=== PATIENT | male | born 1960 | race Caucasian/White ===

== ENCOUNTER 2020-02-04 13:26 | Outpatient (REF) | payer MEDICARE, MEDICAID, SELFPAY | END 2020-02-04 13:27 | disposition home or self-care (01) | LOC: HO.LAB 13:26 | PROVIDERS: Visit Provider Internal Medicine | DX: Z20.828 Contact with and (suspected) exposure to other viral communicable diseases (principal) | CPT/HCPCS: C9803; U0003 ==

== ENCOUNTER 2020-11-18 14:38 | Inpatient (IN) | payer MEDICARE, MEDICAID, SELFPAY ==
--- NOTE | ~2020-11-18 | CT_ITS ---
EXAMINATION: CT HEAD WITHOUT CONTRAST CLINICAL INFORMATION: Right-sided weakness and slurred speech COMPARISON: April 20, 2012 TECHNIQUE: Contiguous axial imaging was performed from the skull base to vertex without intravenous administration of contrast. This CT examination was performed using dose optimization techniques as appropriate, variously including the following: *Automated exposure control *Adjustment of mA and/or kV according to patient size (this includes techniques or standardized protocols for targeted exams where dose is matched to indication/reason for exam; i.e. extremities or head) *Use of iterative reconstruction technique DLP: 800 mGy-cm FINDINGS: There is no evidence of acute intracranial hemorrhage or territorial infarction. No abnormal mass effect or midline shift is seen. Brothers to white matter differentiation is well preserved. No extra-axial fluid collections are identified. The ventricles are normal in size. There is no abnormal attenuation within the brain parenchyma. The osseous structures and soft tissues are normal. The mastoid air cells and visualized portions of the paranasal sinuses are well aerated. CT/CT head/brain wo con IMPRESSION: No acute intracranial pathology.
--- NOTE | ~2020-11-18 | XR_ITS ---
EXAMINATION: XR CHEST CLINICAL INFORMATION: Stroke symptoms COMPARISON: October 08, 2007 TECHNIQUE: AP portable view of the chest was obtained. FINDINGS: There are small lung volumes. There is some density at both lung bases consistent with atelectasis. Heart normal size. No evidence of pulmonary edema. No pneumothorax or significant pleural effusion. XR/XR chest 1V IMPRESSION: Small lung volumes with right basilar atelectasis.
--- NOTE | ~2020-11-18 | CT_ITS ---
EXAMINATION: CT ANGIOGRAM OF THE HEAD CT ANGIOGRAM OF THE NECK CLINICAL INFORMATION: Right-sided deficits. COMPARISON: CT scan of the head obtained earlier 07/19/[address] scan 04/20/2012. TECHNIQUE: Test bolus series followed by intravenous administration 70 mL of Omnipaque 350. Helical imaging was performed in the axial plane from the mediastinum to the skull vertex. A delayed CT scan of the head was obtained. The degree of stenosis is based off NASCET criteria. The data was processed at the chief ultrasound technologist workstation for generation of MIP images. Three-dimensional volume rendered reformatted images were also generated at an offline 3-D workstation. This CT examination was performed using dose optimization techniques as appropriate, variously including the following: *Automated exposure control *Adjustment of mA and/or kV according to patient size (this includes techniques or standardized protocols for targeted exams where dose is matched to indication/reason for exam; i.e. extremities or head) *Use of iterative reconstruction technique DLP: 1635 mGy-cm. FINDINGS: CT Head: There is no evidence of acute intracranial hemorrhage or territorial infarction. No abnormal mass-effect or midline shift is seen. Brothers to white matter differentiation is well preserved. No extra-axial fluid collections are identified. There is no abnormal enhancement. The ventricles are normal in size. There is no abnormal attenuation within the brain parenchyma. There are no acute osseous findings. 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 It measures 1.2 x 0.8 cm on the current study and measured 0.9 x 0.6 cm on the prior exam. It has a slightly lobular contour on the current study. The mastoid air cells and visualized portions of the paranasal sinuses are well-aerated. CTA Neck: There is a classic configuration of the arch of the aorta. The great vessels of the neck are widely patent. The subclavian arteries appear normal bilaterally. The common carotid arteries have normal caliber. The carotid bifurcations bilaterally appear normal. The internal carotid arteries in the neck bilaterally have uniform and normal caliber. The origins of both vertebral arteries are well seen and appear normal. Both vertebral arteries are widely patent and demonstrate good opacification throughout their cervical course. The right vertebral artery is slightly dominant. Nonvascular: There are groundglass opacities in the upper lungs bilaterally. There are no pleural effusions or pneumothoraces. The thyroid gland appears normal. There is no cervical lymphadenopathy. The patient is edentulous in the mandible and the maxilla. There are moderate facet arthropathic changes particularly on the left. There are no acute fractures or subluxations in the cervical spine. CTA Head: In the anterior circulation, the distal internal carotid arteries within the neck appear normal. The intracranial internal carotid arteries and their bifurcations appear normal. The middle and anterior cerebral arteries bilaterally demonstrate normal caliber with no evidence of focal stenosis, aneurysm or vascular malformation. There is normal arborization of the middle cerebral artery branches. The anterior communicating artery is normal. In the posterior circulation, the right vertebral artery is dominant. The vertebral arteries intradurally have normal caliber. The basilar artery appears normal. The posterior cerebral arteries have normal caliber. The venous sinuses opacify normally. CT/CT angio head neck IMPRESSION: CT head and neck: 1. There are no acute bleeds or territorial infarcts. There are no masses or areas of abnormal enhancement. 2. 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 3. There is no cervical lymphadenopathy. CTA neck: 1. The cervical carotid and vertebral arteries are patent without evidence of flow-limiting stenosis. 2. Intracranially there are no focal stenoses, aneurysms or vascular malformations.
--- NOTE | ~2020-11-18 | MR_ITS ---
EXAMINATION: MR BRAIN WITHOUT CONTRAST CLINICAL INFORMATION: Transient ischemic attack. Stroke. COMPARISON: CTA head and neck from 11/18/2020. TECHNIQUE: MRI of the brain was obtained using routine sequences without contrast. FINDINGS: No focal restricted diffusion is demonstrated to suggest acute or subacute cerebral ischemia. No evidence of acute or chronic hemorrhagic products on heme-sensitive imaging. Few nonspecific scattered periventricular and deep white matter T2 FLAIR hyperintensities most commonly seen with mild underlying microangiopathy. No additional parenchymal signal abnormalities. The ventricles are normal in morphology and size. No abnormal mass effect. No midline shift. Normal appearance of the pituitary gland. No abnormalities of the posterior fossa with normal appearance of the brainstem and cerebellum. Normal arterial and venous vascular flow voids are present. Normal, homogeneous marrow signal. Mild mucosal thickening of the paranasal sinuses. No signal abnormalities within the mastoids. MR/MR head/brain wo con IMPRESSION: 1. No acute intracranial abnormalities. 2. Minimal nonspecific white matter changes most commonly seen with mild underlying microangiopathy.
--- NOTE | 2020-11-18 14:54 | ECG_ITS ---
Test Reason : AMS Blood Pressure : / mmHG Vent. Rate : 082 BPM Atrial Rate : 082 BPM P-R Int : 152 ms QRS Dur : 080 ms QT Int : 360 ms P-R-T Axes : 026 -17 080 degrees QTc Int : 420 ms Normal sinus rhythm Low voltage QRS Nonspecific T wave abnormality Abnormal ECG When compared with ECG of 19-SEP-2013 11:19, Nonspecific T wave abnormality is now Present Referred By: Ting Pisano Electronically Signed By:PAN COREY
[2020-11-18 14:57] VITALS: BP 130/86; BP 131/91; PULSE 80; PULSE 85; RESP 18; TEMP 36.4; O2SAT 100; O2SAT 95; BMI 32.5
--- NOTE | 2020-11-18 14:59 | ED.NEUROSD ---
HPI - Neuro Symptoms/Deficit General Chief Complaint: Altered Mental Status Stated Complaint: AMS PER HOME HEALTH AIDE Time Seen by Provider: 11/18/20 14:50 Source: patient and EMS Mode of arrival: EMS Limitations: other (poor historian, EMS states a person was there but they didn't give much information either when questioned) History of Present Illness HPI Narrative: lives home alone with staff coming in to check on him, unknown last known well ?this AM or yesterday he states it might have started on Sunday Onset (ago): unknown Location: speech, right arm, right leg and altered History of same: No Severity: moderate Quality: weak and constant Relieving factors: none Exacerbating factors: none Context: sudden onset On Anticoagulants: No Associated symptoms: other (dizziness, fell and hit head) Treatments Prior to Arrival: none Related Data Home Medications Medication Instructions Recorded Confirmed atorvastatin 10 mg tablet 1 tab PO DAILY 11/18/20 11/18/20 benztropine 1 mg tablet 1 tab PO BID 11/18/20 11/18/20 chlorpromazine 100 mg tablet 100 - 200 mg PO BID PRN 11/18/20 11/18/20 chlorpromazine 100 mg tablet 100 mg PO BEDTIME 11/18/20 11/18/20 cyclobenzaprine 10 mg tablet 1 tab PO BEDTIME PRN 11/18/20 11/18/20 divalproex 250 mg tablet,extended 1 tab PO QPM 11/18/20 11/18/20 release 24 hr divalproex 500 mg tablet,extended 1,000 mg PO QPM 11/18/20 11/18/20 release 24 hr divalproex 500 mg tablet,extended 500 mg PO DAILY 11/18/20 11/18/20 release 24 hr famotidine 40 mg tablet 1 tab PO BID 11/18/20 11/18/20 hydroxyzine HCl 50 mg tablet 1 tab PO TID 11/18/20 11/18/20 lisinopril 5 mg tablet 1 tab PO DAILY 11/18/20 11/18/20 propranolol 60 mg tablet 1 tab PO BID 11/18/20 11/18/20 topiramate 50 mg tablet 1 tab PO DAILY 11/18/20 11/18/20 Allergies Allergy/AdvReac Type Severity Reaction Status Date / Time aspirin [ASPIRIN] Allergy Unknown NOSE BLEEDS Verified 11/18/20 14:53 haloperidol [From HALDOL] Allergy Unknown EYES ROLL Verified 11/18/20 14:53 ibuprofen [IBUPROFEN] Allergy Unknown NOSE BLEEDS Verified 11/18/20 14:53 lactose [LACTOSE] Allergy Unknown DIARRHEA Verified 11/18/20 14:53 Penicillins [PENICILLINS] Allergy Unknown NAUSEA Verified 11/18/20 14:53 pineapple [PINEAPPLE] Allergy Unknown ITCHING,LISETH Verified 11/18/20 14:53 H dairy Allergy Unknown Unknown Uncoded 11/18/20 14:53 pineapple Allergy Unknown Unknown Uncoded 11/18/20 14:53 SEASONAL ALLERGIES Allergy Unknown SNEEZING,FACE Uncoded 12/11/19 16:07 SWELLING Review of Systems Review of Systems: Constitutional : No Weight loss, No Fever, No Chills, No Fatigue, No Malaise ENT/Mouth : No sore throat, No Rhinorrhea Eyes: No Eye Pain, No Swelling, No Redness Cardiovascular : No Chest Pain, No SOB, No Dyspnea on Exertion, No Orthopnea, No Edema, No Palpitations Respiratory : No Cough, No Sputum, No Wheezing Gastrointestinal : No Nausea, No Vomiting, No Diarrhea, No Constipation, No abdominal Pain, No Hematochezia, No Melena Genitourinary : No Dysuria, No Urinary Frequency, No Hematuria, Musculoskeletal : No joint pain, No Myalgias, No Joint Swelling Skin : No Skin Lesions, No rash Neuro : pos Weakness, No Numbness, pos Dizziness, No Headache Psych : No Anxiety/Panic, No Depression Heme/Lymph: No Bruising, No Bleeding,No Lymphadenopathy Endocrine : No Polyuria, No Polydipsia All other systems reviewed and are negative COUNT INCLUDES THE [facility] Past Medical History Attestation statement: The following information was validated with the patient. Medical History Bipolar disorder Cognitive developmental delay Diabetes HTN (hypertension) Social History Social History (Updated 11/18/20 @ 15:10 by Ting Pisano DO) Patient Tobacco Use Status: Never used Tobacco Use of substances other than those prescribed or required for medical reasons: No Advance Directives: No Advance Directives Information Provided: No Physical Exam Vital Signs: Vital Signs: Last Vital Signs Temp 97.5 F 11/18/20 14:57 Pulse 80 11/18/20 14:57 Resp 18 11/18/20 14:57 BP 131/91 H 11/18/20 14:57 Pulse Ox 95 11/18/20 14:57 Body Mass Index 32.5 Appearance: Alert. Oriented X3. No acute distress. Flat affect Eyes: Pupils equal, round and reactive to light. ENT: Pharynx normal. Neck: Normal inspection. Neck supple. CVS: Normal heart rate and rhythm. Pulses normal. Respiratory: No respiratory distress. Breath sounds normal. Abdomen: Soft and non-tender. Skin: Skin warm and dry. Normal skin color. Normal skin turgor. Extremities: No lower extremity edema. No calf ttp Neuro: slurred speech, R sided upper and lower ext 4/5 strength. Patient takes a while to absorb information and needs repetition to complete tasks. Course Course Course Narrative: signed out pending CTA and further workup. MDM - Neuro Symptoms/Deficit MDM Narrative Medical decision making narrative: 60 yo male with HTN, DM, bipolar, development delay has not been to our facility since M5 admission in 2014 comes in with very limited history of R sided weakness, dizziness, falls, slurred speech - EMS was told by a caregiver at home that she just found him like this today last known well not known. He reports it started Sunday. He does note he fell and hit his head and has a hard time walking. At this time not a candidate for tPa as I cannot get an accurate onset of symptoms. He also did not come with a medication list and he cannot tell me his home medications. Likely stroke - planned admit, CT head/CTA, EKG, labs Lab Data Result diagrams: 11/18/20 15:56 11/18/20 15:56 Labs: Lab Results 11/18/20 Range/Units 14:57 POC Glucose 143 H (60-115) mg/dL ECG Data Attestation: I personally reviewed and interpreted this ECG as follows: ECG interpretation date: 11/18/20 ECG interpretation time: 15:03 Interpretation: Rate: 82 Rhythm: NSR [place]: left Normal P waves. Normal LUIS ANTONIO. Normal QRS complex. ST T wave : nonspecific, no ELINOR qTC: normal prior studies: no acute ischemia The study has been interpreted contemporaneously by me. . NIH Stroke Scale Internal: Initial- Upon Arrival Level of Consciousness: Alert Level of Consciousness Questions: Answers both questions correctly Level of Consciousness Commands: Performs one task correctly Best Gaze: Normal Visual: No visual loss Facial Palsy: Minor paralyis Motor Arm (Right): Drift Motor Arm (Left): No drift Motor Leg (Right): Drift Motor Leg (Left): No drift Limb Ataxia: Absent Sensory: Normal Best Language: No aphasia Dysarthia: Mild to moderate dysarthria Extinction and Inattention: No abnormality Score: 5 Discharge Plan Discharge Clinical Impression: Weakness Prescriptions: No Action cyclobenzaprine 10 mg tablet 1 tab PO BEDTIME PRN (Reason: muscle spasm) RF: 0 atorvastatin 10 mg tablet 1 tab PO DAILY RF: 0 chlorpromazine 100 mg tablet 100 mg PO BEDTIME RF: 0 famotidine 40 mg tablet 1 tab PO BID RF: 0 propranolol 60 mg tablet 1 tab PO BID RF: 0 hydroxyzine HCl 50 mg tablet 1 tab PO TID RF: 0 divalproex 500 mg tablet extended release 24 hr 500 mg PO DAILY RF: 0 benztropine 1 mg tablet 1 tab PO BID RF: 0 lisinopril 5 mg tablet 1 tab PO DAILY RF: 0 divalproex 250 mg tablet extended release 24 hr 1 tab PO QPM RF: 0 topiramate 50 mg tablet 1 tab PO DAILY RF: 0 divalproex 500 mg tablet extended release 24 hr 1,000 mg PO QPM RF: 0 chlorpromazine 100 mg tablet 100 - 200 mg PO BID PRN (Reason: Agitation) RF: 0
[2020-11-18 15:05] LABS: Glucose, Whole Blood 143 mg/dL (60-115)
--- NOTE | 2020-11-18 15:38 | PHA.MEDREC ---
Pharmacy Consult ? Medication Reconciliation Pharmacy has completed the medication reconciliation. The Med Rec was completed using the external pharmacy fill history, unfortunately I was not able to confirm with the patient or any family members. Alicia Tobar, PharmD [phone]
[2020-11-18 16:04] LABS: MANUAL DIFF FLAG NO
[2020-11-18 16:08] LABS: Basophils Percent Auto 0.4 % (0-2); Eosinophils Percent Auto 0.9 % (0-4); Hematocrit 43.3 % (42-52); Imm Gran Abs Auto 0.01 X10*3/uL (0.00-0.03); Imm Gran Pct Auto 0.2 % (0.0-0.4); Lymphocytes Absolute Auto 2.1 X10*3/uL (1.2-4.9); Lymphocytes Percent Auto 45.3 % (20-40); Mean Corpuscular HGB Conc 34.6 g/dl (31.0-36.0); Mean Corpuscular Hemoglobin 29.9 pg (27.0-33.0); Mean Corpuscular Volume 86.4 fL (80-98); Monocytes Absolute Auto 0.7 X10*3/uL (0.1-1.2); Monocytes Percent Auto 15.3 % (2-11); Neutrophils Absolute Auto 1.8 X10*3/uL (2.0-8.3); Neutrophils Percent Auto 37.9 % (45-73); Platelet Count 137 X10*3/uL (160-400); Red Blood Count 5.01 X10*6/uL (4.60-5.80); Red Cell Distribution Width 13.6 % (11.0-16.0); White Blood Count 4.6 X10*3/uL (4.8-10.8)
[2020-11-18 16:13] LABS: INTERNATIONAL NORM RATIO 1.1 (0.9-1.1); Prothrombin Time 12.8 SEC (9.9-13.0)
[2020-11-18 16:15] LABS: Partial Thromboplastin Time 42.5 SEC (24.1-38.0)
[2020-11-18 16:19] LABS: COVID-19 Test Negative (Negative)
[2020-11-18 16:30] LABS: Ethanol < 10 mg/dL
[2020-11-18 16:32] LABS: Anion Gap 12 (12-20); Blood Urea Nitrogen 15 mg/dL (9-16); Calcium 9.2 mg/dL (8.4-10.2); Carbon Dioxide 24 mmol/L (22-29); Chloride 107 mmol/L (96-108); Creatinine Clr Calc Pharmacy 94.7; Estimated Glomerular Filt Rate > 60; Glucose Random 124 mg/dL (60-115); Potassium 4.4 mmol/L (3.3-5.1); Sodium 139 mmol/L (135-145)
[2020-11-18 16:34] LABS: Alanine Aminotransferase 36 U/L (0-40); Albumin Level 4.4 g/dL (3.5-5.0); Alkaline Phosphatase 50 U/L (39-117); Aspartate Amino Transferase 33 U/L (5-37); Bilirubin Direct 0.3 mg/dL (0.0-0.5); Bilirubin Total 0.8 mg/dL (0.0-1.0); Magnesium 2.1 mg/dL (1.6-2.6); Total Protein 6.9 g/dL (6.5-8.0)
[2020-11-18 16:46] LABS: Troponin-I High Sensitivity < 3.5 ng/L (<3.5-35.0); Valproate 117.1 mcg/mL (50.0-100.0)
[2020-11-18 16:53] LABS: TSH reflex Free T4 2.26 uIU/mL (0.32-4.0)
[2020-11-18] MEDS: iohexoL 350 MG/ML 100 ML INFUS..BTL IV (17:12)
[2020-11-18 18:03] VITALS: BP 118/78; PULSE 72; RESP 20; TEMP 36.5; O2SAT 97
[2020-11-18 18:16] LABS: Glucose Urine UA NEG (NEG); Leukocyte Esterase Urine NEG (NEG); Nitrite Urine NEG (NEG); PH 6.5 (5.0-8.0); Urine Blood NEG (NEG); Urine Ketones NEG (NEG); Urine Protein NEG (NEG-TRACE)
[2020-11-18 18:25] LABS: Appearance Urine HAZY; Color Urine YELLOW
[2020-11-18 18:35] LABS: Amphetamine Screen Urine Not Detected (Not Detect); Barbiturates, Urine Not Detected (Not Detect); Benzodiazepines Screen Urine Not Detected (Not Detect); Cannabinoid Screen Urine Not Detected (Not Detect); Cocaine Screen Urine Not Detected (Not Detect); Fentanyl, urine Not Detected (Not Detect); Opiate Screen Urine Not Detected (Not Detect); Phencyclidine Screen Urine Not Detected (Not Detect)
--- NOTE | 2020-11-18 18:56 | PC.NURSE ---
REPORT TAKEN FROM CHRISTI RN, FIRST CONTACT WITH PT. SITTING UP IN BED SKIN PWD RESPIRATIONS EVEN UNLABORED. OFFERS NO COMPLAINTS AT THIS TIME, PT AWAITING HOSPITALIST CONSULT FOR ADMISSION. AWARE OF PLAN OF CARE.
--- NOTE | 2020-11-18 19:34 | PC.NURSE ---
HOSPITALIST AT BEDSIDE FOR CONSULT.
--- NOTE | 2020-11-18 22:29 | PM.IMHP ---
History of Present Illness Date of Service: 11/18/20 Chief Complaint: Weakness, slurred speech This is a 60-year-old male with past medical history of cognitive developmental delay, diabetes, hypertension, bipolar disorder who presents to the hospital with complaints of weakness of slurred speech. As mentioned patient has a cognitive delay therefore his a poor historian but according to the nursing staff that checks on him at home they noticed the patient to have weakness on the right side. Per patient he is not sure how long it has been going on possibly for a week, he is also reporting slurred speech test also been going on for a week. Patient denies any palpitations, no chest pain, no abdominal pain nausea or vomiting, no diarrhea constipation, no shortness of breath, no urinary symptoms and no lower extremity edema. He reports no injury to the back, no change in his vision, no headache. 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 No cervical carotid or vertebral artery stenosis, and no focal stenosis intracranially. Patient will be admitted for further evaluation Review of Systems Review of Systems: Yes all other systems are reviewed and are negative [facility] Medical History Bipolar disorder Cognitive developmental delay Diabetes HTN (hypertension) Social History Household Members: None Housing: Apartment Do you presently have visiting nurse or other home services: Yes Patient Tobacco Use Status: Never used Tobacco Use of substances other than those prescribed or required for medical reasons: No Have you been hit, kicked, punched, or otherwise hurt by someone within the past year? If so, by whom?: No Do you feel safe in your current relationship?: No Is there a partner from a previous relationship who is making you feel unsafe now?: No Are you made to feel afraid or neglected: No Advance Directives: No Advance Directives Information Provided: No Do you have thoughts of harming others: None Do you have a plan to hurt others: No Plan Recently lost weight without trying: No How much weight loss: Not applicable Eating poorly because of decreased appetite: No Nutrition screen score: 0 Nutrition Risks: No Nutritional Risk Meds Allergies Allergy/AdvReac Type Severity Reaction Status Date / Time aspirin [ASPIRIN] Allergy Unknown NOSE BLEEDS Verified 11/18/20 14:53 haloperidol [From HALDOL] Allergy Unknown EYES ROLL Verified 11/18/20 14:53 ibuprofen [IBUPROFEN] Allergy Unknown NOSE BLEEDS Verified 11/18/20 14:53 lactose [LACTOSE] Allergy Unknown DIARRHEA Verified 11/18/20 14:53 Penicillins [PENICILLINS] Allergy Unknown NAUSEA Verified 11/18/20 14:53 pineapple [PINEAPPLE] Allergy Unknown ITCHING,LISETH Verified 11/18/20 14:53 H dairy Allergy Unknown Unknown Uncoded 11/18/20 14:53 pineapple Allergy Unknown Unknown Uncoded 11/18/20 14:53 SEASONAL ALLERGIES Allergy Unknown SNEEZING,FACE Uncoded 12/11/19 16:07 SWELLING Active Medications: Current Medications Generic Name Dose Route Start Last Admin Trade Name Freq PRN Reason Stop Dose Admin Pharmacy Consult 1 each 11/18/20 14:57 Consult Rx Perform Med Rec MISCELLANE ONCE PRN Consult order Home Medications Medication Instructions Recorded Confirmed Last Taken Type atorvastatin 10 mg tablet 1 tab PO DAILY 11/18/20 11/18/20 Unknown History benztropine 1 mg tablet 1 tab PO BID 11/18/20 11/18/20 Unknown History chlorpromazine 100 mg tablet 100 - 200 mg PO BID PRN 11/18/20 11/18/20 Unknown History chlorpromazine 100 mg tablet 100 mg PO BEDTIME 11/18/20 11/18/20 Unknown History cyclobenzaprine 10 mg tablet 1 tab PO BEDTIME PRN 11/18/20 11/18/20 Unknown History divalproex 250 mg tablet,extended 1 tab PO QPM 11/18/20 11/18/20 Unknown History release 24 hr divalproex 500 mg tablet,extended 1,000 mg PO QPM 11/18/20 11/18/20 Unknown History release 24 hr divalproex 500 mg tablet,extended 500 mg PO DAILY 11/18/20 11/18/20 Unknown History release 24 hr famotidine 40 mg tablet 1 tab PO BID 11/18/20 11/18/20 Unknown History hydroxyzine HCl 50 mg tablet 1 tab PO TID 11/18/20 11/18/20 Unknown History lisinopril 5 mg tablet 1 tab PO DAILY 11/18/20 11/18/20 Unknown History propranolol 60 mg tablet 1 tab PO BID 11/18/20 11/18/20 Unknown History topiramate 50 mg tablet 1 tab PO DAILY 11/18/20 11/18/20 Unknown History Physical Exam Vital Signs and Narrative: Vital Signs: Last Vital Signs Temp 97.7 F 11/18/20 18:03 Pulse 72 11/18/20 18:03 Resp 20 11/18/20 18:03 BP 118/78 11/18/20 18:03 Pulse Ox 97 11/18/20 18:03 Body Mass Index 32.5 Const: General: cooperative and no acute distress Orientation/consciousness: patient oriented x3 Eyes: General: appearance normal, both eyes and all related structures Pupils: Equal, round and reactive pupils present Resp: Effort & Inspection: normal respiratory effort and able to speak in complete sentences Auscultation: clear to auscultation bilaterally Cardio: Rate: regular rate Rhythm: regular rhythm GI: Palpation (GI): Soft to palpation Auscultation: normal bowel sounds Skin: General skin exam: no rashes or lesions noted Neuro: Other: Patient has 3/5 strength in the right upper and lower extremity Speech comprehensible but slow. per patient he reports that he is having slurred speech General: patient oriented x3 Cranial nerves: Yes Equal, round and reactive pupils present Extrem: General: Yes normal to inspection and Yes no pedal edema Results Labs CBC and Chem 7: 11/18/20 15:56 11/18/20 15:56 Labs: Laboratory Results - last 24 hr 11/18/20 11/18/20 11/18/20 14:57 15:56 15:56 MCV 86.4 MCH 29.9 MCHC 34.6 RDW 13.6 Plt Count 137 L MPV 9.0 L Immature Gran % (Auto) 0.2 Neut % (Auto) 37.9 L Lymph % (Auto) 45.3 H [place] % (Auto) 15.3 H Eos % (Auto) 0.9 Baso % (Auto) 0.4 Lymph # (Auto) 2.1 [place] # (Auto) 0.7 Eos # (Auto) 0.0 Baso # (Auto) 0.0 Abs Immat Gran (auto) 0.01 Absolute Neuts (auto) 1.8 L Absolute Nucleated RBC 0.000 Nucleated RBC % (auto) 0.0 PT INR APTT Anion Gap 12 Estim Creat Clear Calc 94.7 Estimated GFR > 60 POC Glucose 143 H Random Glucose 124 H Calcium 9.2 Magnesium Total Bilirubin Direct Bilirubin AST ALT Alkaline Phosphatase Troponin I High Sens Total Protein Albumin TSH Urine Color Urine Appearance Urine pH Ur Specific [place] Urine Protein Urine Glucose (UA) Urine Ketones Urine Blood Urine Nitrite Ur Leukocyte Esterase Urine Opiates Screen Urine Fentanyl Screen Ur Barbiturates Screen Valproic Acid Ur Phencyclidine Scrn Ur Amphetamines Screen U Benzodiazepines Scrn Urine Cocaine Screen U Marijuana (THC) Screen Ethyl Alcohol COVID-19 (NATALIE) COVID-alaTest Com 11/18/20 11/18/20 11/18/20 15:56 15:56 15:56 MCV MCH MCHC RDW Plt Count MPV Immature Gran % (Auto) Neut % (Auto) Lymph % (Auto) [place] % (Auto) Eos % (Auto) Baso % (Auto) Lymph # (Auto) [place] # (Auto) Eos # (Auto) Baso # (Auto) Abs Immat Gran (auto) Absolute Neuts (auto) Absolute Nucleated RBC Nucleated RBC % (auto) PT 12.8 INR 1.1 APTT 42.5 H Anion Gap Estim Creat Clear Calc Estimated GFR POC Glucose Random Glucose Calcium Magnesium 2.1 Total Bilirubin 0.8 Direct Bilirubin 0.3 AST 33 ALT 36 Alkaline Phosphatase 50 Troponin I High Sens Total Protein 6.9 Albumin 4.4 TSH Urine Color Urine Appearance Urine pH Ur Specific [place] Urine Protein Urine Glucose (UA) Urine Ketones Urine Blood Urine Nitrite Ur Leukocyte Esterase Urine Opiates Screen Urine Fentanyl Screen Ur Barbiturates Screen Valproic Acid Ur Phencyclidine Scrn Ur Amphetamines Screen U Benzodiazepines Scrn Urine Cocaine Screen U Marijuana (THC) Screen Ethyl Alcohol COVID-19 (NATALIE) Negative COVID-alaTest Com See Note 11/18/20 11/18/20 11/18/20 15:56 15:56 15:56 MCV MCH MCHC RDW Plt Count MPV Immature Gran % (Auto) Neut % (Auto) Lymph % (Auto) [place] % (Auto) Eos % (Auto) Baso % (Auto) Lymph # (Auto) [place] # (Auto) Eos # (Auto) Baso # (Auto) Abs Immat Gran (auto) Absolute Neuts (auto) Absolute Nucleated RBC Nucleated RBC % (auto) PT INR APTT Anion Gap Estim Creat Clear Calc Estimated GFR POC Glucose Random Glucose Calcium Magnesium Total Bilirubin Direct Bilirubin AST ALT Alkaline Phosphatase Troponin I High Sens < 3.5 Total Protein Albumin TSH 2.26 Urine Color Urine Appearance Urine pH Ur Specific [place] Urine Protein Urine Glucose (UA) Urine Ketones Urine Blood Urine Nitrite Ur Leukocyte Esterase Urine Opiates Screen Urine Fentanyl Screen Ur Barbiturates Screen Valproic Acid 117.1 H* Ur Phencyclidine Scrn Ur Amphetamines Screen U Benzodiazepines Scrn Urine Cocaine Screen U Marijuana (THC) Screen Ethyl Alcohol < 10 COVID-19 (NATALIE) COVID-19 [employer]ries [employer] 11/18/20 11/18/20 17:48 17:48 MCV MCH MCHC RDW Plt Count MPV Immature Gran % (Auto) Neut % (Auto) Lymph % (Auto) [place] % (Auto) Eos % (Auto) Baso % (Auto) Lymph # (Auto) [place] # (Auto) Eos # (Auto) Baso # (Auto) Abs Immat Gran (auto) Absolute Neuts (auto) Absolute Nucleated RBC Nucleated RBC % (auto) PT INR APTT Anion Gap Estim Creat Clear Calc Estimated GFR POC Glucose Random Glucose Calcium Magnesium Total Bilirubin Direct Bilirubin AST ALT Alkaline Phosphatase Troponin I High Sens Total Protein Albumin TSH Urine Color YELLOW Urine Appearance HAZY Urine pH 6.5 Ur Specific [place] 1.010 Urine Protein NEG Urine Glucose (UA) NEG Urine Ketones NEG Urine Blood NEG Urine Nitrite NEG Ur Leukocyte Esterase NEG Urine Opiates Screen Not Detected Urine Fentanyl Screen Not Detected Ur Barbiturates Screen Not Detected Valproic Acid Ur Phencyclidine Scrn Not Detected Ur Amphetamines Screen Not Detected U Benzodiazepines Scrn Not Detected Urine Cocaine Screen Not Detected U Marijuana (THC) Screen Not Detected Ethyl Alcohol COVID-19 (NATALIE) COVID-19 Clin Com Imaging Radiologist's Impressions: Impressions Head CT 11/18/20 14:57 IMPRESSION: No acute intracranial pathology. Head/Neck CTA 11/18/20 14:57 IMPRESSION: CT head and neck: 1. There are no acute bleeds or territorial infarcts. There are no masses or areas of abnormal enhancement. 2. 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 3. There is no cervical lymphadenopathy. CTA neck: 1. The cervical carotid and vertebral arteries are patent without evidence of flow-limiting stenosis. 2. Intracranially there are no focal stenoses, aneurysms or vascular malformations. Chest X-Ray 11/18/20 14:59 IMPRESSION: Small lung volumes with right basilar atelectasis. Assessment and Plan (1) CVA (cerebral vascular accident): Status: Acute (2) Weakness: Status: Acute This is a 60-year-old male with past medical history of cognitive developmental delay, hypertension, diabetes who presents to the hospital with complaints of weakness in possible source speech. Unknown last well known time # CVA - patient has residual weakness on the right side with no report of history of CVA in the past - CT angiogram head and neck and head CT head negative - unknown when his symptoms started - at this time will order an MRI - consult neurology - continue high-dose statin - patient allergic to # seizure disorder? - continue Depakote - although has elevated valproic acid - evaluation by Neurology # hypertension - stable - continue lisinopril and propranolol # diabetes - not on any anti hyperglycemics - low-dose sliding scale insulin - diabetic diet DVT prophylaxis: Lovenox Quality Stroke Does the patient have a stroke diagnosis?: No VTE Prior VTE?: No VTE Risk Level:: Medical - moderate - high VTE Device Contraindication: Treatment Not Indicated VTE Drug Contraindication: N/A - Med Ordered
[2020-11-18 23:51] VITALS: BP 158/96; PULSE 73; RESP 16; TEMP 36.4; O2SAT 98
[2020-11-19] VITALS (10 sets, daily range): BP systolic 112–158; BP diastolic 74–96; PULSE 68–76; RESP 14–20; TEMP 36.1–36.6; O2SAT 95–98; BMI 30.8
[2020-11-19] MEDS: Benztropine Mesylate 1 MG TABLET PO ×3 (00:34→21:43)
[2020-11-19] MEDS: chlorproMAZINE HCl 100 MG TABLET PO ×2 (00:34→21:43)
[2020-11-19] MEDS: Famotidine 20 MG TABLET 40 MG PO ×3 (00:35→21:43)
[2020-11-19] MEDS: Divalproex Sodium ER 500 MG TAB.ER.24H 1000 MG PO ×2 (00:35→21:44)
[2020-11-19] MEDS: Divalproex Sodium ER 250 MG TAB.ER.24H PO ×2 (00:35→21:42)
[2020-11-19] MEDS: Propranolol HCL 20 MG TABLET 60 MG PO ×3 (00:36→21:42)
[2020-11-19] MEDS: hydrOXYzine HCL 50 MG TABLET PO ×3 (00:36→21:43)
[2020-11-19 06:16] LABS: MANUAL DIFF FLAG NO
[2020-11-19 06:36] LABS: Basophils Percent Auto 0.3 % (0-2); Eosinophils Absolute Auto 0.1 X10*3/uL (0.0-0.4); Eosinophils Percent Auto 1.2 % (0-4); Hematocrit 47.7 % (42-52); Imm Gran Abs Auto 0.02 X10*3/uL (0.00-0.03); Imm Gran Pct Auto 0.3 % (0.0-0.4); Lymphocytes Absolute Auto 3.4 X10*3/uL (1.2-4.9); Lymphocytes Percent Auto 50.1 % (20-40); Mean Corpuscular HGB Conc 33.5 g/dl (31.0-36.0); Mean Corpuscular Hemoglobin 29.4 pg (27.0-33.0); Mean Corpuscular Volume 87.7 fL (80-98); Mean Platelet Volume 9.5 fL (9.4-12.4); Monocytes Absolute Auto 0.9 X10*3/uL (0.1-1.2); Monocytes Percent Auto 13.6 % (2-11); Neutrophils Absolute Auto 2.4 X10*3/uL (2.0-8.3); Neutrophils Percent Auto 34.5 % (45-73); Platelet Count 141 X10*3/uL (160-400); Red Blood Count 5.44 X10*6/uL (4.60-5.80); Red Cell Distribution Width 13.6 % (11.0-16.0); White Blood Count 6.8 X10*3/uL (4.8-10.8)
[2020-11-19 06:50] LABS: Anion Gap 12 (12-20); Blood Urea Nitrogen 14 mg/dL (9-16); Calcium 9.4 mg/dL (8.4-10.2); Carbon Dioxide 28 mmol/L (22-29); Chloride 103 mmol/L (96-108); Cholesterol 126 mg/dL; Creatinine Clr Calc Pharmacy 94.2; Estimated Glomerular Filt Rate > 60; Glucose Random 127 mg/dL (60-115); HDL Cholesterol 34 mg/dL; LDL Cholesterol Calculated 67 mg/dl; Potassium 4.1 mmol/L (3.3-5.1); Sodium 139 mmol/L (135-145); Triglycerides 126 mg/dL
[2020-11-19 07:48] LABS: Glucose, Whole Blood 137 mg/dL (60-115)
[2020-11-19] MEDS: Enoxaparin Sodium 40 MG/0.4 ML SYRINGE SUBCUT (08:57)
[2020-11-19] MEDS: Topiramate 25 MG TABLET 50 MG PO (08:58)
[2020-11-19] MEDS: Clopidogrel Bisulfate 75 MG TABLET PO (08:59)
[2020-11-19] MEDS: Divalproex Sodium ER 500 MG TAB.ER.24H PO (08:59)
[2020-11-19] MEDS: lisinopriL 5 MG TABLET PO (08:59)
[2020-11-19] MEDS: Atorvastatin Calcium 10 MG TABLET PO (09:02)
--- NOTE | 2020-11-19 09:20 | MHC.CM.PN ---
Addendum entered by Kalie Escobar 11/19/20 15:21: Julieta, contingents supervisor from [facility] requested an update on DX, POC, anticipated discharge date. She did not have a [facility] ID badge. T/W provided contact info for the Case management office. T/W requested a release of info document by faxed to CM office. The patient was unable to give verbal consent because he was sedated at the time. Julieta stated her understanding of the hospitalization. No additional information was given. She did provide information to this parts data writer. [facility] provides 12 hours of outreach per week. ON weekends ACUTE CARE AVAILABLE 16/10 . Sunday-Sunday [phone]. They may provide transportation at discharge. She stated that the Pt is active with [facility] Pt had stated that he did not have any services. [place] referral has been sent. THE PATIENT HAS BEEN CHANGED TO obs: CODE 44. CHAN 11/19/20. mri NEG FOR cva. CM WILL FOLLOW. Original Note: IMM 11/19/20 Male 60 DX TIA/CVA Patient lives alone. He is independent all functional mobility. DP home no services [facility] shuttle to home at discharge. CM will follow.
[2020-11-19] MEDS: LORazepam 2 MG/ML VIAL 1 MG IVPUSH (09:45)
[2020-11-19 11:28] LABS: Glucose, Whole Blood 137 mg/dL (60-115)
--- NOTE | 2020-11-19 11:41 | PM.NEUROCN ---
History of Present Illness Data of Consult Service Date: 11/19/20 Primary Care Provider: Unknown Physician HPI Reason for consult: Possible stroke 60 years old man with underlying history of cognitive difficulties resident of an institution was brought to hospital with change in mental status and right-sided weakness. He was unable to provide any meaningful history. There was no witnessing of any seizure. There was no history of any trauma. [facility] Past Medical History Medical History Bipolar disorder Cognitive developmental delay Diabetes HTN (hypertension) Social History Social History Household Members: None Housing: Apartment Do you presently have visiting nurse or other home services: Yes Patient Tobacco Use Status: Never used Tobacco Use of substances other than those prescribed or required for medical reasons: No Have you been hit, kicked, punched, or otherwise hurt by someone within the past year? If so, by whom?: No Do you feel safe in your current relationship?: No Is there a partner from a previous relationship who is making you feel unsafe now?: No Are you made to feel afraid or neglected: No Advance Directives: No Advance Directives Information Provided: No Do you have thoughts of harming others: None Do you have a plan to hurt others: No Plan Recently lost weight without trying: No How much weight loss: Not applicable Eating poorly because of decreased appetite: No Nutrition screen score: 0 Nutrition Risks: No Nutritional Risk service: No Current occupational status: disabled Meds Allergies Allergy/AdvReac Type Severity Reaction Status Date / Time aspirin [ASPIRIN] Allergy Unknown NOSE BLEEDS Verified 11/18/20 14:53 haloperidol [From HALDOL] Allergy Unknown EYES ROLL Verified 11/18/20 14:53 ibuprofen [IBUPROFEN] Allergy Unknown NOSE BLEEDS Verified 11/18/20 14:53 lactose [LACTOSE] Allergy Unknown DIARRHEA Verified 11/18/20 14:53 Penicillins [PENICILLINS] Allergy Unknown NAUSEA Verified 11/18/20 14:53 pineapple [PINEAPPLE] Allergy Unknown ITCHING,LISETH Verified 11/18/20 14:53 H dairy Allergy Unknown Unknown Uncoded 11/18/20 14:53 pineapple Allergy Unknown Unknown Uncoded 11/18/20 14:53 SEASONAL ALLERGIES Allergy Unknown SNEEZING,FACE Uncoded 12/11/19 16:07 SWELLING Active Medications: Current Medications Generic Name Dose Route Start Last Admin Trade Name Freq PRN Reason Stop Dose Admin Acetaminophen 650 mg 11/18/20 23:22 Acetaminophen 325 Mg Tablet PO Q6H PRN Pain, Mild (Pain Scale 1-3) Atorvastatin Calcium 10 mg 11/19/20 09:00 11/19/20 09:02 Atorvastatin Calcium 10 Mg Tablet PO 10 mg DAILY TAI Administration Benztropine Mesylate 1 mg 11/18/20 23:22 11/19/20 08:58 Benztropine Mesylate 1 Mg Tablet PO 1 mg BID TAI Administration Chlorpromazine HCl 100 mg 11/18/20 23:22 11/19/20 00:34 Chlorpromazine Hcl 100 Mg Tablet PO 100 mg BEDTIME TAI Administration Chlorpromazine HCl 100 - 200 mg 11/18/20 23:22 Chlorpromazine Hcl 100 Mg Tablet PO BID PRN Agitation Clopidogrel Bisulfate 75 mg 11/19/20 09:00 11/19/20 08:59 Clopidogrel Bisulfate 75 Mg Tablet PO 75 mg DAILY TAI Administration Cyclobenzaprine HCl 10 mg 11/18/20 23:22 Cyclobenzaprine Hcl 10 Mg Tablet PO BEDTIME PRN muscle spasm Dextrose 25 gm 11/18/20 23:22 Dextrose 50 % 25 Gm/50 Ml Vial IVPUSH Q15M PRN per Hypoglycemia Standing Ord. Protocol Divalproex Sodium 250 mg 11/18/20 23:22 11/19/20 00:35 Divalproex Sodium Er 250 Mg Tab.Er.24h PO 250 mg BEDTIME TAI Administration Divalproex Sodium 500 mg 11/19/20 09:00 11/19/20 08:59 Divalproex Sodium Er 500 Mg Tab.Er.24h PO 500 mg DAILY TAI Administration Divalproex Sodium 1,000 mg 11/18/20 23:22 11/19/20 00:35 Divalproex Sodium Er 500 Mg Tab.Er.24h PO 1,000 mg BEDTIME TAI Administration Docusate Sodium 100 mg 11/18/20 23:22 Docusate Sodium 100 Mg Capsule PO DAILY PRN Constipation Enoxaparin Sodium 40 mg 11/19/20 09:00 11/19/20 08:57 Enoxaparin Sodium 40 Mg/0.4 Ml Syringe SUBCUT 40 mg Q24H TAI Administration Famotidine 40 mg 11/18/20 23:22 11/19/20 08:58 Famotidine 20 Mg Tablet PO 40 mg BID TAI Administration Glucose 15 gm 11/18/20 23:22 Glucose Gel 15 Gm Gel..Gram. PO Q15M PRN per Hypoglycemia Standing Ord. Protocol Hydroxyzine HCl 50 mg 11/18/20 23:22 11/19/20 08:59 Hydroxyzine Hcl 50 Mg Tablet PO 50 mg TID TAI Administration Insulin Human Lispro 0 unit 11/19/20 07:30 11/19/20 08:25 Insulin Lispro 100 Unit/Ml 3 Ml Vial SUBCUT Not Given QIDACHS [facility] Protocol Lisinopril 5 mg 11/19/20 09:00 11/19/20 08:59 Lisinopril 5 Mg Tablet PO 5 mg DAILY TAI Administration Protocol Lorazepam 1 mg 11/19/20 08:48 11/19/20 09:45 Lorazepam 2 Mg/Ml Vial IVPUSH 1 mg ONCE PRN Administration anxiety/restlessness Ondansetron HCl 4 mg 11/18/20 23:22 Ondansetron Hcl 4 Mg/2 Ml Vial IVPUSH Q8H PRN Nausea and Vomiting Pharmacy Consult 1 each 11/18/20 14:57 Consult Rx Perform Med Rec MISCELLANE ONCE PRN Consult order Propranolol HCl 60 mg 11/18/20 23:22 11/19/20 09:01 Propranolol Hcl 20 Mg Tablet PO 60 mg BID TAI Administration Protocol Topiramate 50 mg 11/19/20 09:00 11/19/20 08:58 Topiramate 25 Mg Tablet PO 50 mg DAILY TAI Administration Home Medications Medication Instructions Recorded Confirmed Last Taken Type atorvastatin 10 mg tablet 1 tab PO DAILY 11/18/20 11/18/20 Unknown History benztropine 1 mg tablet 1 tab PO BID 11/18/20 11/18/20 Unknown History chlorpromazine 100 mg tablet 100 - 200 mg PO BID PRN 11/18/20 11/18/20 Unknown History chlorpromazine 100 mg tablet 100 mg PO BEDTIME 11/18/20 11/18/20 Unknown History cyclobenzaprine 10 mg tablet 1 tab PO BEDTIME PRN 11/18/20 11/18/20 Unknown History divalproex 250 mg tablet,extended 1 tab PO QPM 11/18/20 11/18/20 Unknown History release 24 hr divalproex 500 mg tablet,extended 1,000 mg PO QPM 11/18/20 11/18/20 Unknown History release 24 hr divalproex 500 mg tablet,extended 500 mg PO DAILY 11/18/20 11/18/20 Unknown History release 24 hr famotidine 40 mg tablet 1 tab PO BID 11/18/20 11/18/20 Unknown History hydroxyzine HCl 50 mg tablet 1 tab PO TID 11/18/20 11/18/20 Unknown History lisinopril 5 mg tablet 1 tab PO DAILY 11/18/20 11/18/20 Unknown History propranolol 60 mg tablet 1 tab PO BID 11/18/20 11/18/20 Unknown History topiramate 50 mg tablet 1 tab PO DAILY 11/18/20 11/18/20 Unknown History Physical Exam Vital Signs: Vital Signs: Last Vital Signs Temp 97.4 F 11/19/20 11:10 Pulse 76 11/19/20 11:10 Resp 20 11/19/20 11:10 BP 136/95 H 11/19/20 11:10 Pulse Ox 98 11/19/20 11:10 Body Mass Index 30.8 Neuro: Other: He was sleeping with eyes closed. He barely responded to verbal commands. He was responding to pain. He followed some one-step commands. Face was symmetrical. Pupils were round reactive. There was no eye deviation or jerking. There was no tremor or convulsion type of activity. Deep tendon reflexes were absent with flexor plantars. There was no abnormal posturing. Results Labs CBC & Chem 7: 11/19/20 05:15 11/19/20 05:15 Labs: Short CBC 11/18/20 11/19/20 Range/Units 15:56 05:15 WBC 4.6 L 6.8 (4.8-10.8) X10*3/uL Hgb 15.0 16.0 (14.0-18.0) g/dl Hct 43.3 47.7 (42-52) % Plt Count 137 L 141 L (160-400) X10*3/uL BMP 11/18/20 11/19/20 15:56 05:15 Sodium 139 139 Potassium 4.4 4.1 Chloride 107 103 Carbon Dioxide 24 28 BUN 15 14 Creatinine 0.99 0.97 Calcium 9.2 9.4 Liver Function 08/26/21 Range/Units 15:56 Total Bilirubin 0.8 (0.0-1.0) mg/dL Direct Bilirubin 0.3 (0.0-0.5) mg/dL AST 33 (5-37) U/L ALT 36 (0-40) U/L Alkaline Phosphatase 50 (39-117) U/L Albumin 4.4 (3.5-5.0) g/dL Urine 11/18/20 Range/Units 17:48 Urine Color YELLOW Urine Appearance HAZY Urine pH 6.5 (5.0-8.0) Ur Specific [place] 1.010 (1.005-1.025) Urine Protein NEG (NEG-TRACE) MG/DL Urine Glucose (UA) NEG (NEG) MG/DL His noncontrast head CT, CTA of brain and neck, and noncontrast brain MRI did not reveal any significant pathology. Assessment and Plan (1) Encephalopathy: Status: Acute 60 years old man with unclear nature of underlying cognitive difficulties was brought to hospital with change in mental status and possible right-sided weakness. At this time there was no focal finding on examination except that he was quite drowsy. Etiology was unclear. There was no evidence of a stroke or focal lesion. Differential diagnosis would include metabolic or toxic encephalopathy or seizure disorder. I would also recommend an EEG to rule out that possibility. Procedures Date of Service Date of Service: 11/19/20
--- NOTE | 2020-11-19 12:06 | HO.PM.IMPN ---
Subjective Subjective Date of Service: 11/19/20 Interval History: the patient was seen and evaluated this morning Sitting in his chair, complaining of shaking episode in his arms and slurred speech sometimes Denies any fever, chills or shortness of breath No reported other overnight events. Systemic review: No fever, chills or focal weakness No chest pain, palpitation No shortness of breath or coughing No abdominal pain, nausea or vomiting No urinary symptoms No any rash or wounds Physical Exam Vital Signs: Vital Signs: Last Vital Signs Temp 97.4 F 11/19/20 11:10 Pulse 76 11/19/20 11:10 Resp 20 11/19/20 11:10 BP 136/95 H 11/19/20 11:10 Pulse Ox 98 11/19/20 11:10 Body Mass Index 30.8 Const: Other: Constitutional : Alert, oriented to self and place, has some stuttering but no clear aphasia Neck : Normal inspection, Supple Cardiovascular : RRR, S1 S2, no lower extremity edema Respiratory : Good bilateral air entry, no crackles, wheezes or rhonchi Gastrointestinal: soft, lax, Normal bowel sounds, Non tender Skin : Warm, Dry Neurological : Alert & oriented x2, No focal deficit, no aphasia, mild bilateral intention tremors Objective Data Current Medications Generic Name Dose Route Start Last Admin Trade Name Freq PRN Reason Stop Dose Admin Acetaminophen 650 mg 11/18/20 23:22 Acetaminophen 325 Mg Tablet PO Q6H PRN Pain, Mild (Pain Scale 1-3) Atorvastatin Calcium 10 mg 11/19/20 09:00 11/19/20 09:02 Atorvastatin Calcium 10 Mg Tablet PO 10 mg DAILY TAI Administration Benztropine Mesylate 1 mg 11/18/20 23:22 11/19/20 08:58 Benztropine Mesylate 1 Mg Tablet PO 1 mg BID TAI Administration Chlorpromazine HCl 100 mg 11/18/20 23:22 11/19/20 00:34 Chlorpromazine Hcl 100 Mg Tablet PO 100 mg BEDTIME TAI Administration Chlorpromazine HCl 100 - 200 mg 11/18/20 23:22 Chlorpromazine Hcl 100 Mg Tablet PO BID PRN Agitation Clopidogrel Bisulfate 75 mg 11/19/20 09:00 11/19/20 08:59 Clopidogrel Bisulfate 75 Mg Tablet PO 75 mg DAILY TAI Administration Cyclobenzaprine HCl 10 mg 11/18/20 23:22 Cyclobenzaprine Hcl 10 Mg Tablet PO BEDTIME PRN muscle spasm Dextrose 25 gm 11/18/20 23:22 Dextrose 50 % 25 Gm/50 Ml Vial IVPUSH Q15M PRN per Hypoglycemia Standing Ord. Protocol Divalproex Sodium 250 mg 11/18/20 23:22 11/19/20 00:35 Divalproex Sodium Er 250 Mg Tab.Er.24h PO 250 mg BEDTIME TAI Administration Divalproex Sodium 500 mg 11/19/20 09:00 11/19/20 08:59 Divalproex Sodium Er 500 Mg Tab.Er.24h PO 500 mg DAILY TAI Administration Divalproex Sodium 1,000 mg 11/18/20 23:22 11/19/20 00:35 Divalproex Sodium Er 500 Mg Tab.Er.24h PO 1,000 mg BEDTIME TAI Administration Docusate Sodium 100 mg 11/18/20 23:22 Docusate Sodium 100 Mg Capsule PO DAILY PRN Constipation Enoxaparin Sodium 40 mg 11/19/20 09:00 11/19/20 08:57 Enoxaparin Sodium 40 Mg/0.4 Ml Syringe SUBCUT 40 mg Q24H TAI Administration Famotidine 40 mg 11/18/20 23:22 11/19/20 08:58 Famotidine 20 Mg Tablet PO 40 mg BID TAI Administration Glucose 15 gm 11/18/20 23:22 Glucose Gel 15 Gm Gel..Gram. PO Q15M PRN per Hypoglycemia Standing Ord. Protocol Hydroxyzine HCl 50 mg 11/18/20 23:22 11/19/20 08:59 Hydroxyzine Hcl 50 Mg Tablet PO 50 mg TID TAI Administration Insulin Human Lispro 0 unit 11/19/20 07:30 11/19/20 11:54 Insulin Lispro 100 Unit/Ml 3 Ml Vial SUBCUT Not Given QIDACHS [facility] Protocol Lisinopril 5 mg 11/19/20 09:00 11/19/20 08:59 Lisinopril 5 Mg Tablet PO 5 mg DAILY TAI Administration Protocol Lorazepam 1 mg 11/19/20 08:48 11/19/20 09:45 Lorazepam 2 Mg/Ml Vial IVPUSH 1 mg ONCE PRN Administration anxiety/restlessness Ondansetron HCl 4 mg 11/18/20 23:22 Ondansetron Hcl 4 Mg/2 Ml Vial IVPUSH Q8H PRN Nausea and Vomiting Pharmacy Consult 1 each 11/18/20 14:57 Consult Rx Perform Med Rec MISCELLANE ONCE PRN Consult order Propranolol HCl 60 mg 11/18/20 23:22 11/19/20 09:01 Propranolol Hcl 20 Mg Tablet PO 60 mg BID TAI Administration Protocol Topiramate 50 mg 11/19/20 09:00 11/19/20 08:58 Topiramate 25 Mg Tablet PO 50 mg DAILY TAI Administration Labs CBC & Chem 7: 11/19/20 05:15 11/19/20 05:15 Labs: Laboratory Results - last 24 hr 11/18/20 11/18/20 11/18/20 14:57 15:56 15:56 MCV 86.4 MCH 29.9 MCHC 34.6 RDW 13.6 Plt Count 137 L MPV 9.0 L Immature Gran % (Auto) 0.2 Neut % (Auto) 37.9 L Lymph % (Auto) 45.3 H [place] % (Auto) 15.3 H Eos % (Auto) 0.9 Baso % (Auto) 0.4 Lymph # (Auto) 2.1 [place] # (Auto) 0.7 Eos # (Auto) 0.0 Baso # (Auto) 0.0 Abs Immat Gran (auto) 0.01 Absolute Neuts (auto) 1.8 L Absolute Nucleated RBC 0.000 Nucleated RBC % (auto) 0.0 PT INR APTT Anion Gap 12 Estim Creat Clear Calc 94.7 Estimated GFR > 60 POC Glucose 143 H Random Glucose 124 H Calcium 9.2 Magnesium Total Bilirubin Direct Bilirubin AST ALT Alkaline Phosphatase Troponin I High Sens Total Protein Albumin Triglycerides Cholesterol LDL Cholesterol, Calc HDL Cholesterol TSH Urine Color Urine Appearance Urine pH Ur Specific [place] Urine Protein Urine Glucose (UA) Urine Ketones Urine Blood Urine Nitrite Ur Leukocyte Esterase Urine Opiates Screen Urine Fentanyl Screen Ur Barbiturates Screen Valproic Acid Ur Phencyclidine Scrn Ur Amphetamines Screen U Benzodiazepines Scrn Urine Cocaine Screen U Marijuana (THC) Screen Ethyl Alcohol COVID-19 ([facility]) COVID-19 Clin Com 11/18/20 11/18/20 11/18/20 15:56 15:56 15:56 MCV MCH MCHC RDW Plt Count MPV Immature Gran % (Auto) Neut % (Auto) Lymph % (Auto) [place] % (Auto) Eos % (Auto) Baso % (Auto) Lymph # (Auto) [place] # (Auto) Eos # (Auto) Baso # (Auto) Abs Immat Gran (auto) Absolute Neuts (auto) Absolute Nucleated RBC Nucleated RBC % (auto) PT 12.8 INR 1.1 APTT 42.5 H Anion Gap Estim Creat Clear Calc Estimated GFR POC Glucose Random Glucose Calcium Magnesium 2.1 Total Bilirubin 0.8 Direct Bilirubin 0.3 AST 33 ALT 36 Alkaline Phosphatase 50 Troponin I High Sens Total Protein 6.9 Albumin 4.4 Triglycerides Cholesterol LDL Cholesterol, Calc HDL Cholesterol TSH Urine Color Urine Appearance Urine pH Ur Specific [place] Urine Protein Urine Glucose (UA) Urine Ketones Urine Blood Urine Nitrite Ur Leukocyte Esterase Urine Opiates Screen Urine Fentanyl Screen Ur Barbiturates Screen Valproic Acid Ur Phencyclidine Scrn Ur Amphetamines Screen U Benzodiazepines Scrn Urine Cocaine Screen U Marijuana (THC) Screen Ethyl Alcohol COVID-19 ([facility]) Negative COVID-19 Clin Com See Note 11/18/20 11/18/20 11/18/20 15:56 15:56 15:56 MCV MCH MCHC RDW Plt Count MPV Immature Gran % (Auto) Neut % (Auto) Lymph % (Auto) [place] % (Auto) Eos % (Auto) Baso % (Auto) Lymph # (Auto) [place] # (Auto) Eos # (Auto) Baso # (Auto) Abs Immat Gran (auto) Absolute Neuts (auto) Absolute Nucleated RBC Nucleated RBC % (auto) PT INR APTT Anion Gap Estim Creat Clear Calc Estimated GFR POC Glucose Random Glucose Calcium Magnesium Total Bilirubin Direct Bilirubin AST ALT Alkaline Phosphatase Troponin I High Sens < 3.5 Total Protein Albumin Triglycerides Cholesterol LDL Cholesterol, Calc HDL Cholesterol TSH 2.26 Urine Color Urine Appearance Urine pH Ur Specific [place] Urine Protein Urine Glucose (UA) Urine Ketones Urine Blood Urine Nitrite Ur Leukocyte Esterase Urine Opiates Screen Urine Fentanyl Screen Ur Barbiturates Screen Valproic Acid 117.1 H* Ur Phencyclidine Scrn Ur Amphetamines Screen U Benzodiazepines Scrn Urine Cocaine Screen U Marijuana (THC) Screen Ethyl Alcohol < 10 COVID-19 ([facility]) COVID-19 Clin Com 11/18/20 11/18/20 11/19/20 17:48 17:48 05:15 MCV 87.7 MCH 29.4 MCHC 33.5 RDW 13.6 Plt Count 141 L MPV 9.5 Immature Gran % (Auto) 0.3 Neut % (Auto) 34.5 L Lymph % (Auto) 50.1 H [place] % (Auto) 13.6 H Eos % (Auto) 1.2 Baso % (Auto) 0.3 Lymph # (Auto) 3.4 [place] # (Auto) 0.9 Eos # (Auto) 0.1 Baso # (Auto) 0.0 Abs Immat Gran (auto) 0.02 Absolute Neuts (auto) 2.4 Absolute Nucleated RBC 0.000 Nucleated RBC % (auto) 0.0 PT INR APTT Anion Gap Estim Creat Clear Calc Estimated GFR POC Glucose Random Glucose Calcium Magnesium Total Bilirubin Direct Bilirubin AST ALT Alkaline Phosphatase Troponin I High Sens Total Protein Albumin Triglycerides Cholesterol LDL Cholesterol, Calc HDL Cholesterol TSH Urine Color YELLOW Urine Appearance HAZY Urine pH 6.5 Ur Specific [place] 1.010 Urine Protein NEG Urine Glucose (UA) NEG Urine Ketones NEG Urine Blood NEG Urine Nitrite NEG Ur Leukocyte Esterase NEG Urine Opiates Screen Not Detected Urine Fentanyl Screen Not Detected Ur Barbiturates Screen Not Detected Valproic Acid Ur Phencyclidine Scrn Not Detected Ur Amphetamines Screen Not Detected U Benzodiazepines Scrn Not Detected Urine Cocaine Screen Not Detected U Marijuana (THC) Screen Not Detected Ethyl Alcohol COVID-19 ([facility]) COVID-19 Clin Com 11/19/20 11/19/20 11/19/20 05:15 07:25 11:10 MCV MCH MCHC RDW Plt Count MPV Immature Gran % (Auto) Neut % (Auto) Lymph % (Auto) [place] % (Auto) Eos % (Auto) Baso % (Auto) Lymph # (Auto) [place] # (Auto) Eos # (Auto) Baso # (Auto) Abs Immat Gran (auto) Absolute Neuts (auto) Absolute Nucleated RBC Nucleated RBC % (auto) PT INR APTT Anion Gap 12 Estim Creat Clear Calc 94.2 Estimated GFR > 60 POC Glucose 137 H 137 H Random Glucose 127 H Calcium 9.4 Magnesium Total Bilirubin Direct Bilirubin AST ALT Alkaline Phosphatase Troponin I High Sens Total Protein Albumin Triglycerides 126 Cholesterol 126 LDL Cholesterol, Calc 67 HDL Cholesterol 34 TSH Urine Color Urine Appearance Urine pH Ur Specific [place] Urine Protein Urine Glucose (UA) Urine Ketones Urine Blood Urine Nitrite Ur Leukocyte Esterase Urine Opiates Screen Urine Fentanyl Screen Ur Barbiturates Screen Valproic Acid Ur Phencyclidine Scrn Ur Amphetamines Screen U Benzodiazepines Scrn Urine Cocaine Screen U Marijuana (THC) Screen Ethyl Alcohol COVID-19 ([facility]) COVID-19 Clin Com Assessment and Plan (1) Encephalopathy: Status: Acute (2) Weakness: Status: Acute Assessment and Plan: This is a 60-year-old male with past medical history of cognitive developmental delay, hypertension, diabetes who presents to the hospital with complaints of weakness in possible source speech. Unknown last well known time # metabolic encephalopathy Could be secondary to seizure activity or transient encephalopathy No residual weakness noted on exam MRI head, CT angiogram head and neck and head CT head negative Neurology input appreciated, check EEG continue statin Received Plavix # seizure disorder continue Depakote Pending EEG # hypertension continue lisinopril and propranolol # diabetes not on any anti hyperglycemics low-dose sliding scale insulin diabetic diet DVT prophylaxis Lovenox Quality Stroke Does the patient have a stroke diagnosis?: No VTE Prior VTE?: No VTE Risk Level:: Medical - moderate - high VTE Device Contraindication: Treatment Not Indicated VTE Drug Contraindication: N/A - Med Ordered
[2020-11-19 16:18] LABS: Glucose, Whole Blood 134 mg/dL (60-115)
[2020-11-19 20:36] LABS: Glucose, Whole Blood 139 mg/dL (60-115)
[2020-11-20] VITALS (8 sets, daily range): BP systolic 104–120; BP diastolic 71–88; PULSE 62–88; RESP 15–19; TEMP 36.1–37.1; O2SAT 96–99
[2020-11-20 07:26] LABS: Glucose, Whole Blood 129 mg/dL (60-115)
[2020-11-20] MEDS: Atorvastatin Calcium 10 MG TABLET PO (08:03)
[2020-11-20] MEDS: Benztropine Mesylate 1 MG TABLET PO ×2 (08:03→21:18)
[2020-11-20] MEDS: Propranolol HCL 20 MG TABLET 60 MG PO ×2 (08:07→21:17)
[2020-11-20] MEDS: hydrOXYzine HCL 50 MG TABLET PO ×3 (08:07→21:17)
[2020-11-20] MEDS: Enoxaparin Sodium 40 MG/0.4 ML SYRINGE SUBCUT (08:07)
[2020-11-20] MEDS: Famotidine 20 MG TABLET 40 MG PO ×2 (08:08→21:18)
[2020-11-20] MEDS: lisinopriL 5 MG TABLET PO (08:08)
[2020-11-20] MEDS: Topiramate 25 MG TABLET 50 MG PO (08:09)
[2020-11-20] MEDS: Divalproex Sodium ER 500 MG TAB.ER.24H PO (08:09)
[2020-11-20 09:30] LABS: Ammonia 59 umol/L (13-55)
[2020-11-20 09:54] LABS: Valproate 128.4 mcg/mL (50.0-100.0)
[2020-11-20 10:01] LABS: Alanine Aminotransferase 38 U/L (0-40); Albumin Level 4.4 g/dL (3.5-5.0); Alkaline Phosphatase 47 U/L (39-117); Aspartate Amino Transferase 27 U/L (5-37); Bilirubin Direct 0.3 mg/dL (0.0-0.5); Bilirubin Total 0.6 mg/dL (0.0-1.0)
[2020-11-20] MEDS: Lactulose 20 GM/30 ML SOLUTION PO (10:50)
--- NOTE | 2020-11-20 11:13 | PM.NEUROCN ---
History of Present Illness Data of Consult Service Date: 11/20/20 Primary Care Provider: Unknown Physician HPI Reason for consult: Encephalopathy 60 years old man who was brought to hospital with change in mental status. I saw him yesterday. [facility] Past Medical History Medical History Bipolar disorder Cognitive developmental delay Diabetes HTN (hypertension) Social History Social History Household Members: None Housing: Apartment Do you presently have visiting nurse or other home services: Yes Patient Tobacco Use Status: Never used Tobacco Use of substances other than those prescribed or required for medical reasons: No Currently Displaying Signs/Symptoms of Drug Intoxication Withdrawal: No Have you been hit, kicked, punched, or otherwise hurt by someone within the past year? If so, by whom?: No Do you feel safe in your current relationship?: No Is there a partner from a previous relationship who is making you feel unsafe now?: No Are you made to feel afraid or neglected: No Advance Directives: No Advance Directives Information Provided: No Do you have thoughts of harming others: None Do you have a plan to hurt others: No Plan Recently lost weight without trying: No How much weight loss: Not applicable Eating poorly because of decreased appetite: No Nutrition screen score: 0 Nutrition Risks: No Nutritional Risk service: No Current occupational status: disabled Meds Allergies Allergy/AdvReac Type Severity Reaction Status Date / Time aspirin [ASPIRIN] Allergy Unknown NOSE BLEEDS Verified 11/18/20 14:53 haloperidol [From HALDOL] Allergy Unknown EYES ROLL Verified 11/18/20 14:53 ibuprofen [IBUPROFEN] Allergy Unknown NOSE BLEEDS Verified 11/18/20 14:53 lactose [LACTOSE] Allergy Unknown DIARRHEA Verified 11/18/20 14:53 Penicillins [PENICILLINS] Allergy Unknown NAUSEA Verified 11/18/20 14:53 pineapple [PINEAPPLE] Allergy Unknown ITCHING,LISETH Verified 11/18/20 14:53 H dairy Allergy Unknown Unknown Uncoded 11/18/20 14:53 pineapple Allergy Unknown Unknown Uncoded 11/18/20 14:53 SEASONAL ALLERGIES Allergy Unknown SNEEZING,FACE Uncoded 12/11/19 16:07 SWELLING Active Medications: Current Medications Generic Name Dose Route Start Last Admin Trade Name Freq PRN Reason Stop Dose Admin Acetaminophen 650 mg 11/18/20 23:22 Acetaminophen 325 Mg Tablet PO Q6H PRN Pain, Mild (Pain Scale 1-3) Atorvastatin Calcium 10 mg 11/19/20 09:00 11/20/20 08:03 Atorvastatin Calcium 10 Mg Tablet PO 10 mg DAILY TAI Administration Benztropine Mesylate 1 mg 11/18/20 23:22 11/20/20 08:03 Benztropine Mesylate 1 Mg Tablet PO 1 mg BID TAI Administration Chlorpromazine HCl 100 mg 11/18/20 23:22 11/19/20 21:43 Chlorpromazine Hcl 100 Mg Tablet PO 100 mg BEDTIME TAI Administration Chlorpromazine HCl 100 - 200 mg 11/18/20 23:22 Chlorpromazine Hcl 100 Mg Tablet PO BID PRN Agitation Cyclobenzaprine HCl 10 mg 11/18/20 23:22 Cyclobenzaprine Hcl 10 Mg Tablet PO BEDTIME PRN muscle spasm Dextrose 25 gm 11/18/20 23:22 Dextrose 50 % 25 Gm/50 Ml Vial IVPUSH Q15M PRN per Hypoglycemia Standing Ord. Protocol Divalproex Sodium 500 mg 11/19/20 09:00 11/20/20 08:09 Divalproex Sodium Er 500 Mg Tab.Er.24h PO 500 mg DAILY TAI Administration Divalproex Sodium 1,000 mg 11/18/20 23:22 11/19/20 21:44 Divalproex Sodium Er 500 Mg Tab.Er.24h PO 1,000 mg BEDTIME TAI Administration Docusate Sodium 100 mg 11/18/20 23:22 Docusate Sodium 100 Mg Capsule PO DAILY PRN Constipation Enoxaparin Sodium 40 mg 11/19/20 09:00 11/20/20 08:07 Enoxaparin Sodium 40 Mg/0.4 Ml Syringe SUBCUT 40 mg Q24H TAI Administration Famotidine 40 mg 11/18/20 23:22 11/20/20 08:08 Famotidine 20 Mg Tablet PO 40 mg BID TAI Administration Glucose 15 gm 11/18/20 23:22 Glucose Gel 15 Gm Gel..Gram. PO Q15M PRN per Hypoglycemia Standing Ord. Protocol Hydroxyzine HCl 50 mg 11/18/20 23:22 11/20/20 08:07 Hydroxyzine Hcl 50 Mg Tablet PO 50 mg TID TAI Administration Insulin Human Lispro 0 unit 11/19/20 07:30 11/20/20 07:59 Insulin Lispro 100 Unit/Ml 3 Ml Vial SUBCUT Not Given [facility]HS [facility] Protocol Lisinopril 5 mg 11/19/20 09:00 11/20/20 08:08 Lisinopril 5 Mg Tablet PO 5 mg DAILY TAI Administration Protocol Lorazepam 1 mg 11/19/20 08:48 11/19/20 09:45 Lorazepam 2 Mg/Ml Vial IVPUSH 1 mg ONCE PRN Administration anxiety/restlessness Ondansetron HCl 4 mg 11/18/20 23:22 Ondansetron Hcl 4 Mg/2 Ml Vial IVPUSH Q8H PRN Nausea and Vomiting Pharmacy Consult 1 each 11/18/20 14:57 Consult Rx Perform Med Rec MISCELLANE ONCE PRN Consult order Propranolol HCl 60 mg 11/18/20 23:22 11/20/20 08:07 Propranolol Hcl 20 Mg Tablet PO 60 mg BID TAI Administration Protocol Topiramate 50 mg 11/19/20 09:00 11/20/20 08:09 Topiramate 25 Mg Tablet PO 50 mg DAILY TAI Administration Home Medications Medication Instructions Recorded Confirmed Last Taken Type atorvastatin 10 mg tablet 1 tab PO DAILY 11/18/20 11/18/20 Unknown History benztropine 1 mg tablet 1 tab PO BID 11/18/20 11/18/20 Unknown History chlorpromazine 100 mg tablet 100 - 200 mg PO BID PRN 11/18/20 11/18/20 Unknown History chlorpromazine 100 mg tablet 100 mg PO BEDTIME 11/18/20 11/18/20 Unknown History cyclobenzaprine 10 mg tablet 1 tab PO BEDTIME PRN 11/18/20 11/18/20 Unknown History divalproex 250 mg tablet,extended 1 tab PO QPM 11/18/20 11/18/20 Unknown History release 24 hr divalproex 500 mg tablet,extended 1,000 mg PO QPM 11/18/20 11/18/20 Unknown History release 24 hr divalproex 500 mg tablet,extended 500 mg PO DAILY 11/18/20 11/18/20 Unknown History release 24 hr famotidine 40 mg tablet 1 tab PO BID 11/18/20 11/18/20 Unknown History hydroxyzine HCl 50 mg tablet 1 tab PO TID 11/18/20 11/18/20 Unknown History lisinopril 5 mg tablet 1 tab PO DAILY 11/18/20 11/18/20 Unknown History propranolol 60 mg tablet 1 tab PO BID 11/18/20 11/18/20 Unknown History topiramate 50 mg tablet 1 tab PO DAILY 11/18/20 11/18/20 Unknown History Physical Exam Vital Signs: Vital Signs: Last Vital Signs Temp 97.9 F 11/20/20 08:00 Pulse 87 11/20/20 08:08 Resp 18 11/20/20 08:00 BP 120/83 11/20/20 08:00 Pulse Ox 96 11/20/20 08:00 Body Mass Index 30.8 Neuro: Other: His exam today revealed that he was much more alert and awake made eye contact answer simple questions told me that he lived in [place] and did not drive. He was following commands. There was no focal weakness. Results Labs CBC & Chem 7: 11/19/20 05:15 11/19/20 05:15 Labs: Liver Function 11/20/20 Range/Units 08:36 Total Bilirubin 0.6 (0.0-1.0) mg/dL Direct Bilirubin 0.3 (0.0-0.5) mg/dL AST 27 (5-37) U/L ALT 38 (0-40) U/L Alkaline Phosphatase 47 (39-117) U/L Albumin 4.4 (3.5-5.0) g/dL Assessment and Plan (1) Encephalopathy: Status: Acute 60 years old man with metabolic toxic encephalopathy. It was probably due to high level of valproic acid level and high ammonia. My recommendation at this time is to discontinue Depakote. This medicine can result in obesity, which he has, and can also result in liver problems as he has developed revealing high ammonia. I would recommend asking psychiatric to consider an alternate mood stabilizer. There was no evidence of epilepsy. Procedures Date of Service Date of Service: 11/20/20
--- NOTE | 2020-11-20 11:16 | P.PNIM_ITS ---
Subjective Subjective Date of Service: 11/20/20 Interval History: the patient was seen and evaluated this morning Laying in bed, still feeling little bit with mild confusion lethargy Denies any fever, chills or shortness of breath No reported other overnight events. Systemic review: No fever, chills but repeat generalized weakness and feeling off No chest pain, palpitation No shortness of breath or coughing No abdominal pain, nausea or vomiting No urinary symptoms No any rash or wounds Physical Exam Vital Signs: Vital Signs: Last Vital Signs Temp 97.9 F 11/20/20 08:00 Pulse 87 11/20/20 08:08 Resp 18 11/20/20 08:00 BP 120/83 11/20/20 08:00 Pulse Ox 96 11/20/20 08:00 Body Mass Index 30.8 Const: Other: Constitutional : Alert, oriented to self and place, statin has some stuttering and looks general weaker Neck : Normal inspection, Supple Cardiovascular : RRR, S1 S2, no lower extremity edema Respiratory : Good bilateral air entry, no crackles, wheezes or rhonchi Gastrointestinal: soft, lax, Normal bowel sounds, Non tender Skin : Warm, Dry Neurological : Alert & oriented x2, No focal deficit, no aphasia, mild bilateral intention tremors Objective Data Current Medications Generic Name Dose Route Start Last Admin Trade Name Freq PRN Reason Stop Dose Admin Acetaminophen 650 mg 11/18/20 23:22 Acetaminophen 325 Mg Tablet PO Q6H PRN Pain, Mild (Pain Scale 1-3) Atorvastatin Calcium 10 mg 11/19/20 09:00 11/20/20 08:03 Atorvastatin Calcium 10 Mg Tablet PO 10 mg DAILY TAI Administration Benztropine Mesylate 1 mg 11/18/20 23:22 11/20/20 08:03 Benztropine Mesylate 1 Mg Tablet PO 1 mg BID TAI Administration Chlorpromazine HCl 100 mg 11/18/20 23:22 11/19/20 21:43 Chlorpromazine Hcl 100 Mg Tablet PO 100 mg BEDTIME TAI Administration Chlorpromazine HCl 100 - 200 mg 11/18/20 23:22 Chlorpromazine Hcl 100 Mg Tablet PO BID PRN Agitation Cyclobenzaprine HCl 10 mg 11/18/20 23:22 Cyclobenzaprine Hcl 10 Mg Tablet PO BEDTIME PRN muscle spasm Dextrose 25 gm 11/18/20 23:22 Dextrose 50 % 25 Gm/50 Ml Vial IVPUSH Q15M PRN per Hypoglycemia Standing Ord. Protocol Divalproex Sodium 500 mg 11/19/20 09:00 11/20/20 08:09 Divalproex Sodium Er 500 Mg Tab.Er.24h PO 500 mg DAILY TAI Administration Divalproex Sodium 1,000 mg 11/18/20 23:22 11/19/20 21:44 Divalproex Sodium Er 500 Mg Tab.Er.24h PO 1,000 mg BEDTIME TAI Administration Docusate Sodium 100 mg 11/18/20 23:22 Docusate Sodium 100 Mg Capsule PO DAILY PRN Constipation Enoxaparin Sodium 40 mg 11/19/20 09:00 11/20/20 08:07 Enoxaparin Sodium 40 Mg/0.4 Ml Syringe SUBCUT 40 mg Q24H TAI Administration Famotidine 40 mg 11/18/20 23:22 11/20/20 08:08 Famotidine 20 Mg Tablet PO 40 mg BID TAI Administration Glucose 15 gm 11/18/20 23:22 Glucose Gel 15 Gm Gel..Gram. PO Q15M PRN per Hypoglycemia Standing Ord. Protocol Hydroxyzine HCl 50 mg 11/18/20 23:22 11/20/20 08:07 Hydroxyzine Hcl 50 Mg Tablet PO 50 mg TID TAI Administration Insulin Human Lispro 0 unit 11/19/20 07:30 11/20/20 07:59 Insulin Lispro 100 Unit/Ml 3 Ml Vial SUBCUT Not Given QIDAS [facility] Protocol Lisinopril 5 mg 11/19/20 09:00 11/20/20 08:08 Lisinopril 5 Mg Tablet PO 5 mg DAILY TAI Administration Protocol Lorazepam 1 mg 11/19/20 08:48 11/19/20 09:45 Lorazepam 2 Mg/Ml Vial IVPUSH 1 mg ONCE PRN Administration anxiety/restlessness Ondansetron HCl 4 mg 11/18/20 23:22 Ondansetron Hcl 4 Mg/2 Ml Vial IVPUSH Q8H PRN Nausea and Vomiting Pharmacy Consult 1 each 11/18/20 14:57 Consult Rx Perform Med Rec MISCELLANE ONCE PRN Consult order Propranolol HCl 60 mg 11/18/20 23:22 11/20/20 08:07 Propranolol Hcl 20 Mg Tablet PO 60 mg BID TAI Administration Protocol Topiramate 50 mg 11/19/20 09:00 11/20/20 08:09 Topiramate 25 Mg Tablet PO 50 mg DAILY TAI Administration Labs CBC & Chem 7: 11/19/20 05:15 11/19/20 05:15 Labs: Laboratory Results - last 24 hr 11/19/20 11/19/20 11/19/20 11:10 16:00 20:19 POC Glucose 137 H 134 H 139 H Total Bilirubin Direct Bilirubin AST ALT Alkaline Phosphatase Ammonia Total Protein Albumin Valproic Acid 11/20/20 11/20/20 11/20/20 07:10 08:36 08:36 POC Glucose 129 H Total Bilirubin 0.6 Direct Bilirubin 0.3 AST 27 ALT 38 Alkaline Phosphatase 47 Ammonia 59 H Total Protein 7.0 Albumin 4.4 Valproic Acid 128.4 H* Assessment and Plan (1) Encephalopathy: Status: Acute (2) Weakness: Status: Acute Assessment and Plan: This is a 60-year-old male with past medical history of cognitive developmental delay, hypertension, diabetes who presents to the hospital with complaints of weakness in possible source speech. Unknown last well known time # metabolic encephalopathy # 2/2 Valproate toxicity Valproic level of 128 this morning with elevated ammonia MRI head, CT angiogram head and neck and head CT head negative Neurology input appreciated, to hold valproic acid until levels reach below 80 then start 500 bedtime continue statin DC Plavix # hypertension continue lisinopril and propranolol # diabetes not on any anti hyperglycemics low-dose sliding scale insulin diabetic diet DVT prophylaxis Lovenox Quality Stroke Does the patient have a stroke diagnosis?: No VTE Prior VTE?: No VTE Risk Level:: Medical - moderate - high VTE Device Contraindication: Treatment Not Indicated VTE Drug Contraindication: N/A - Med Ordered
[2020-11-20 11:18] LABS: Glucose, Whole Blood 116 mg/dL (60-115)
[2020-11-20] MEDS: Tamsulosin HCL 0.4 MG CAPSULE PO (14:20)
[2020-11-20 16:32] LABS: Glucose, Whole Blood 134 mg/dL (60-115)
[2020-11-20 20:51] LABS: Glucose, Whole Blood 128 mg/dL (60-115)
[2020-11-20] MEDS: chlorproMAZINE HCl 100 MG TABLET PO (21:18)
[2020-11-21] VITALS (8 sets, daily range): BP systolic 102–139; BP diastolic 58–88; PULSE 69–79; RESP 18; TEMP 36–36.9; O2SAT 94–99
[2020-11-21 07:41] LABS: Glucose, Whole Blood 126 mg/dL (60-115)
[2020-11-21 08:06] LABS: Valproate 83.9 mcg/mL (50.0-100.0)
[2020-11-21 08:07] LABS: Anion Gap 11 (12-20); Blood Urea Nitrogen 15 mg/dL (9-16); Calcium 8.9 mg/dL (8.4-10.2); Carbon Dioxide 27 mmol/L (22-29); Chloride 105 mmol/L (96-108); Creatinine Clr Calc Pharmacy 98.3; Estimated Glomerular Filt Rate > 60; Glucose Random 117 mg/dL (60-115); Potassium 3.8 mmol/L (3.3-5.1); Sodium 139 mmol/L (135-145)
[2020-11-21 08:10] LABS: Ammonia 47 umol/L (13-55)
[2020-11-21] MEDS: Atorvastatin Calcium 10 MG TABLET PO (08:36)
[2020-11-21] MEDS: Tamsulosin HCL 0.4 MG CAPSULE PO (08:36)
[2020-11-21] MEDS: Famotidine 20 MG TABLET 40 MG PO ×2 (08:36→20:58)
[2020-11-21] MEDS: hydrOXYzine HCL 50 MG TABLET PO ×3 (08:36→20:58)
[2020-11-21] MEDS: Propranolol HCL 20 MG TABLET 60 MG PO ×2 (08:36→20:58)
[2020-11-21] MEDS: Topiramate 25 MG TABLET 50 MG PO (08:36)
[2020-11-21] MEDS: lisinopriL 5 MG TABLET PO (08:37)
[2020-11-21] MEDS: Benztropine Mesylate 1 MG TABLET PO ×2 (08:37→20:58)
[2020-11-21] MEDS: Enoxaparin Sodium 40 MG/0.4 ML SYRINGE SUBCUT (08:37)
[2020-11-21 11:26] LABS: Glucose, Whole Blood 185 mg/dL (60-115)
[2020-11-21] MEDS: Insulin Lispro 100 UNIT/ML 3 ML VIAL SUBCUT (12:18)
--- NOTE | 2020-11-21 12:37 | PC.NURSE ---
Catheter removed at 1230 without issue. Patient tolerated well. Tube intact. Urinal provided and instructed on use. Will cont to monitor and assess
--- NOTE | 2020-11-21 13:41 | P.PNIM_ITS ---
Subjective Subjective Date of Service: 11/21/20 Interval History: the patient was seen and evaluated this morning Laying in bed, feels better today as his speech is more clear Denies any fever, chills or shortness of breath No reported other overnight events. Systemic review: No fever, chills No chest pain, palpitation No shortness of breath or coughing No abdominal pain, nausea or vomiting No urinary symptoms No any rash or wounds Physical Exam Vital Signs: Vital Signs: Last Vital Signs Temp 97.6 F 11/21/20 10:57 Pulse 75 11/21/20 10:57 Resp 18 11/21/20 10:57 BP 128/82 11/21/20 10:57 Pulse Ox 96 11/21/20 10:57 Body Mass Index 30.8 Const: Other: Constitutional : Alert, oriented to self and place, his speech is better Neck : Normal inspection, Supple Cardiovascular : RRR, S1 S2, no lower extremity edema Respiratory : Good bilateral air entry, no crackles, wheezes or rhonchi Gastrointestinal: soft, lax, Normal bowel sounds, Non tender Skin : Warm, Dry Neurological : Alert & oriented x2, No focal deficit, no aphasia, mild bilateral intention tremors Objective Data Current Medications Generic Name Dose Route Start Last Admin Trade Name Freq PRN Reason Stop Dose Admin Acetaminophen 650 mg 11/18/20 23:22 Acetaminophen 325 Mg Tablet PO Q6H PRN Pain, Mild (Pain Scale 1-3) Atorvastatin Calcium 10 mg 11/19/20 09:00 11/21/20 08:36 Atorvastatin Calcium 10 Mg Tablet PO 10 mg DAILY TAI Administration Benztropine Mesylate 1 mg 11/18/20 23:22 11/21/20 08:37 Benztropine Mesylate 1 Mg Tablet PO 1 mg BID TAI Administration Chlorpromazine HCl 100 mg 11/18/20 23:22 11/20/20 21:18 Chlorpromazine Hcl 100 Mg Tablet PO 100 mg BEDTIME TAI Administration Chlorpromazine HCl 100 - 200 mg 11/18/20 23:22 Chlorpromazine Hcl 100 Mg Tablet PO BID PRN Agitation Cyclobenzaprine HCl 10 mg 11/18/20 23:22 Cyclobenzaprine Hcl 10 Mg Tablet PO BEDTIME PRN muscle spasm Dextrose 25 gm 11/18/20 23:22 Dextrose 50 % 25 Gm/50 Ml Vial IVPUSH Q15M PRN per Hypoglycemia Standing Ord. Protocol Docusate Sodium 100 mg 11/18/20 23:22 Docusate Sodium 100 Mg Capsule PO DAILY PRN Constipation Enoxaparin Sodium 40 mg 11/19/20 09:00 11/21/20 08:37 Enoxaparin Sodium 40 Mg/0.4 Ml Syringe SUBCUT 40 mg Q24H TAI Administration Famotidine 40 mg 11/18/20 23:22 11/21/20 08:36 Famotidine 20 Mg Tablet PO 40 mg BID TAI Administration Glucose 15 gm 11/18/20 23:22 Glucose Gel 15 Gm Gel..Gram. PO Q15M PRN per Hypoglycemia Standing Ord. Protocol Hydroxyzine HCl 50 mg 11/18/20 23:22 11/21/20 08:36 Hydroxyzine Hcl 50 Mg Tablet PO 50 mg TID TAI Administration Insulin Human Lispro 0 unit 11/19/20 07:30 11/21/20 12:18 Insulin Lispro 100 Unit/Ml 3 Ml Vial SUBCUT 2 unit QIDACHS TAI Administration Protocol Lisinopril 5 mg 11/19/20 09:00 11/21/20 08:37 Lisinopril 5 Mg Tablet PO 5 mg DAILY TAI Administration Protocol Lorazepam 1 mg 11/19/20 08:48 11/19/20 09:45 Lorazepam 2 Mg/Ml Vial IVPUSH 1 mg ONCE PRN Administration anxiety/restlessness Ondansetron HCl 4 mg 11/18/20 23:22 Ondansetron Hcl 4 Mg/2 Ml Vial IVPUSH Q8H PRN Nausea and Vomiting Pharmacy Consult 1 each 11/18/20 14:57 Consult Rx Perform Med Rec MISCELLANE ONCE PRN Consult order Propranolol HCl 60 mg 11/18/20 23:22 11/21/20 08:36 Propranolol Hcl 20 Mg Tablet PO 60 mg BID TAI Administration Protocol Tamsulosin HCl 0.4 mg 11/20/20 13:50 11/21/20 08:36 Tamsulosin Hcl 0.4 Mg Capsule PO 0.4 mg DAILY TAI Administration Topiramate 50 mg 11/19/20 09:00 11/21/20 08:36 Topiramate 25 Mg Tablet PO 50 mg DAILY TAI Administration Valproic Acid 500 mg 11/21/20 21:00 Valproic Acid (As Sodium Salt) 250 Mg/5 Ml Solution PO BEDTIME [facility] Labs CBC & Chem 7: 11/19/20 05:15 11/21/20 06:33 Labs: Laboratory Results - last 24 hr 11/20/20 11/20/20 11/21/20 16:26 20:46 06:33 Anion Gap 11 L Estim Creat Clear Calc 98.3 Estimated GFR > 60 POC Glucose 134 H 128 H Random Glucose 117 H Calcium 8.9 Ammonia Valproic Acid 11/21/20 11/21/20 11/21/20 06:33 06:33 07:32 Anion Gap Estim Creat Clear Calc Estimated GFR POC Glucose 126 H Random Glucose Calcium Ammonia 47 Valproic Acid 83.9 11/21/20 10:54 Anion Gap Estim Creat Clear Calc Estimated GFR POC Glucose 185 H Random Glucose Calcium Ammonia Valproic Acid Assessment and Plan (1) Encephalopathy: Status: Acute (2) Valproic acid toxicity: Status: Acute Assessment and Plan: This is a 60-year-old male with past medical history of cognitive developmental delay, hypertension, diabetes who presents to the hospital with complaints of weakness in possible source speech. Unknown last well known time # metabolic encephalopathy # 2/2 Valproate toxicity Valproic level of improved to 83 this morning with normal level ammonia MRI head, CT angiogram head and neck and head CT head negative Neurology input appreciated, to hold valproic acid until levels reach below 80 then start 500 bedtime The patient reports that he had seizures before when he was younger and cannot remember the last time he had a seizure. Would prefer to keep him on low-dose valproate acid rather stopping his seizure medication. continue statin DC Plavix # hypertension continue lisinopril and propranolol # diabetes not on any anti hyperglycemics low-dose sliding scale insulin diabetic diet DVT prophylaxis Lovenox Quality Stroke Does the patient have a stroke diagnosis?: No VTE Prior VTE?: No VTE Risk Level:: Medical - moderate - high VTE Device Contraindication: Treatment Not Indicated VTE Drug Contraindication: N/A - Med Ordered
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
[2020-11-21 16:23] LABS: Glucose, Whole Blood 86 mg/dL (60-115)
[2020-11-21 20:08] LABS: Glucose, Whole Blood 128 mg/dL (60-115)
[2020-11-21] MEDS: OXcarbazepine 300 MG TABLET PO (20:58)
[2020-11-21] MEDS: chlorproMAZINE HCl 100 MG TABLET PO (20:58)
[2020-11-22 03:52] VITALS: BP 126/68; PULSE 60; RESP 18; TEMP 36.8; O2SAT 95
[2020-11-22 06:44] LABS: Valproate 40.3 mcg/mL (50.0-100.0)
[2020-11-22 07:20] LABS: Glucose, Whole Blood 121 mg/dL (60-115)
[2020-11-22 07:54] VITALS: BP 137/87; PULSE 67; RESP 18; TEMP 36.4; O2SAT 96
[2020-11-22 09:19] VITALS: BP 137/87; PULSE 67
[2020-11-22] MEDS: Tamsulosin HCL 0.4 MG CAPSULE PO (09:19)
[2020-11-22] MEDS: hydrOXYzine HCL 50 MG TABLET PO ×3 (09:19→20:14)
[2020-11-22] MEDS: lisinopriL 5 MG TABLET PO (09:19)
[2020-11-22] MEDS: Famotidine 20 MG TABLET 40 MG PO ×2 (09:19→20:14)
[2020-11-22] MEDS: Topiramate 25 MG TABLET 50 MG PO (09:19)
[2020-11-22] MEDS: OXcarbazepine 300 MG TABLET PO ×2 (09:19→19:55)
[2020-11-22 09:20] VITALS: BP 137/87; PULSE 67
[2020-11-22] MEDS: Atorvastatin Calcium 10 MG TABLET PO (09:20)
[2020-11-22] MEDS: Benztropine Mesylate 1 MG TABLET PO ×2 (09:20→20:14)
[2020-11-22] MEDS: Propranolol HCL 20 MG TABLET 60 MG PO ×2 (09:20→20:13)
[2020-11-22 11:00] LABS: Glucose, Whole Blood 169 mg/dL (60-115)
[2020-11-22 11:18] VITALS: BP 114/82; PULSE 80; RESP 18; TEMP 36.5; O2SAT 97
[2020-11-22] MEDS: Insulin Lispro 100 UNIT/ML 3 ML VIAL SUBCUT ×2 (11:59→16:28)
--- NOTE | 2020-11-22 12:01 | MHC.CM.PN ---
IMM 11/22/20 Male 60 DX Valproate toxicity. DP DC today with [facility] home care. The agency is trying to cover the visit for tonight. The resumption of care can not be done by an [employer]. The agency is trying to cover his visit with an RN. He needs med administration tonight. If agency is not able to resume services , dc will be held until am. CM will follow.
[2020-11-22] MEDS: LORazepam 0.5 MG TABLET 0.25 MG PO (13:37)
--- NOTE | 2020-11-22 14:06 | PM.DS ---
DS: Providers Provider Date of Service: 11/22/20 Date of admission: 11/20/20 13:45 Primary care physician: Unknown Physician Consults: 11/18/20 23:22 Consult to Neurology Routine Consulting Provider: [facility] Reason for consultation: tia vs stroke, an osteoma/exist ptosis in the inner table of the left fron Has provider been notified: No DS: Diagnosis Discharge Diagnosis (1) Valproic acid toxicity: Status: Acute (2) Encephalopathy: Status: Acute (3) Weakness: Status: Acute (4) Urine retention: Status: Acute DS: Medications Discharge Medications Home Medications: Home Medications Medication Instructions Recorded Confirmed atorvastatin 10 mg tablet 1 tab PO DAILY 11/18/20 11/18/20 benztropine 1 mg tablet 1 tab PO BID 11/18/20 11/18/20 chlorpromazine 100 mg tablet 100 - 200 mg PO BID PRN 11/18/20 11/18/20 chlorpromazine 100 mg tablet 100 mg PO BEDTIME 11/18/20 11/18/20 cyclobenzaprine 10 mg tablet 1 tab PO BEDTIME PRN 11/18/20 11/18/20 divalproex 250 mg tablet,extended 1 tab PO QPM 11/18/20 11/18/20 release 24 hr divalproex 500 mg tablet,extended 1,000 mg PO QPM 11/18/20 11/18/20 release 24 hr divalproex 500 mg tablet,extended 500 mg PO DAILY 11/18/20 11/18/20 release 24 hr famotidine 40 mg tablet 1 tab PO BID 11/18/20 11/18/20 hydroxyzine HCl 50 mg tablet 1 tab PO TID 11/18/20 11/18/20 lisinopril 5 mg tablet 1 tab PO DAILY 11/18/20 11/18/20 propranolol 60 mg tablet 1 tab PO BID 11/18/20 11/18/20 topiramate 50 mg tablet 1 tab PO DAILY 11/18/20 11/18/20 DS: Summary Hospital Course Hospital Course: Admission note HPI This is a 60-year-old male with past medical history of cognitive developmental delay, diabetes, hypertension, bipolar disorder who presents to the hospital with complaints of weakness of slurred speech.? As mentioned patient has a cognitive delay therefore his a poor historian but according to the nursing staff that checks on him at home they noticed the patient to have weakness on the right side.? Per patient he is not sure how long it has been going on possibly for a week, he is also reporting slurred speech test also been going on for a week.? Patient denies any palpitations, no chest pain, no abdominal pain nausea or vomiting, no diarrhea constipation, no shortness of breath, no urinary symptoms and no lower extremity edema.? He reports no injury to the back, no change in his vision, no headache. On arrival to the ED patient hemodynamically stable with no significant abnormal vitals Labs are significant for WBC count of 4.6, otherwise unremarkable, UA is negative, UDS is significant for an elevated valproic acid of 117.1, COVID-19 negative CTA head and neck showed no acute bleeds or territorial infarct, no masses or areas of abnormal enhancement, there is an osteoma/exist ptosis in the inner table of the left frontal bone which has increased in size compared to prior imaging.? No cervical carotid or vertebral artery stenosis, and no focal stenosis intracranially. Patient will be admitted for further evaluation Hospital course The patient was admitted for evaluation of altered mentation, slurred speech. First impression was concerning for possible stroke. CT scan, MRI were negative for any acute findings. Blood work showed elevated valproic acid level to 127. He was treated for presumed toxicity of the medication with holding it per Neurology recommendation were evaluated the patient during the hospital stay. Ammonia level was tested and was elevated at 57 as well. The patient mentation started to improve after holding the valproic acid as the numbers of the level dropped down to 80s. Neurology recommended discontinuing the valproic acid and to follow-up with psychiatry for a different medication for mood stabilizer . Evaluated by psychiatry team who recommended starting Trileptal twice daily. The patient was able to ambulate with the help of physical therapist and to be discharged home with services. Developed symptoms of retention. bladder scan showed 900cc. Zavaleta placed for 1 day as he was started on Tamsulosin. Foleys removed the next day and patient was able to pass urine with no reported difficulties. Time Spent with Patient Time attestation: Total time spent providing and/or coordinating discharge services: Discharge coordination time: Greater than 30 minutes Quality: Stroke Does the patient have a stroke diagnosis?: No Physical Exam Vital Signs: Vital Signs: Last Vital Signs Temp 97.7 F 08/30/21 11:18 Pulse 80 11/22/20 11:18 Resp 18 11/22/20 11:18 BP 114/82 11/22/20 11:18 Pulse Ox 97 11/22/20 11:18 Body Mass Index 30.8 Const: Other: Constitutional : Alert, oriented to self and place, his speech is better Neck : Normal inspection, Supple Cardiovascular : RRR, S1 S2, no lower extremity edema Respiratory : Good bilateral air entry, no crackles, wheezes or rhonchi Gastrointestinal: soft, lax, Normal bowel sounds, Non tender Skin : Warm, Dry Neurological : Alert & oriented x2, No focal deficit, no aphasia, DS: Data Data Completed and Pending Labs on day of discharge: Laboratory Results - last 24 hr 11/21/20 11/21/20 11/22/20 16:17 20:02 05:47 POC Glucose 86 128 H Valproic Acid 40.3 L 11/22/20 11/22/20 07:13 10:53 POC Glucose 121 H 169 H Valproic Acid Discharge Plan Discharge Patient Disposition: Home, Self-Care Discharge Diagnosis: Altered mentation Valproic acid toxicity Referrals: Physician,Unknown [Primary Care Provider] - 1 Week Discharge Medications: New tamsulosin 0.4 mg Capsule 0.4 mg PO DAILY Qty: 30 RF: 0 oxcarbazepine 300 mg Tablet 300 mg PO BID 30 Days Qty: 60 RF: 0 Continued cyclobenzaprine 10 mg tablet 1 tab PO BEDTIME PRN (Reason: muscle spasm) RF: 0 atorvastatin 10 mg tablet 1 tab PO DAILY RF: 0 chlorpromazine 100 mg tablet 100 mg PO BEDTIME RF: 0 famotidine 40 mg tablet 1 tab PO BID RF: 0 propranolol 60 mg tablet 1 tab PO BID RF: 0 hydroxyzine HCl 50 mg tablet 1 tab PO TID RF: 0 benztropine 1 mg tablet 1 tab PO BID RF: 0 lisinopril 5 mg tablet 1 tab PO DAILY RF: 0 topiramate 50 mg tablet 1 tab PO DAILY RF: 0 chlorpromazine 100 mg tablet 100 - 200 mg PO BID PRN (Reason: Agitation) RF: 0 Discontinued divalproex 500 mg tablet extended release 24 hr 500 mg PO DAILY RF: 0 divalproex 250 mg tablet extended release 24 hr 1 tab PO QPM RF: 0 divalproex 500 mg tablet extended release 24 hr 1,000 mg PO QPM RF: 0 Discharge Orders: Discharge Order (Routine); Ordered 11/22/20 Ordered By: Kieth Gudino Diet: advance to usual diet Activity on Discharge: As tolerated Stand Alone Forms: Patient Portal Discharge page Care Plan Goals: Read below Health Concerns: Read below Plan of Treatment: You were admitted for evaluation of altered mentation and slurred speech. blood work showed elevated level of Valproic acid. You were evaluated by neurologist who recommended to discontinue it. Evaluated by Psychiatrist who started you on Trileptal with good response. You developed urine retention which was treated with catheter and Tamsulosin usage. Assessment: Stop Valproate Start Tripleptal as prescribed To use Tamsulosin daily for urine retention.
[2020-11-22 15:32] VITALS: BP 108/67; PULSE 70; RESP 18; TEMP 36.5; O2SAT 98
[2020-11-22 16:12] LABS: Glucose, Whole Blood 161 mg/dL (60-115)
--- NOTE | 2020-11-22 18:09 | MHC.INPTTRAN ---
Pt treated for valproate toxicity. Medication changed from Depakote to Trileptal. Pt now back to baseline. No signs of toxicity at this time. Ambulating in hallway with standby assistance. A+Ox4. LSC. ABD soft and positive, passing gas and having normal BM. Catheter placed on 11/20 for urinary retention, now removed and pt voiding without issue in BR or urinal. No complaints of pain or discomfort. Diabetic diet. Blood sugars have been stable, last POC was 161, 2 units of humolog given per sliding scale.
[2020-11-22] MEDS: chlorproMAZINE HCl 100 MG TABLET PO (19:55)
[2020-11-22 20:25] LABS: Glucose, Whole Blood 136 mg/dL (60-115)
== END 2020-11-22 20:31 | disposition home or self-care (01) | DRG 93 ==
LOC: HO.ED 16:32 → HO.IMC 23:29
PROVIDERS: Emergency Medicine; Admitting Provider Internal Medicine; Emergency Provider Emergency Medicine; Visit Provider Student in an Organized Health Care Education/Training Program
DX: G92 Toxic encephalopathy (principal); G81.91 Hemiplegia, unspecified affecting right dominant side; I10 Essential (primary) hypertension; G40.909 Epilepsy, unspecified, not intractable, without status epilepticus; E11.9 Type 2 diabetes mellitus without complications; F43.10 Post-traumatic stress disorder, unspecified; T42.6X5A Adverse effect of other antiepileptic and sedative-hypnotic drugs, initial encounter; Y92.9 Unspecified place or not applicable; R33.9 Retention of urine, unspecified; F63.9 Impulse disorder, unspecified; F31.9 Bipolar disorder, unspecified; Z20.822 Contact with and (suspected) exposure to COVID-19; R29.705 NIHSS score 5; Z88.0 Allergy status to penicillin; Z88.6 Allergy status to analgesic agent; Z79.899 Other long term (current) drug therapy
CPT/HCPCS: 36415; 70450; 70496; 70498; 70551; 71045; 80048; 80061; 80076; 80164; 80307; 81003; 82077; 82140; 82947; 83735; 84443; 84484; 85025; 85610; 85730; 87635; 93005; 97163; 97166; 97535; 99219; 99285; C1758; J1650; J2060; Q9967

== ENCOUNTER 2020-12-08 22:02 | Emergency (ER) | payer MEDICARE, MEDICAID, SELFPAY ==
[2020-12-08 22:06] VITALS: BP 138/77; PULSE 85; RESP 16; TEMP 36.2; O2SAT 98; BMI 32.5
--- NOTE | 2020-12-08 23:01 | ED.GENADULT ---
HPI - General Adult General Chief complaint: General Medical Stated complaint: med refill Time Seen by Provider: 12/08/20 22:31 Source: patient and old records reviewed Limitations: no limitations History of Present Illness HPI narrative: Patient states today somehow his visiting nurse was unable to get a hold of him and he did not get his nighttime medications. He is here simply for them. He denies any new or acute complaints other than feeling anxious over the medication. No chest pain or shortness of breath. Recent hospitalization for bipolar disorder. He states the medications he is currently taking are the same as on discharging nothing is changed. Related Data Home Medications Medication Instructions Recorded Confirmed atorvastatin 10 mg tablet 1 tab PO DAILY 11/18/20 11/18/20 benztropine 1 mg tablet 1 tab PO BID 11/18/20 11/18/20 chlorpromazine 100 mg tablet 100 - 200 mg PO BID PRN 11/18/20 11/18/20 chlorpromazine 100 mg tablet 100 mg PO BEDTIME 11/18/20 11/18/20 cyclobenzaprine 10 mg tablet 1 tab PO BEDTIME PRN 11/18/20 11/18/20 famotidine 40 mg tablet 1 tab PO BID 11/18/20 11/18/20 hydroxyzine HCl 50 mg tablet 1 tab PO TID 11/18/20 11/18/20 lisinopril 5 mg tablet 1 tab PO DAILY 11/18/20 11/18/20 propranolol 60 mg tablet 1 tab PO BID 11/18/20 11/18/20 topiramate 50 mg tablet 1 tab PO DAILY 11/18/20 11/18/20 Previous Rx's Medication Instructions Recorded tamsulosin 0.4 mg capsule 0.4 mg PO DAILY #30 cap 11/21/20 oxcarbazepine 300 mg tablet 300 mg PO BID 30 Days #60 tab 11/22/20 Allergies Allergy/AdvReac Type Severity Reaction Status Date / Time aspirin [ASPIRIN] Allergy Unknown NOSE BLEEDS Verified 11/18/20 14:53 haloperidol [From HALDOL] Allergy Unknown EYES ROLL Verified 11/18/20 14:53 ibuprofen [IBUPROFEN] Allergy Unknown NOSE BLEEDS Verified 11/18/20 14:53 lactose [LACTOSE] Allergy Unknown DIARRHEA Verified 11/18/20 14:53 Penicillins [PENICILLINS] Allergy Unknown NAUSEA Verified 11/18/20 14:53 pineapple [PINEAPPLE] Allergy Unknown ITCHING,LISETH Verified 11/18/20 14:53 H dairy Allergy Unknown Unknown Uncoded 11/18/20 14:53 pineapple Allergy Unknown Unknown Uncoded 11/18/20 14:53 SEASONAL ALLERGIES Allergy Unknown SNEEZING,FACE Uncoded 12/11/19 16:07 SWELLING Review of Systems Constitutional: Constitutional: Reports no additional constitutional complaints, Denies fever(s) and Denies headache(s) ENT: Denies headache(s) Cardiovascular: Cardiovascular: Denies chest pain and Denies dyspnea Respiratory: Respiratory: Denies cough and Denies dyspnea Gastrointestinal: Gastrointestinal: Denies abdominal pain Musculoskeletal: Musculoskeletal: Denies no additional musculoskeletal complaints Neurologic: Denies headache(s) Psychiatric: Comments: Anxiety PMFSH Past Medical History Medical History (Updated 12/08/20 @ 23:06 by Archie Brewer MD) Bipolar disorder Cognitive developmental delay Diabetes HTN (hypertension) Impulse control disorder PTSD (post-traumatic stress disorder) Social History Social History Household Members: None Housing: Apartment Do you presently have visiting nurse or other home services: Yes Patient Tobacco Use Status: Never used Tobacco Advance Directives: No Advance Directives Information Provided: No service: No Current occupational status: disabled Physical Exam Vital Signs: Vital Signs: Last Vital Signs Temp 97.2 F 12/08/20 22:06 Pulse 85 12/08/20 22:06 Resp 16 12/08/20 22:06 BP 138/77 12/08/20 22:06 Pulse Ox 98 12/08/20 22:06 Body Mass Index 32.5 Const: Other: Awake alert no acute distress Resp: Other: Clear and equal bilaterally without wheezes rales or rhonchi Cardio: Other: Regular rate and rhythm without murmurs rubs or gallops GI: Other: Soft nontender Skin: Other: Warm pink and dry Neuro: Other: Alert and oriented x3 without focal neuro deficit Psych: Other: Anxious but otherwise no evidence of risk of harm to self or others Course Course Course Narrative: Bipolar disorder. Hypertension. Medication given. Stable for discharge home Discharge Plan Discharge Clinical Impression: Bipolar 1 disorder Patient Disposition: Home, Self-Care Instructions: Bipolar Disorder (ED) Additional Instructions: Continue current outpatient medications Prescriptions: No Action cyclobenzaprine 10 mg tablet 1 tab PO BEDTIME PRN (Reason: muscle spasm) RF: 0 atorvastatin 10 mg tablet 1 tab PO DAILY RF: 0 chlorpromazine 100 mg tablet 100 mg PO BEDTIME RF: 0 famotidine 40 mg tablet 1 tab PO BID RF: 0 propranolol 60 mg tablet 1 tab PO BID RF: 0 hydroxyzine HCl 50 mg tablet 1 tab PO TID RF: 0 benztropine 1 mg tablet 1 tab PO BID RF: 0 lisinopril 5 mg tablet 1 tab PO DAILY RF: 0 topiramate 50 mg tablet 1 tab PO DAILY RF: 0 chlorpromazine 100 mg tablet 100 - 200 mg PO BID PRN (Reason: Agitation) RF: 0 tamsulosin 0.4 mg Capsule 0.4 mg PO DAILY Qty: 30 RF: 0 oxcarbazepine 300 mg Tablet 300 mg PO BID 30 Days Qty: 60 RF: 0
[2020-12-08] MEDS: Cyclobenzaprine HCl 10 MG TABLET PO (23:19)
[2020-12-08 23:20] VITALS: BP 120/75; PULSE 75
[2020-12-08] MEDS: Benztropine Mesylate 1 MG TABLET PO (23:20)
[2020-12-08] MEDS: Propranolol HCL 20 MG TABLET 60 MG PO (23:20)
[2020-12-08] MEDS: hydrOXYzine HCL 50 MG TABLET PO (23:24)
[2020-12-08] MEDS: OXcarbazepine 300 MG TABLET PO (23:25)
[2020-12-08] MEDS: Famotidine 20 MG TABLET PO (23:25)
[2020-12-08 23:31] VITALS: BP 120/75; RESP 16
== END 2020-12-09 00:09 | disposition home or self-care (01) ==
PROVIDERS: Emergency Provider Emergency Medicine
DX: F31.9 Bipolar disorder, unspecified (principal); Z79.899 Other long term (current) drug therapy
CPT/HCPCS: 99283; 99284

== ENCOUNTER 2021-06-16 12:47 | Inpatient (IN) | payer MEDICARE, MEDICAID, SELFPAY ==
[2021-06-16] VITALS (8 sets, daily range): BP systolic 112–146; BP diastolic 62–87; PULSE 67–87; RESP 14–18; TEMP 36.3–36.9; O2SAT 96–100; BMI 24.3
--- NOTE | ~2021-06-16 | XR_ITS ---
EXAMINATION: XR LUMBOSACRAL SPINE CLINICAL INFORMATION: Fall. Pain. COMPARISON: Lumbar spine radiographs dated 03/22/2006. TECHNIQUE: Three views of the lumbosacral spine. FINDINGS: Normal vertebral body alignment. The lumbar lordosis is maintained. No acute fracture or subluxation. No loss of vertebral body height. Mild loss of intervertebral disc height at T11-T12 with anterior endplate osteophytes. Additional tiny multilevel anterior endplate osteophytes. Bilateral facet arthropathy at L4-L5 and L5-S1. Findings have increased when compared to the prior radiographs. Moderate stool burden. XR/XR lumbar spine 2-3V IMPRESSION: Mild multilevel degenerative disc disease, increased when compared to the radiographs from 2006. No acute fracture or subluxation. Moderate stool burden.
--- NOTE | ~2021-06-16 | CT_ITS ---
EXAMINATION: CT BRAIN WITHOUT CONTRAST CT CERVICAL SPINE WITHOUT CONTRAST CLINICAL INFORMATION: AMS COMPARISON: None TECHNIQUE: 5 mm thin axial and reformatted 2 mm thin sagittal and coronal images of brain were obtained. Subsequently axial 3 mm thin and reformatted 2 mm thin sagittal and coronal images of cervical spine were obtained. DLP: 1402 mGy-cm FINDINGS: BRAIN: There is no acute intra-axial, extra-axial bleed, masses or midline shift. There is no acute infarction evolution. The lateral ventricles are symmetrical in size and configuration without enlargement. The hartman to white matter differentiation maintained. Bone windows reveal no calvarial abnormality. There is no scalp soft tissue abnormality. Bilateral paranasal sinuses and mastoid air cells are well-aerated without mucoperiosteal thickening. The scalp soft tissues appear unremarkable. CERVICAL SPINE: On sagittal reconstructed images, there is maintained cervical lordosis. The vertebral heights, alignment and disc heights are normal. The craniovertebral junction and the C1-C2 alignment is normal. There is mild superior spurring at the C1-C2 alignment. There is mild left C2-C3, C3-C4 and C4-C5 facet joint arthropathy and hypertrophy. CT/CT cervical spine wo con IMPRESSION: 1. No acute intracranial process seen. 2. No acute fracture, dislocation or subluxation in the cervical spine. There are degenerative facet joint arthropathy as described above.
--- NOTE | ~2021-06-16 | CT_ITS ---
EXAMINATION: CT BRAIN WITHOUT CONTRAST CT CERVICAL SPINE WITHOUT CONTRAST CLINICAL INFORMATION: AMS COMPARISON: None TECHNIQUE: 5 mm thin axial and reformatted 2 mm thin sagittal and coronal images of brain were obtained. Subsequently axial 3 mm thin and reformatted 2 mm thin sagittal and coronal images of cervical spine were obtained. DLP: 1402 mGy-cm FINDINGS: BRAIN: There is no acute intra-axial, extra-axial bleed, masses or midline shift. There is no acute infarction evolution. The lateral ventricles are symmetrical in size and configuration without enlargement. The hartman to white matter differentiation maintained. Bone windows reveal no calvarial abnormality. There is no scalp soft tissue abnormality. Bilateral paranasal sinuses and mastoid air cells are well-aerated without mucoperiosteal thickening. The scalp soft tissues appear unremarkable. CERVICAL SPINE: On sagittal reconstructed images, there is maintained cervical lordosis. The vertebral heights, alignment and disc heights are normal. The craniovertebral junction and the C1-C2 alignment is normal. There is mild superior spurring at the C1-C2 alignment. There is mild left C2-C3, C3-C4 and C4-C5 facet joint arthropathy and hypertrophy. CT/CT head/brain wo con IMPRESSION: 1. No acute intracranial process seen. 2. No acute fracture, dislocation or subluxation in the cervical spine. There are degenerative facet joint arthropathy as described above.
--- NOTE | ~2021-06-16 | XR_ITS ---
EXAMINATION: XR CHEST CLINICAL INFORMATION: Altered mental status. COMPARISON: Chest radiograph dated 11/18/2020. TECHNIQUE: 2 views of the chest were obtained. FINDINGS: Hypoinflation of the lungs with patchy posterior left basilar atelectasis versus early infiltrate. No pleural effusion or pneumothorax. Stable cardiomediastinal silhouette. XR/XR chest 2V IMPRESSION: Hypoinflation with patchy left basilar atelectasis versus early infiltrate.
--- NOTE | ~2021-06-16 | CT_ITS ---
EXAMINATION: CT ANGIOGRAM OF THE HEAD CT ANGIOGRAM OF THE NECK CLINICAL INFORMATION: Dizziness and nystagmus. COMPARISON: CT scan of the head and cervical spine earlier 06/16/2021. MRI scan of the brain 11/19/2020. TECHNIQUE: A noncontrast CT scan of the head was obtained. Test bolus series followed by intravenous administration 70 mL of Omnipaque 350. Helical imaging was performed in the axial plane from the mediastinum to the skull vertex. The degree of stenosis is based off NASCET criteria. The data was processed at the arrt technologist workstation for generation of MIP images. Three-dimensional volume rendered reformatted images were also generated at an offline 3-D workstation. This CT examination was performed using dose optimization techniques as appropriate, variously including the following: *Automated exposure control *Adjustment of mA and/or kV according to patient size (this includes techniques or standardized protocols for targeted exams where dose is matched to indication/reason for exam; i.e. extremities or head) *Use of iterative reconstruction technique DLP: 2608 mGy-cm. FINDINGS: CT Head: There is no evidence of acute intracranial hemorrhage or territorial infarction. No abnormal mass-effect or midline shift is seen. Brothers to white matter differentiation is well preserved. No extra-axial fluid collections are identified. There is no abnormal enhancement. There is mild commensurate prominence of the ventricles and sulci. There is mineralization in the basal ganglia bilaterally. Brain parenchymal attenuation is otherwise appears unremarkable. There are no acute osseous findings. There is a small exostosis off the inner table of the left frontal bone. The soft tissues are unremarkable. The mastoid air cells and visualized portions of the paranasal sinuses are well-aerated. CTA Neck: There is a classic configuration of the aortic arch. The great vessels of the neck are patent. The common carotid arteries are patent bilaterally. The carotid bifurcations appear normal. Both cervical internal carotid arteries are patent with uniform caliber. The origins of the vertebral arteries are well-demonstrated bilaterally. The vertebral arteries are codominant and are patent throughout its cervical course extending intradurally. Nonvascular: There is a calcified 4 mm nodule in the right upper lobe (image [id number], series 10). The thyroid gland appears normal. There is no cervical lymphadenopathy. The patient is edentulous in the mandible and the maxilla. There is mild narrowing of intervertebral disc height. There are severe facet arthropathic changes on the left at C3-C4. CTA Head: In the anterior circulation, the distal internal carotid arteries within the neck appear normal. The intracranial internal carotid arteries and their bifurcations appear normal. The middle and anterior cerebral arteries bilaterally demonstrate normal caliber with no evidence of focal stenosis, aneurysm or vascular malformation. There is normal arborization of the middle cerebral artery branches. The anterior communicating artery is normal. In the posterior circulation, the right vertebral artery is dominant; the left vertebral artery ends primarily in the right. The vertebral arteries have uniform caliber. The basilar artery appears normal. The posterior cerebral arteries have normal caliber. The venous sinuses opacify normally. CT/CT angio head neck IMPRESSION: 1. There are no acute bleeds or territorial infarcts. There are no masses or areas of abnormal enhancement. There is mild diffuse volume loss. 2. There are no flow-limiting stenoses in the neck circulation. There is no significant atheromatous disease. 3. Intracranially there are no focal stenoses, aneurysms or vascular malformations. 4. There is a 4 mm nodule in the right upper lobe of the lung, which appears calcified. Various management parameters for solitary pulmonary nodules are in the literature. According to the UPDATED 2017 Fleischner Society recommendations, the advised follow-up imaging for solid nodules < 6 mm is: LOW RISK PATIENT: No routine follow-up. HIGH RISK PATIENT: Optional CT at 12 months. Reference: Guidelines for Management of Incidental Pulmonary Nodules Detected on CT Images: From the Fleischner Society 2017.
--- NOTE | 2021-06-16 13:21 | ECG_ITS ---
Test Reason : dizziness Blood Pressure : / mmHG Vent. Rate : 070 BPM Atrial Rate : 070 BPM P-R Int : 178 ms QRS Dur : 102 ms QT Int : 422 ms P-R-T Axes : 034 -05 053 degrees QTc Int : 455 ms Normal sinus rhythm Normal ECG When compared with ECG of 18-NOV-2020 15:02, Questionable change in QRS duration Referred By: Rosina Jones Electronically Signed By:WILMAN CAROLINA MD
--- NOTE | 2021-06-16 13:32 | ED.FALL ---
HPI - Fall General Chief Complaint: Fall Stated Complaint: fall Time Seen by Provider: 06/16/21 13:20 Source: patient, EMS and other (staff at [facility] ([place]), HCP Norma Zee ) Mode of arrival: EMS Limitations: altered mental status History of Present Illness HPI Narrative: 60-year-old male with past medical history of cognitive developmental delay, diabetes, hypertension, bipolar disorder here after a fall. 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 Staff is unsure if he had loss of consciousness as he was not responding to them when they called his name. While staff was on the phone with EMS the patient appeared to be more conscious. The patient tells me that he while he was walking down the stairs he started to feel dizzy. He tells me he has felt dizzy for the last 2 days. The dizziness is worsened when he opens his eyes and moves around. He denies any associated vision changes, nausea, vomiting, headache, chest pain, palpitations, shortness of breath, neck pain. Patient tells me that during the fall he landed on his lower back and is having some pain there. Staff does tell me that the patient seemed more lethargic today when they picked him up to go to breakfast. He had a similar episode to this in the past requiring admission that with the patient was noted to have an elevated ammonia and valproic acid level. Under review of medication list it seems that the patient's valproic acid was discontinued Related Data Home Medications Medication Instructions Recorded Confirmed atorvastatin 10 mg tablet 1 tab PO DAILY 11/18/20 06/16/21 benztropine 1 mg tablet 1 tab PO BID 11/18/20 06/16/21 chlorpromazine 100 mg tablet 100 - 200 mg PO BID PRN 11/18/20 06/16/21 chlorpromazine 100 mg tablet 100 mg PO BEDTIME 11/18/20 06/16/21 famotidine 40 mg tablet 1 tab PO BID 11/18/20 06/16/21 hydroxyzine HCl 50 mg tablet 1 tab PO TID PRN 11/18/20 06/16/21 lisinopril 5 mg tablet 1 tab PO DAILY 11/18/20 06/16/21 propranolol 60 mg tablet 1 tab PO BID 11/18/20 06/16/21 topiramate 50 mg tablet 1 tab PO DAILY 11/18/20 06/16/21 acetaminophen 500 mg tablet 500 mg PO Q6H PRN 06/16/21 06/16/21 albuterol sulfate 2.5 mg INHALATION Q4-6H PRN 06/16/21 06/16/21 fluticasone propionate 50 1 spray INTRANASAL BID 06/16/21 06/16/21 mcg/actuation nasal spray,suspension oxcarbazepine 600 mg tablet 600 mg PO BID 06/16/21 06/16/21 polyethylene glycol 3350 17 gram 17 g PO DAILY 06/16/21 06/16/21 oral powder packet (Miralax) trazodone 150 mg tablet 1 tab PO BEDTIME PRN 06/16/21 06/16/21 Allergies Allergy/AdvReac Type Severity Reaction Status Date / Time aspirin [ASPIRIN] Allergy Unknown NOSE BLEEDS Verified 11/18/20 14:53 haloperidol [From HALDOL] Allergy Unknown EYES ROLL Verified 11/18/20 14:53 ibuprofen [IBUPROFEN] Allergy Unknown NOSE BLEEDS Verified 11/18/20 14:53 lactose [LACTOSE] Allergy Unknown DIARRHEA Verified 11/18/20 14:53 Penicillins [PENICILLINS] Allergy Unknown NAUSEA Verified 11/18/20 14:53 pineapple [PINEAPPLE] Allergy Unknown ITCHING,LISETH Verified 11/18/20 14:53 H dairy Allergy Unknown Unknown Uncoded 11/18/20 14:53 pineapple Allergy Unknown Unknown Uncoded 11/18/20 14:53 SEASONAL ALLERGIES Allergy Unknown SNEEZING,FACE Uncoded 12/11/19 16:07 SWELLING Review of Systems Review of Systems: Yes all other systems are reviewed and are negative Constitutional: Constitutional: Reports no additional constitutional complaints, Denies body ache(s), Denies chills, Denies fever(s), Denies headache(s) and Denies weakness Eyes: Eyes: Reports no additional eye complaints and Denies change in vision ENT: Reports system reviewed and no additional complaints, except as documented, Reports dizziness, Denies headache(s), Denies nasal congestion, Denies nasal discharge and Denies neck pain Cardiovascular: Cardiovascular: Reports no additional cardiovascular complaints, Denies chest pain, Denies leg edema and Denies dyspnea Respiratory: Respiratory: Reports no additional respiratory complaints, Denies cough and Denies dyspnea Gastrointestinal: Gastrointestinal: Reports no additional gastrointestinal complaints, Denies abdominal pain, Denies diarrhea, Denies nausea and Denies vomiting Genitourinary: Genitourinary: Denies urinary incontinence Musculoskeletal: Musculoskeletal: Reports no additional musculoskeletal complaints, Reports back pain, Denies arthralgias, Denies joint swelling, Denies neck pain, Denies numbness and Denies tingling Integumentary/Breasts: Skin/Breast: Reports system reviewed and no additional complaints, except as docu and Denies rash Neurologic: Denies Abnormal speech present, Reports dizziness, Denies headache(s), Denies numbness, Denies tingling and Denies weakness PMFSH Past Medical History Attestation statement: The following information was validated with the patient. Source: old records reviewed and nursing notes reviewed Medical History Bipolar disorder Cognitive developmental delay Diabetes HTN (hypertension) Impulse control disorder PTSD (post-traumatic stress disorder) Social History Social History Household Members: None Housing: Apartment Do you presently have visiting nurse or other home services: Yes Alcohol intake: never Patient Tobacco Use Status: Never used Tobacco Use of substances other than those prescribed or required for medical reasons: No Advance Directives: No Advance Directives Information Provided: Yes service: No Current occupational status: disabled Physical Exam Vital Signs: Vital Signs: Last Vital Signs Temp 97.3 F 06/16/21 13:11 Pulse 87 06/16/21 16:36 Resp 18 06/16/21 16:36 BP 131/80 06/16/21 16:36 Pulse Ox 100 06/16/21 16:36 BMI result Body Mass Index 24.3 Const: General: cooperative, healthy appearing, comfortable and no acute distress Orientation/consciousness: patient oriented x3 Limitations: no limitations HEENT: Head: Yes normal to inspection, No Seth's sign and No raccoon eyes Ears: hearing grossly normal bilaterally and TM's normal bilaterally General nose exam: Normal external nose present Face and sinus: Yes normal facial exam Mouth: Normal oral and palatal mucosa present Throat: Yes posterior oropharynx normal Eyes: General: appearance normal, both eyes and all related structures Pupils: Equal, round and reactive pupils present Neck: Neck: Yes normal visual inspection, Yes full ROM, Yes no lymphadenopathy and Yes no meningeal signs Chest: Chest palpation & inspection: normal inspection of the chest Resp: Effort & Inspection: normal respiratory effort Auscultation: clear to auscultation bilaterally Cardio: Rate: regular rate Rhythm: regular rhythm Peripheral pulses: Peripheral pulses 2+ throughout GI: Inspection: Yes normal to inspection Palpation (GI): Soft to palpation and nontender Auscultation: normal bowel sounds Back/Spine/Pelvis: Thoracic/Lumbar Spine: thoracic and lumbar spine normal to inspection Skin: General skin exam: no rashes or lesions noted Neuro: Other: Very difficult to examine patient as he is intermittently cooperative during exam d/t underlying DD Unable to perform finger to nose testing/heel to rojas testing (patient states I'm tired ) On exam ?horizontal nystagmus but unable to assess complete EOM as patient stops following commands during exam General: patient oriented x3, moves all extremities, no meningeal signs, no focal motor deficits, normal sensation to monofilament and Unable to assess gait Cranial nerves: Yes CN's II-XII intact bilaterally, Yes Equal, round and reactive pupils present, Yes Normal facial strength present and Yes Midline tongue present Cognition (Neuro): normal cognition Speech: No Abnormal speech present Gait exam (Neuro): Unable to assess gait Motor exam (neuro): 5/5 motor strength present throughout Sensory Exam: Normal double simultaneous stimulation for sensation Extrem: General: Yes normal to inspection Course Course Course Narrative: 61 yo male here with fall after feeling dizzy with ?LOC so may be syncope which was witnessed by A staff 1 hr TEACHING SUPERVISOR. Per staff patient has been lethargic which they noticed this morning when they picked him up for breakfast. Patient reports to feeling dizzy x 48 hrs which is worsened with eyes open, movement of body. Unable to participate in entire neurological exam which may be d/t underlying cognitive impairment. Not a reliable historian. I spent 30 minutes speaking to A credit and loan collections supervisor (Julieta), A staff with [facility] today (Kiran) and HCP (Norma Zee [phone]). He is complaining of some low back pain with no step offs or deformities. Will check labs, EKG, CT head/cervical spine, CXR/lumbar x-ray, COVID/flu screening, UA, tox screening, orthostatics. 1430-labs show NA 126. Likely from trileptal. 1500-Friend arrives who last saw patient at 730am and is concerned patient's speech is more mumbled from baseline. Not in TPA window as symptoms >4.5 hrs. 1600-Ct head/neck unremarkable. Will check CTA head/neck with contrast. CXR shows hypoinflation with patchy left basilar atelectasis versus early infiltrate. No reports of cough for shortness of breath or fever. I reviewed the x-rays myself. I do not believe that there is a pneumonia. 1700-CTA negative. Will admit for for hyponatremia, near syncope vs syncope. 1745-Admitted to medicine service (seen by Dr Bhatt)/ MDM - Fall MDM Narrative Medical decision making narrative: near syncope, syncope, seizure, ICH vs CVA, orthostatic hypotension, anemia, electrolyte abnormality, dehydration,acs Medical Records Attestation: I reviewed the patient's medical records. Lab Data Attestation: I reviewed the patient's lab results. Result diagrams: 06/16/21 13:52 06/16/21 13:52 Labs: Lab Results 06/16/21 06/16/21 06/16/21 Range/Units 13:52 13:52 13:52 WBC 10.3 (4.8-10.8) X10*3/uL RBC 5.14 (4.60-5.80) X10*6/uL Hgb 14.2 (14.0-18.0) g/dl Hct 40.5 L (42.0-52.0) % MCV 78.8 L (80.0-98.0) fL MCH 27.6 (27.0-33.0) pg MCHC 35.1 (31.0-36.0) g/dl RDW 12.1 (11.0-16.0) % Plt Count 286 (160-400) X10*3/uL MPV 8.5 L (9.4-12.4) fL Immature Gran % (Auto) 0.4 (0.0-0.4) % Neut % (Auto) 81.1 H (45-73) % Lymph % (Auto) 12.9 L (20-40) % Greer % (Auto) 4.6 (2-11) % Eos % (Auto) 0.8 (0-4) % Baso % (Auto) 0.2 (0-2) % Lymph # (Auto) 1.3 (1.2-4.9) X10*3/uL Greer # (Auto) 0.5 (0.1-1.2) X10*3/uL Eos # (Auto) 0.1 (0.0-0.4) X10*3/uL Baso # (Auto) 0.0 (0.0-0.2) X10*3/uL Abs Immat Gran (auto) 0.04 H (0.00-0.03) X10*3/uL Absolute Neuts (auto) 8.3 (2.0-8.3) x10*3/uL Absolute Nucleated RBC 0.000 (0.0-0.012) X10*3/uL Nucleated RBC % (auto) 0.0 (0.0-0.2) /100WBC PT (9.9-13.0) SEC INR (0.9-1.1) Sodium 126 L (135-145) mmol/L Potassium 4.2 (3.3-5.1) mmol/L Chloride 94 L (96-108) mmol/L Carbon Dioxide 25 (22-29) mmol/L Anion Gap 11 L (12-20) BUN 7 L (9-16) mg/dL Creatinine 0.95 (0.5-1.4) mg/dL Estim Creat Clear Calc 86.4 Estimated GFR > 60 Random Glucose 123 H (60-115) mg/dL Lactic Acid (0.5-2.0) mmol/L Calcium 9.3 (8.4-10.2) mg/dL Magnesium 2.0 (1.6-2.6) mg/dL Total Bilirubin 0.6 (0.0-1.0) mg/dL Direct Bilirubin 0.2 (0.0-0.5) mg/dL AST 29 (5-37) U/L ALT 36 (0-40) U/L Alkaline Phosphatase 83 D (39-117) U/L Ammonia (13-55) umol/L Troponin I High Sens < 3.5 (<3.5-35.0) ng/L Total Protein 7.4 (6.5-8.0) g/dL Albumin 4.8 (3.5-5.0) g/dL Urine Color Urine Appearance Urine pH (5.0-8.0) Ur Specific Osgood (1.005-1.025) Urine Protein (NEG-TRACE) MG/DL Urine Glucose (UA) (NEG) MG/DL Urine Ketones (NEG) MG/DL Urine Blood (NEG) Urine Nitrite (NEG) Ur Leukocyte Esterase (NEG) Urine Opiates Screen (Not Detect) Urine Fentanyl Screen (Not Detect) Ur Barbiturates Screen (Not Detect) Ur Phencyclidine Scrn (Not Detect) Ur Amphetamines Screen (Not Detect) U Benzodiazepines Scrn (Not Detect) Urine Cocaine Screen (Not Detect) U Marijuana (THC) Screen (Not Detect) Ethyl Alcohol mg/dL COVID-19 (NATALIE) (Negative) COVID-19 Clin Com Influenza Type A (NAMRATA) (Negative) Influenza Type B (NAMRATA) (Negative) Influenza A & B Note 06/16/21 06/16/21 06/16/21 Range/Units 13:53 13:53 13:53 WBC (4.8-10.8) X10*3/uL RBC (4.60-5.80) X10*6/uL Hgb (14.0-18.0) g/dl Hct (42.0-52.0) % MCV (80.0-98.0) fL MCH (27.0-33.0) pg MCHC (31.0-36.0) g/dl RDW (11.0-16.0) % Plt Count (160-400) X10*3/uL MPV (9.4-12.4) fL Immature Gran % (Auto) (0.0-0.4) % Neut % (Auto) (45-73) % Lymph % (Auto) (20-40) % Greer % (Auto) (2-11) % Eos % (Auto) (0-4) % Baso % (Auto) (0-2) % Lymph # (Auto) (1.2-4.9) X10*3/uL Greer # (Auto) (0.1-1.2) X10*3/uL Eos # (Auto) (0.0-0.4) X10*3/uL Baso # (Auto) (0.0-0.2) X10*3/uL Abs Immat Gran (auto) (0.00-0.03) X10*3/uL Absolute Neuts (auto) (2.0-8.3) x10*3/uL Absolute Nucleated RBC (0.0-0.012) X10*3/uL Nucleated RBC % (auto) (0.0-0.2) /100WBC PT (9.9-13.0) SEC INR (0.9-1.1) Sodium (135-145) mmol/L Potassium (3.3-5.1) mmol/L Chloride (96-108) mmol/L Carbon Dioxide (22-29) mmol/L Anion Gap (12-20) BUN (9-16) mg/dL Creatinine (0.5-1.4) mg/dL Estim Creat Clear Calc Estimated GFR Random Glucose (60-115) mg/dL Lactic Acid 1.6 (0.5-2.0) mmol/L Calcium (8.4-10.2) mg/dL Magnesium (1.6-2.6) mg/dL Total Bilirubin (0.0-1.0) mg/dL Direct Bilirubin (0.0-0.5) mg/dL AST (5-37) U/L ALT (0-40) U/L Alkaline Phosphatase (39-117) U/L Ammonia (13-55) umol/L Troponin I High Sens (<3.5-35.0) ng/L Total Protein (6.5-8.0) g/dL Albumin (3.5-5.0) g/dL Urine Color Urine Appearance Urine pH (5.0-8.0) Ur Specific Osgood (1.005-1.025) Urine Protein (NEG-TRACE) MG/DL Urine Glucose (UA) (NEG) MG/DL Urine Ketones (NEG) MG/DL Urine Blood (NEG) Urine Nitrite (NEG) Ur Leukocyte Esterase (NEG) Urine Opiates Screen (Not Detect) Urine Fentanyl Screen (Not Detect) Ur Barbiturates Screen (Not Detect) Ur Phencyclidine Scrn (Not Detect) Ur Amphetamines Screen (Not Detect) U Benzodiazepines Scrn (Not Detect) Urine Cocaine Screen (Not Detect) U Marijuana (THC) Screen (Not Detect) Ethyl Alcohol < 10 mg/dL COVID-19 (NATALIE) (Negative) COVID-19 Clin Com Influenza Type A (NAMRATA) Negative (Negative) Influenza Type B (NAMRATA) Negative (Negative) Influenza A & B Note See Note 06/16/21 06/16/21 06/16/21 Range/Units 13:53 14:22 14:22 WBC (4.8-10.8) X10*3/uL RBC (4.60-5.80) X10*6/uL Hgb (14.0-18.0) g/dl Hct (42.0-52.0) % MCV (80.0-98.0) fL MCH (27.0-33.0) pg MCHC (31.0-36.0) g/dl RDW (11.0-16.0) % Plt Count (160-400) X10*3/uL MPV (9.4-12.4) fL Immature Gran % (Auto) (0.0-0.4) % Neut % (Auto) (45-73) % Lymph % (Auto) (20-40) % Greer % (Auto) (2-11) % Eos % (Auto) (0-4) % Baso % (Auto) (0-2) % Lymph # (Auto) (1.2-4.9) X10*3/uL Greer # (Auto) (0.1-1.2) X10*3/uL Eos # (Auto) (0.0-0.4) X10*3/uL Baso # (Auto) (0.0-0.2) X10*3/uL Abs Immat Gran (auto) (0.00-0.03) X10*3/uL Absolute Neuts (auto) (2.0-8.3) x10*3/uL Absolute Nucleated RBC (0.0-0.012) X10*3/uL Nucleated RBC % (auto) (0.0-0.2) /100WBC PT 12.1 (9.9-13.0) SEC INR 1.1 (0.9-1.1) Sodium (135-145) mmol/L Potassium (3.3-5.1) mmol/L Chloride (96-108) mmol/L Carbon Dioxide (22-29) mmol/L Anion Gap (12-20) BUN (9-16) mg/dL Creatinine (0.5-1.4) mg/dL Estim Creat Clear Calc Estimated GFR Random Glucose (60-115) mg/dL Lactic Acid (0.5-2.0) mmol/L Calcium (8.4-10.2) mg/dL Magnesium (1.6-2.6) mg/dL Total Bilirubin (0.0-1.0) mg/dL Direct Bilirubin (0.0-0.5) mg/dL AST (5-37) U/L ALT (0-40) U/L Alkaline Phosphatase (39-117) U/L Ammonia 32 (13-55) umol/L Troponin I High Sens (<3.5-35.0) ng/L Total Protein (6.5-8.0) g/dL Albumin (3.5-5.0) g/dL Urine Color Urine Appearance Urine pH (5.0-8.0) Ur Specific Osgood (1.005-1.025) Urine Protein (NEG-TRACE) MG/DL Urine Glucose (UA) (NEG) MG/DL Urine Ketones (NEG) MG/DL Urine Blood (NEG) Urine Nitrite (NEG) Ur Leukocyte Esterase (NEG) Urine Opiates Screen (Not Detect) Urine Fentanyl Screen (Not Detect) Ur Barbiturates Screen (Not Detect) Ur Phencyclidine Scrn (Not Detect) Ur Amphetamines Screen (Not Detect) U Benzodiazepines Scrn (Not Detect) Urine Cocaine Screen (Not Detect) U Marijuana (THC) Screen (Not Detect) Ethyl Alcohol mg/dL COVID-19 (NATALIE) Negative (Negative) COVID-19 Clin Com See Note Influenza Type A (NAMRATA) (Negative) Influenza Type B (NAMRATA) (Negative) Influenza A & B Note 06/16/21 06/16/21 Range/Units 16:35 16:35 WBC (4.8-10.8) X10*3/uL RBC (4.60-5.80) X10*6/uL Hgb (14.0-18.0) g/dl Hct (42.0-52.0) % MCV (80.0-98.0) fL MCH (27.0-33.0) pg MCHC (31.0-36.0) g/dl RDW (11.0-16.0) % Plt Count (160-400) X10*3/uL MPV (9.4-12.4) fL Immature Gran % (Auto) (0.0-0.4) % Neut % (Auto) (45-73) % Lymph % (Auto) (20-40) % Greer % (Auto) (2-11) % Eos % (Auto) (0-4) % Baso % (Auto) (0-2) % Lymph # (Auto) (1.2-4.9) X10*3/uL Greer # (Auto) (0.1-1.2) X10*3/uL Eos # (Auto) (0.0-0.4) X10*3/uL Baso # (Auto) (0.0-0.2) X10*3/uL Abs Immat Gran (auto) (0.00-0.03) X10*3/uL Absolute Neuts (auto) (2.0-8.3) x10*3/uL Absolute Nucleated RBC (0.0-0.012) X10*3/uL Nucleated RBC % (auto) (0.0-0.2) /100WBC PT (9.9-13.0) SEC INR (0.9-1.1) Sodium (135-145) mmol/L Potassium (3.3-5.1) mmol/L Chloride (96-108) mmol/L Carbon Dioxide (22-29) mmol/L Anion Gap (12-20) BUN (9-16) mg/dL Creatinine (0.5-1.4) mg/dL Estim Creat Clear Calc Estimated GFR Random Glucose (60-115) mg/dL Lactic Acid (0.5-2.0) mmol/L Calcium (8.4-10.2) mg/dL Magnesium (1.6-2.6) mg/dL Total Bilirubin (0.0-1.0) mg/dL Direct Bilirubin (0.0-0.5) mg/dL AST (5-37) U/L ALT (0-40) U/L Alkaline Phosphatase (39-117) U/L Ammonia (13-55) umol/L Troponin I High Sens (<3.5-35.0) ng/L Total Protein (6.5-8.0) g/dL Albumin (3.5-5.0) g/dL Urine Color YELLOW Urine Appearance CLEAR Urine pH 7.0 (5.0-8.0) Ur Specific Osgood <= 1.005 (1.005-1.025) Urine Protein NEG (NEG-TRACE) MG/DL Urine Glucose (UA) 100 H (NEG) MG/DL Urine Ketones NEG (NEG) MG/DL Urine Blood NEG (NEG) Urine Nitrite NEG (NEG) Ur Leukocyte Esterase NEG (NEG) Urine Opiates Screen Not Detected (Not Detect) Urine Fentanyl Screen Not Detected (Not Detect) Ur Barbiturates Screen Not Detected (Not Detect) Ur Phencyclidine Scrn Not Detected (Not Detect) Ur Amphetamines Screen Not Detected (Not Detect) U Benzodiazepines Scrn Not Detected (Not Detect) Urine Cocaine Screen Not Detected (Not Detect) U Marijuana (THC) Screen Not Detected (Not Detect) Ethyl Alcohol mg/dL COVID-19 (NATALIE) (Negative) COVID-19 Clin Com Influenza Type A (NAMRATA) (Negative) Influenza Type B (NAMRATA) (Negative) Influenza A & B Note Imaging Data CT head/neck w/o contrast: Attestation: I personally reviewed and interpreted this imaging study as follows: Radiologist's impression: [place] [id number] CT Scan Report Signed Patient: [facility] Bartlett MR#: [id number] : 1960 Acct:[id number] Age/Sex: 61 / M ADM Date: 06/16/21 Loc: .ED Attending Dr: Ordering Physician: Rosina Jones NP Date of Service: 06/16/21 Procedure(s): CT cervical spine wo con Accession Number(s): [id number] cc: Rosina Jones NP~ EXAMINATION: CT BRAIN WITHOUT CONTRAST CT CERVICAL SPINE WITHOUT CONTRAST CLINICAL INFORMATION: AMS? COMPARISON: None? TECHNIQUE: 5 mm thin axial and reformatted 2 mm thin sagittal and coronal images of brain were obtained. Subsequently axial 3 mm thin and reformatted 2 mm thin sagittal and coronal images of cervical spine were obtained. DLP: 1402 mGy-cm FINDINGS: BRAIN: There is no acute intra-axial, extra-axial bleed, masses or midline shift. There is no acute infarction evolution. The lateral ventricles are symmetrical in size and configuration without enlargement. The hartman to white matter differentiation maintained. Bone windows reveal no calvarial abnormality. There is no scalp soft tissue abnormality. Bilateral paranasal sinuses and mastoid air cells are well-aerated without mucoperiosteal thickening. The scalp soft tissues appear unremarkable. CERVICAL SPINE: On sagittal reconstructed images, there is maintained cervical lordosis. The vertebral heights, alignment and disc heights are normal. The craniovertebral junction and the C1-C2 alignment is normal. There is mild superior spurring at the C1-C2 alignment. There is mild left C2-C3, C3-C4 and C4-C5 facet joint arthropathy and hypertrophy. CT/CT cervical spine wo con IMPRESSION: 1. No acute intracranial process seen. ? 2. No acute fracture, dislocation or subluxation in the cervical spine. There are degenerative facet joint arthropathy as described above. Chest x-ray: Attestation: I personally reviewed and interpreted this imaging study as follows: Radiologist's impression: FINDINGS: Hypoinflation of the lungs with patchy posterior left basilar atelectasis versus early infiltrate. No pleural effusion or pneumothorax. Stable cardiomediastinal silhouette. XR/XR chest 2V IMPRESSION: Hypoinflation with patchy left basilar atelectasis versus early infiltrate. lumbar x-ray: Attestation: I personally reviewed and interpreted this imaging study as follows: Radiologist's impression: FINDINGS: Normal vertebral body alignment. The lumbar lordosis is maintained. No acute fracture or subluxation. No loss of vertebral body height. Mild loss of intervertebral disc height at T11-T12 with anterior endplate osteophytes. Additional tiny multilevel anterior endplate osteophytes. Bilateral facet arthropathy at L4-L5 and L5-S1. Findings have increased when compared to the prior radiographs. Moderate stool burden. XR/XR lumbar spine 2-3V IMPRESSION: Mild multilevel degenerative disc disease, increased when compared to the radiographs from 2006. ? No acute fracture or subluxation. ? Moderate stool burden. CTA head/neck: Attestation: I personally reviewed and interpreted this imaging study as follows: Radiologist's impression: CT/CT angio head neck IMPRESSION: 1. There are no acute bleeds or territorial infarcts. There are no masses or areas of abnormal enhancement. There is mild diffuse volume loss. ? 2. There are no flow-limiting stenoses in the neck circulation. There is no significant atheromatous disease. ? 3. Intracranially there are no focal stenoses, aneurysms or vascular malformations. ? 4. There is a 4 mm nodule in the right upper lobe of the lung, which appears calcified. Various management parameters for solitary pulmonary nodules are in the literature. According to the UPDATED 2017 Fleischner Society recommendations, the advised follow-up imaging for solid nodules < 6 mm is: ?? LOW RISK PATIENT: No routine follow-up. ?? HIGH RISK PATIENT: Optional CT at 12 months. ? Reference: Guidelines for Management of Incidental Pulmonary Nodules Detected on CT Images: From the Fleischner Society 2017. ? ECG Data Attestation: I personally reviewed and interpreted this ECG as follows: ECG interpretation date: 06/16/21 ECG interpretation time: 13:59 Interpretation: Normal sinus rhythm with a rate of 70, normal MT, normal QRS, normal QT Discharge Plan Discharge Clinical Impression: Acute hyponatremia, Dizziness Patient Disposition: Admitted As Inpatient
[2021-06-16 13:58] LABS: MANUAL DIFF FLAG NO
[2021-06-16 14:08] LABS: Basophils Percent Auto 0.2 % (0-2); Eosinophils Absolute Auto 0.1 X10*3/uL (0.0-0.4); Eosinophils Percent Auto 0.8 % (0-4); Hematocrit 40.5 % (42.0-52.0); Hemoglobin 14.2 g/dl (14.0-18.0); Imm Gran Abs Auto 0.04 X10*3/uL (0.00-0.03); Imm Gran Pct Auto 0.4 % (0.0-0.4); Lymphocytes Absolute Auto 1.3 X10*3/uL (1.2-4.9); Lymphocytes Percent Auto 12.9 % (20-40); Mean Corpuscular HGB Conc 35.1 g/dl (31.0-36.0); Mean Corpuscular Hemoglobin 27.6 pg (27.0-33.0); Mean Corpuscular Volume 78.8 fL (80.0-98.0); Mean Platelet Volume 8.5 fL (9.4-12.4); Monocytes Absolute Auto 0.5 X10*3/uL (0.1-1.2); Monocytes Percent Auto 4.6 % (2-11); Neutrophils Absolute Auto 8.3 x10*3/uL (2.0-8.3); Neutrophils Percent Auto 81.1 % (45-73); Platelet Count 286 X10*3/uL (160-400); Red Blood Count 5.14 X10*6/uL (4.60-5.80); Red Cell Distribution Width 12.1 % (11.0-16.0); White Blood Count 10.3 X10*3/uL (4.8-10.8)
[2021-06-16 14:15] LABS: Lactic Acid 1.6 mmol/L (0.5-2.0)
[2021-06-16] MEDS: Meclizine HCl 25 MG TABLET PO (14:16)
[2021-06-16 14:19] LABS: COVID-19 Test Negative (Negative); IDNOW Serial# 16C4AD1C
[2021-06-16 14:20] LABS: Alanine Aminotransferase 36 U/L (0-40); Albumin Level 4.8 g/dL (3.5-5.0); Alkaline Phosphatase 83 U/L (39-117); Anion Gap 11 (12-20); Aspartate Amino Transferase 29 U/L (5-37); Bilirubin Direct 0.2 mg/dL (0.0-0.5); Bilirubin Total 0.6 mg/dL (0.0-1.0); Blood Urea Nitrogen 7 mg/dL (9-16); Calcium 9.3 mg/dL (8.4-10.2); Carbon Dioxide 25 mmol/L (22-29); Chloride 94 mmol/L (96-108); Creatinine Clr Calc Pharmacy 86.4; Estimated Glomerular Filt Rate > 60; Glucose Random 123 mg/dL (60-115); Potassium 4.2 mmol/L (3.3-5.1); Sodium 126 mmol/L (135-145); Total Protein 7.4 g/dL (6.5-8.0)
[2021-06-16 14:24] LABS: Ethanol < 10 mg/dL
[2021-06-16 14:28] LABS: Troponin-I High Sensitivity < 3.5 ng/L (<3.5-35.0)
[2021-06-16 14:30] LABS: Influenza A Negative (Negative); Influenza B2 Negative (Negative)
[2021-06-16 14:34] LABS: INTERNATIONAL NORM RATIO 1.1 (0.9-1.1); Prothrombin Time 12.1 SEC (9.9-13.0)
[2021-06-16 14:39] LABS: Ammonia 32 umol/L (13-55)
--- NOTE | 2021-06-16 14:45 | PHA.MEDREC ---
Pharmacy Consult ? Medication Reconciliation Pharmacy has completed the medication reconciliation. [facility] report oxcarbazepine 300 mg tablet however pre pharmacy dose was recently increased to 600 mg BID. Tamsulosin is also on [facility] list however it has no been filled since October 2020. Farnaz Foley, pharmD
[2021-06-16] MEDS: Acetaminophen 325 MG TABLET 975 MG PO (16:13)
[2021-06-16] MEDS: iohexoL 350 MG/ML 100 ML INFUS..BTL IV (16:16)
[2021-06-16 16:47] LABS: Appearance Urine CLEAR; Color Urine YELLOW; Glucose Urine UA 100 MG/DL (NEG); Leukocyte Esterase Urine NEG (NEG); Nitrite Urine NEG (NEG); Specific Gravity - Urine <= 1.005 (1.005-1.025); Urine Blood NEG (NEG); Urine Ketones NEG (NEG); Urine Protein NEG (NEG-TRACE)
[2021-06-16 17:03] LABS: Amphetamine Screen Urine Not Detected (Not Detect); Barbiturates, Urine Not Detected (Not Detect); Benzodiazepines Screen Urine Not Detected (Not Detect); Cannabinoid Screen Urine Not Detected (Not Detect); Cocaine Screen Urine Not Detected (Not Detect); Fentanyl, urine Not Detected (Not Detect); Opiate Screen Urine Not Detected (Not Detect); Phencyclidine Screen Urine Not Detected (Not Detect)
--- NOTE | 2021-06-16 18:02 | PM.IMHP ---
History of Present Illness Date of Service: 06/16/21 Attending physician on admission: Roge Bhatt Chief Complaint: syncope 60-year-old gentleman with past medical history significant for cognitive developmental delay, type 2 diabetes mellitus, hypertension, bipolar disorder lives at home with daily visit by VNA, was walking with A staff into his apartment down a flight of stairs when he fell down 4 steps, staff is unsure if he had loss of consciousness since patient was not responding when they called his name, later patient became more awake and conscious and admitted that he was dizzy prior to fall and he has been dizzy for last couple days, patient is a poor historian , patient is friend is at bedside and informed that patient had a fall at her home 5 6 days ago at that time he also lost his consciousness, friend noticed today that patient was having jerky movements of upper extremities and also feels that his is speech is more impaired than baseline dysarthria, patient is tearful crying because he does not want to stay in the hospital he is complaining of right-sided chest pain, denies associated fever chills no shortness of breath no palpitations, recently according to girlfriend he has been weaned down his Klonopin, that likely he stopped 1 week ago previously was taking 1 tablet twice daily, of note patient had similar presentation last year and was noted to have elevated valproic acid level since then his valproic acid has been discontinued, lab work today showed a sodium of 126, lactic acid of 1.6, normal urine and analysis and imaging studies of C-spine, CTA head and neck, chest x-ray and lumbar spine x-rays. patient is being admitted to [facility] with a diagnosis of hyponatremia and syncope possible related to seizure Review of Systems Review of Systems: General no headache , occasional dizziness no fever chills. CVS right-sided chest pain, no palpitation. Respiratory no cough, no sputum production no respiratory distress. Gastrointestinal no nausea no vomiting, no abdominal pain skin no rash Yes all other systems are reviewed and are negative [facility] Medical History Bipolar disorder Cognitive developmental delay Diabetes HTN (hypertension) Impulse control disorder PTSD (post-traumatic stress disorder) Pertinent family history: patient unable to provide family history due to cognitive impairment Social History Household Members: None Housing: Apartment Do you presently have visiting nurse or other home services: Yes (VNA daily) Alcohol intake: never Patient Tobacco Use Status: Never used Tobacco Use of substances other than those prescribed or required for medical reasons: No Currently Displaying Signs/Symptoms of Drug Intoxication Withdrawal: No Have you been hit, kicked, punched, or otherwise hurt by someone within the past year? If so, by whom?: No Do you feel safe in your current relationship?: No Current Relationship Is there a partner from a previous relationship who is making you feel unsafe now?: No Are you made to feel afraid or neglected: No Advance Directives: No Advance Directives Information Provided: Yes Do you have thoughts of harming others: None Do you have a plan to hurt others: No Plan Recently lost weight without trying: No Nutrition Risks: No Nutritional Risk service: No Current occupational status: disabled Meds Allergies Allergy/AdvReac Type Severity Reaction Status Date / Time aspirin [ASPIRIN] Allergy Unknown NOSE BLEEDS Verified 11/18/20 14:53 haloperidol [From HALDOL] Allergy Unknown EYES ROLL Verified 11/18/20 14:53 ibuprofen [IBUPROFEN] Allergy Unknown NOSE BLEEDS Verified 11/18/20 14:53 lactose [LACTOSE] Allergy Unknown DIARRHEA Verified 11/18/20 14:53 Penicillins [PENICILLINS] Allergy Unknown NAUSEA Verified 11/18/20 14:53 pineapple [PINEAPPLE] Allergy Unknown ITCHING,LISETH Verified 11/18/20 14:53 H dairy Allergy Unknown Unknown Uncoded 11/18/20 14:53 pineapple Allergy Unknown Unknown Uncoded 11/18/20 14:53 SEASONAL ALLERGIES Allergy Unknown SNEEZING,FACE Uncoded 12/11/19 16:07 SWELLING Active Medications: Current Medications Acetaminophen (Acetaminophen 325 Mg Tablet) 650 mg PO Q6H PRN PRN Reason: Pain, Mild (Pain Scale 1-3) Atorvastatin Calcium (Atorvastatin Calcium 10 Mg Tablet) 10 mg PO DAILY TAI Benztropine Mesylate (Benztropine Mesylate 1 Mg Tablet) 1 mg PO BID TAI Chlorpromazine HCl (Chlorpromazine Hcl 100 Mg Tablet) 100 - 200 mg PO BID PRN PRN Reason: Agitation Chlorpromazine HCl (Chlorpromazine Hcl 100 Mg Tablet) 100 mg PO BEDTIME TAI Enoxaparin Sodium (Enoxaparin Sodium 40 Mg/0.4 Ml Syringe) 40 mg SUBCUT Q24H [facility] Famotidine (Famotidine 20 Mg Tablet) 40 mg PO BID [facility] Fluticasone Propionate (Fluticasone Propionate Nasal 16 Gm [place]) 1 spray NOSTRIL-B BID [facility] Hydroxyzine HCl (Hydroxyzine Hcl 50 Mg Tablet) 50 mg PO TID PRN PRN Reason: anxiety or agitation Sodium Chloride (Ns) 1,000 mls @ 100 mls/hr IVCONT .Q10H TAI Stop: 06/17/21 03:59 Lisinopril (Lisinopril 5 Mg Tablet) 5 mg PO DAILY [facility]; Protocol Ondansetron HCl (Ondansetron Hcl 4 Mg/2 Ml Vial) 4 mg IVPUSH Q8H PRN PRN Reason: Nausea and Vomiting Oxcarbazepine (Oxcarbazepine 300 Mg Tablet) 600 mg PO BID [facility] Pharmacy Consult (Consult Rx Perform Med Rec) 1 each MISCELLANE ONCE PRN PRN Reason: Consult order Polyethylene Glycol (Polyethylene Glycol 3350 17 Gm Powd.Pack) 17 gm PO DAILY [facility] Propranolol HCl (Propranolol Hcl 20 Mg Tablet) 60 mg PO BID [facility]; Protocol Sodium Chloride (0.9 % Sodium Chloride Flush 3 Ml Syringe) 3 ml IVFLUSH QSHIFT [facility] Topiramate (Topiramate 25 Mg Tablet) 50 mg PO DAILY [facility] Trazodone HCl (Trazodone Hcl 50 Mg Tablet) 150 mg PO BEDTIME PRN PRN Reason: insomnia Home Medications Medication Instructions Recorded Confirmed Last Taken Type atorvastatin 10 mg tablet 1 tab PO DAILY 11/18/20 06/16/21 Unknown History benztropine 1 mg tablet 1 tab PO BID 11/18/20 06/16/21 Unknown History chlorpromazine 100 mg tablet 100 - 200 mg PO BID PRN 11/18/20 06/16/21 Unknown History chlorpromazine 100 mg tablet 100 mg PO BEDTIME 11/18/20 06/16/21 Unknown History famotidine 40 mg tablet 1 tab PO BID 11/18/20 06/16/21 Unknown History hydroxyzine HCl 50 mg tablet 1 tab PO TID PRN 11/18/20 06/16/21 Unknown History lisinopril 5 mg tablet 1 tab PO DAILY 11/18/20 06/16/21 Unknown History propranolol 60 mg tablet 1 tab PO BID 11/18/20 06/16/21 Unknown History topiramate 50 mg tablet 1 tab PO DAILY 11/18/20 06/16/21 Unknown History acetaminophen 500 mg tablet 500 mg PO Q6H PRN 06/16/21 06/16/21 Unknown History albuterol sulfate 2.5 mg INHALATION Q4-6H PRN 06/16/21 06/16/21 Unknown History fluticasone propionate 50 1 spray INTRANASAL BID 06/16/21 06/16/21 Unknown History mcg/actuation nasal spray,suspension oxcarbazepine 600 mg tablet 600 mg PO BID 06/16/21 06/16/21 Unknown History polyethylene glycol 3350 17 gram 17 g PO DAILY 06/16/21 06/16/21 Unknown History oral powder packet (Miralax) trazodone 150 mg tablet 1 tab PO BEDTIME PRN 06/16/21 06/16/21 Unknown History Physical Exam Vital Signs and Narrative: Vital Signs: Last Vital Signs Temp 97.3 F 06/16/21 13:11 Pulse 87 06/16/21 16:36 Resp 18 06/16/21 16:36 BP 131/80 06/16/21 16:36 Pulse Ox 100 06/16/21 16:36 BMI result Body Mass Index 24.3 Const: Other: General awake alert, tearful, in no acute distress. HEENT pupils equal round reactive to light and accommodation Neck supple no JVD. CVS regular rate rhythm, Respiratory lungs clear to auscultation, no respiratory distress, no wheeze, no rhonchi. Gastrointestinal abdomen soft, nontender, bowel sounds audible, no guarding , no rigidity. Extremities no edema. is status post amputation of left little finger, contraction deformity of ring fingers both hands Neuro dysarthric speech, normal strength and tone. Skin no rash Results Labs CBC and Chem 7: 06/16/21 13:52 06/17/21 08:00 Labs: Laboratory Results - last 24 hr 06/16/21 06/16/21 06/16/21 13:52 13:52 13:53 MCV 78.8 L MCH 27.6 MCHC 35.1 RDW 12.1 Plt Count 286 MPV 8.5 L Immature Gran % (Auto) 0.4 Neut % (Auto) 81.1 H Lymph % (Auto) 12.9 L [place] % (Auto) 4.6 Eos % (Auto) 0.8 Baso % (Auto) 0.2 Lymph # (Auto) 1.3 [place] # (Auto) 0.5 Eos # (Auto) 0.1 Baso # (Auto) 0.0 Abs Immat Gran (auto) 0.04 H Absolute Neuts (auto) 8.3 Absolute Nucleated RBC 0.000 Nucleated RBC % (auto) 0.0 PT INR Anion Gap 11 L Estim Creat Clear Calc 86.4 Estimated GFR > 60 Random Glucose 123 H Lactic Acid Calcium 9.3 Magnesium 2.0 Total Bilirubin 0.6 Direct Bilirubin 0.2 AST 29 ALT 36 Alkaline Phosphatase 83 D Ammonia Total Protein 7.4 Albumin 4.8 Urine Color Urine Appearance Urine pH Ur Specific [place] Urine Protein Urine Glucose (UA) Urine Ketones Urine Blood Urine Nitrite Ur Leukocyte Esterase Urine Opiates Screen Urine Fentanyl Screen Ur Barbiturates Screen Ur Phencyclidine Scrn Ur Amphetamines Screen U Benzodiazepines Scrn Urine Cocaine Screen U Marijuana (THC) Screen Ethyl Alcohol < 10 COVID-19 (NATALIE) COVID-19 Clin Com Influenza Type A (NAMRATA) Influenza Type B (NAMRATA) Influenza A & B Note 06/16/21 06/16/21 06/16/21 13:53 13:53 13:53 MCV MCH MCHC RDW Plt Count MPV Immature Gran % (Auto) Neut % (Auto) Lymph % (Auto) [place] % (Auto) Eos % (Auto) Baso % (Auto) Lymph # (Auto) [place] # (Auto) Eos # (Auto) Baso # (Auto) Abs Immat Gran (auto) Absolute Neuts (auto) Absolute Nucleated RBC Nucleated RBC % (auto) PT INR Anion Gap Estim Creat Clear Calc Estimated GFR Random Glucose Lactic Acid 1.6 Calcium Magnesium Total Bilirubin Direct Bilirubin AST ALT Alkaline Phosphatase Ammonia Total Protein Albumin Urine Color Urine Appearance Urine pH Ur Specific [place] Urine Protein Urine Glucose (UA) Urine Ketones Urine Blood Urine Nitrite Ur Leukocyte Esterase Urine Opiates Screen Urine Fentanyl Screen Ur Barbiturates Screen Ur Phencyclidine Scrn Ur Amphetamines Screen U Benzodiazepines Scrn Urine Cocaine Screen U Marijuana (THC) Screen Ethyl Alcohol COVID-19 (NATALIE) Negative COVID-19 Clin Com See Note Influenza Type A (NAMRATA) Negative Influenza Type B (NAMRATA) Negative Influenza A & B Note See Note 06/16/21 06/16/21 06/16/21 14:22 14:22 16:35 MCV MCH MCHC RDW Plt Count MPV Immature Gran % (Auto) Neut % (Auto) Lymph % (Auto) [place] % (Auto) Eos % (Auto) Baso % (Auto) Lymph # (Auto) [place] # (Auto) Eos # (Auto) Baso # (Auto) Abs Immat Gran (auto) Absolute Neuts (auto) Absolute Nucleated RBC Nucleated RBC % (auto) PT 12.1 INR 1.1 Anion Gap Estim Creat Clear Calc Estimated GFR Random Glucose Lactic Acid Calcium Magnesium Total Bilirubin Direct Bilirubin AST ALT Alkaline Phosphatase Ammonia 32 Total Protein Albumin Urine Color YELLOW Urine Appearance CLEAR Urine pH 7.0 Ur Specific [place] <= 1.005 Urine Protein NEG Urine Glucose (UA) 100 H Urine Ketones NEG Urine Blood NEG Urine Nitrite NEG Ur Leukocyte Esterase NEG Urine Opiates Screen Urine Fentanyl Screen Ur Barbiturates Screen Ur Phencyclidine Scrn Ur Amphetamines Screen U Benzodiazepines Scrn Urine Cocaine Screen U Marijuana (THC) Screen Ethyl Alcohol COVID-19 (NATALIE) COVID-19 Clin Com Influenza Type A (NAMRATA) Influenza Type B (NAMRATA) Influenza A & B Note 06/16/21 16:35 MCV MCH MCHC RDW Plt Count MPV Immature Gran % (Auto) Neut % (Auto) Lymph % (Auto) [place] % (Auto) Eos % (Auto) Baso % (Auto) Lymph # (Auto) [place] # (Auto) Eos # (Auto) Baso # (Auto) Abs Immat Gran (auto) Absolute Neuts (auto) Absolute Nucleated RBC Nucleated RBC % (auto) PT INR Anion Gap Estim Creat Clear Calc Estimated GFR Random Glucose Lactic Acid Calcium Magnesium Total Bilirubin Direct Bilirubin AST ALT Alkaline Phosphatase Ammonia Total Protein Albumin Urine Color Urine Appearance Urine pH Ur Specific [place] Urine Protein Urine Glucose (UA) Urine Ketones Urine Blood Urine Nitrite Ur Leukocyte Esterase Urine Opiates Screen Not Detected Urine Fentanyl Screen Not Detected Ur Barbiturates Screen Not Detected Ur Phencyclidine Scrn Not Detected Ur Amphetamines Screen Not Detected U Benzodiazepines Scrn Not Detected Urine Cocaine Screen Not Detected U Marijuana (THC) Screen Not Detected Ethyl Alcohol COVID-19 (NATALIE) COVID-19 Clin Com Influenza Type A (NAMRATA) Influenza Type B (NAMRATA) Influenza A & B Note Imaging Radiologist's Impressions: Impressions Cervical Spine CT 06/16/21 13:50 IMPRESSION: 1. No acute intracranial process seen. 2. No acute fracture, dislocation or subluxation in the cervical spine. There are degenerative facet joint arthropathy as described above. Head CT 06/16/21 13:50 IMPRESSION: 1. No acute intracranial process seen. 2. No acute fracture, dislocation or subluxation in the cervical spine. There are degenerative facet joint arthropathy as described above. Chest X-Ray 06/16/21 14:48 IMPRESSION: Hypoinflation with patchy left basilar atelectasis versus early infiltrate. Lumbar Spine X-Ray 06/16/21 14:48 IMPRESSION: Mild multilevel degenerative disc disease, increased when compared to the radiographs from 2006. No acute fracture or subluxation. Moderate stool burden. Head/Neck CTA 06/16/21 16:35 IMPRESSION: 1. There are no acute bleeds or territorial infarcts. There are no masses or areas of abnormal enhancement. There is mild diffuse volume loss. 2. There are no flow-limiting stenoses in the neck circulation. There is no significant atheromatous disease. 3. Intracranially there are no focal stenoses, aneurysms or vascular malformations. 4. There is a 4 mm nodule in the right upper lobe of the lung, which appears calcified. Various management parameters for solitary pulmonary nodules are in the literature. According to the UPDATED 2017 Fleischner Society recommendations, the advised follow-up imaging for solid nodules < 6 mm is: LOW RISK PATIENT: No routine follow-up. HIGH RISK PATIENT: Optional CT at 12 months. Reference: Guidelines for Management of Incidental Pulmonary Nodules Detected on CT Images: From the Fleischner Society 2017. Assessment and Plan (1) Acute hyponatremia: Status: Acute (2) Dizziness: Status: Acute (3) Syncope: Status: Acute Plan 61-year-old gentleman with past medical history significant for bipolar disorder, cognitive impairment, type 2 diabetes mellitus, hyperlipidemia presented to [facility] after of fall / syncope and noted to have hyponatremia. Syncope unknown etiology patient with underlying history of seizure disorder currently on Trileptal 600 b.i.d. and Topamax 50 mg daily, question patient recently weaned from Klonopin causing benzo withdrawal seizure orthostatic studies unremarkable, EKG showed no acute abnormality low-sodium but not significant to cause syncope admit to telemetry, take seizure precautions obtain neuro consult, check EEG hyponatremia likely related to Trileptal will check serum osmolality give 1 L of sodium chloride limit fluid to 1500 mL follow labs, consult Nephrology Type 2 diabetes mellitus follow blood sugars and placed on diabetic diet patient not on home medication bipolar disorder with history of agitation continue home medications hypertension blood pressure is stable continue home medication propranolol and Zestril follow BP closely. code status full code DVT prophylaxis with Lovenox patient will spend two inpatient hospitalization due to hyponatremia with psych med adjustment and further workup for syncope likely related to seizure. Quality Stroke Does the patient have a stroke diagnosis?: No VTE Prior VTE?: No VTE Risk Level:: Medical - moderate - high VTE Device Contraindication: Treatment Not Indicated VTE Drug Contraindication: N/A - Med Ordered
[2021-06-16] MEDS: 0.9 % Sodium Chloride 1,000 ML 100 ML IVCONT (18:19)
--- NOTE | 2021-06-16 18:23 | PC.NURSE ---
Pt remains alert and oriented x4. Pt calm and cooperative at times, noted to have intermittent periods of restlessness and on and off crying. Pt easily re-directable. Friend remains at bedside with patient. Pt states muscular chest pain with laughing, MD aware. IV access remains intact infusing IV fluids without issues at this time. Vitals stable. Pt ate late lunch and tolerated well, denies N/V or abd pain. Pt refusing to put on hospital gown at this time. Remains on tele monitor. 1 attempt to call for report at this time, waiting for call back.
[2021-06-16] MEDS: Enoxaparin Sodium 40 MG/0.4 ML SYRINGE SUBCUT (21:54)
[2021-06-16] MEDS: Famotidine 20 MG TABLET 40 MG PO (21:55)
[2021-06-16] MEDS: Propranolol HCL 20 MG TABLET 60 MG PO (21:55)
[2021-06-16] MEDS: chlorproMAZINE HCl 100 MG TABLET PO (21:55)
[2021-06-16] MEDS: Benztropine Mesylate 1 MG TABLET PO (21:55)
[2021-06-16] MEDS: OXcarbazepine 300 MG TABLET 600 MG PO (21:55)
[2021-06-16 22:50] LABS: Glucose, Whole Blood 109 mg/dL (60-115)
[2021-06-16] MEDS: 0.9 % Sodium Chloride Flush 3 ML SYRINGE IVFLUSH (23:21)
[2021-06-17] VITALS (7 sets, daily range): BP systolic 109–148; BP diastolic 57–90; PULSE 67–76; RESP 16–18; TEMP 36.3–37.1; O2SAT 95–98
--- NOTE | 2021-06-17 | EEG_ITS ---
This is a 16-channel EEG with an EKG lead. The patient is reported awake, drowsy, and confused during the tracing. Background EEG rhythm is slow, amplitude mixed theta beta with no obvious abnormality suggestive of focal activity asymmetry or paroxysmal tendency. Cardiac lead does not reveal any significant abnormality. Photic stimulation and hyperventilation were not performed. IMPRESSION: Mild generalized slowing with no evidence of epileptic tendency. MD KATARINA Zuniga/RUSSELL / [id number]
--- NOTE | 2021-06-17 | ECG_ITS ---
Test Reason : chest pain Blood Pressure : / mmHG Vent. Rate : 076 BPM Atrial Rate : 076 BPM P-R Int : 180 ms QRS Dur : 088 ms QT Int : 412 ms P-R-T Axes : 048 006 044 degrees QTc Int : 463 ms Normal sinus rhythm Nonspecific ST abnormality Abnormal ECG When compared with ECG of 16-JUN-2021 13:59, No significant change was found Referred By: Stanley Richardson Electronically Signed By:WILMAN CAROLINA MD
[2021-06-17 01:17] LABS: Troponin-I High Sensitivity < 3.5 ng/L (<3.5-35.0)
--- NOTE | 2021-06-17 02:36 | PC.NURSE ---
0020; patient reported chest pain, describing it as pressure and sharp, nonradiating. Vital signs taken hr 73, bp 125/90, rr 18, oxygen 98% on room air. Dr. Richardson notified. ordered troponin, ekg; troponin came back <3.5, ekg results tigerconnected to Dr. Richardson.
[2021-06-17 07:17] LABS: Glucose, Whole Blood 135 mg/dL (60-115)
[2021-06-17 08:08] LABS: Osmolality, Serum 260 mosm/kg (281-305)
[2021-06-17 08:42] LABS: Anion Gap 10 (12-20); Blood Urea Nitrogen 6 mg/dL (9-16); Carbon Dioxide 23 mmol/L (22-29); Chloride 96 mmol/L (96-108); Creatinine Clr Calc Pharmacy 110.9; Estimated Glomerular Filt Rate > 60; Glucose Random 141 mg/dL (60-115); Sodium 125 mmol/L (135-145)
[2021-06-17] MEDS: Acetaminophen 325 MG TABLET 650 MG PO ×2 (09:38→15:58)
[2021-06-17] MEDS: Propranolol HCL 20 MG TABLET 60 MG PO ×2 (09:40→19:58)
[2021-06-17] MEDS: Famotidine 20 MG TABLET 40 MG PO ×2 (09:40→19:57)
[2021-06-17] MEDS: Benztropine Mesylate 1 MG TABLET PO ×2 (09:40→19:58)
[2021-06-17] MEDS: OXcarbazepine 300 MG TABLET 600 MG PO ×2 (09:40→19:57)
[2021-06-17] MEDS: Topiramate 25 MG TABLET 50 MG PO (09:40)
[2021-06-17] MEDS: 0.9 % Sodium Chloride Flush 3 ML SYRINGE IVFLUSH ×3 (09:40→20:02)
[2021-06-17] MEDS: polyethylene glycoL 3350 17 GM POWD.PACK PO (09:43)
[2021-06-17] MEDS: Fluticasone Propionate Nasal 16 GM SPRAY 1 SPRAY NOSTRIL-B ×2 (10:32→20:02)
[2021-06-17 11:24] LABS: Uric Acid 2.4 mg/dL (3.4-7.0)
--- NOTE | 2021-06-17 12:14 | P.CNNE_ITS ---
History of Present Illness Data of Consult Service Date: 06/17/21 Primary Care Provider: [facility] Reason for consult: Seizure disorder 61 years old man with underlying history of cognitive dysfunction of unknown etiology was brought from hospital after he fell few flights of stairs. Apparently he fell down passed out and was unresponsive for few seconds to a minute. Also, according to history, he had similar event few days ago when he passed out and also was jerking. He had no recollection of the events. He was not known to have seizure disorder. Review of Systems Review of Systems: No recent cold or flu-like illness. [facility] Past Medical History Medical History Bipolar disorder Cognitive developmental delay Diabetes HTN (hypertension) Impulse control disorder PTSD (post-traumatic stress disorder) Social History Social History Household Members: None Housing: Apartment Do you presently have visiting nurse or other home services: Yes ([facility] daily) Alcohol intake: never Patient Tobacco Use Status: Never used Tobacco Use of substances other than those prescribed or required for medical reasons: No Currently Displaying Signs/Symptoms of Drug Intoxication Withdrawal: No Have you been hit, kicked, punched, or otherwise hurt by someone within the past year? If so, by whom?: No Do you feel safe in your current relationship?: No Current Relationship Is there a partner from a previous relationship who is making you feel unsafe now?: No Are you made to feel afraid or neglected: No Advance Directives: No Advance Directives Information Provided: Yes Do you have thoughts of harming others: None Do you have a plan to hurt others: No Plan Recently lost weight without trying: No Nutrition Risks: No Nutritional Risk service: No Current occupational status: disabled Meds Allergies Allergy/AdvReac Type Severity Reaction Status Date / Time aspirin [ASPIRIN] Allergy Unknown NOSE BLEEDS Verified 11/18/20 14:53 haloperidol [From HALDOL] Allergy Unknown EYES ROLL Verified 11/18/20 14:53 ibuprofen [IBUPROFEN] Allergy Unknown NOSE BLEEDS Verified 11/18/20 14:53 lactose [LACTOSE] Allergy Unknown DIARRHEA Verified 11/18/20 14:53 Penicillins [PENICILLINS] Allergy Unknown NAUSEA Verified 11/18/20 14:53 pineapple [PINEAPPLE] Allergy Unknown ITCHING,LISETH Verified 11/18/20 14:53 H dairy Allergy Unknown Unknown Uncoded 11/18/20 14:53 pineapple Allergy Unknown Unknown Uncoded 11/18/20 14:53 SEASONAL ALLERGIES Allergy Unknown SNEEZING,FACE Uncoded 12/11/19 16:07 SWELLING Active Medications: Current Medications Acetaminophen (Acetaminophen 325 Mg Tablet) 650 mg PO Q6H PRN PRN Reason: Pain, Mild (Pain Scale 1-3) Last Admin: 06/17/21 09:38 Dose: 650 mg Documented by: Atorvastatin Calcium (Atorvastatin Calcium 10 Mg Tablet) 10 mg PO BEDTIME [facility] Benztropine Mesylate (Benztropine Mesylate 1 Mg Tablet) 1 mg PO BID [facility] Last Admin: 06/17/21 09:40 Dose: 1 mg Documented by: Chlorpromazine HCl (Chlorpromazine Hcl 100 Mg Tablet) 100 mg PO BID PRN PRN Reason: Agitation Chlorpromazine HCl (Chlorpromazine Hcl 100 Mg Tablet) 100 mg PO BEDTIME [facility] Last Admin: 06/16/21 21:55 Dose: 100 mg Documented by: Enoxaparin Sodium (Enoxaparin Sodium 40 Mg/0.4 Ml Syringe) 40 mg SUBCUT Q24H [facility] Last Admin: 06/16/21 21:54 Dose: 40 mg Documented by: Famotidine (Famotidine 20 Mg Tablet) 40 mg PO BID [facility] Last Admin: 06/17/21 09:40 Dose: 40 mg Documented by: Fluticasone Propionate (Fluticasone Propionate Nasal 16 Gm [place]) 1 spray NOSTRIL-B BID [facility] Last Admin: 06/17/21 10:32 Dose: 1 spray Documented by: Hydroxyzine HCl (Hydroxyzine Hcl 50 Mg Tablet) 50 mg PO TID PRN PRN Reason: anxiety or agitation Ondansetron HCl (Ondansetron Hcl 4 Mg/2 Ml Vial) 4 mg IVPUSH Q8H PRN PRN Reason: Nausea and Vomiting Oxcarbazepine (Oxcarbazepine 300 Mg Tablet) 600 mg PO BID [facility] Last Admin: 06/17/21 09:40 Dose: 600 mg Documented by: Pharmacy Consult (Consult Rx Perform Med Rec) 1 each MISCELLANE ONCE PRN PRN Reason: Consult order Polyethylene Glycol (Polyethylene Glycol 3350 17 Gm Powd.Pack) 17 gm PO DAILY [facility] Last Admin: 06/17/21 09:43 Dose: 17 gm Documented by: Propranolol HCl (Propranolol Hcl 20 Mg Tablet) 60 mg PO BID [facility]; Protocol Last Admin: 06/17/21 09:40 Dose: 60 mg Documented by: Sodium Chloride (0.9 % Sodium Chloride Flush 3 Ml Syringe) 3 ml IVFLUSH QSHIFT [facility] Last Admin: 06/17/21 09:40 Dose: 3 ml Documented by: Topiramate (Topiramate 25 Mg Tablet) 50 mg PO DAILY [facility] Last Admin: 06/17/21 09:40 Dose: 50 mg Documented by: Trazodone HCl (Trazodone Hcl 50 Mg Tablet) 150 mg PO BEDTIME PRN PRN Reason: insomnia Home Medications Medication Instructions Recorded Confirmed Last Taken Type atorvastatin 10 mg tablet 1 tab PO DAILY 11/18/20 06/16/21 Unknown History benztropine 1 mg tablet 1 tab PO BID 11/18/20 06/16/21 Unknown History chlorpromazine 100 mg tablet 100 - 200 mg PO BID PRN 11/18/20 06/16/21 Unknown History chlorpromazine 100 mg tablet 100 mg PO BEDTIME 11/18/20 06/16/21 Unknown History famotidine 40 mg tablet 1 tab PO BID 11/18/20 06/16/21 Unknown History hydroxyzine HCl 50 mg tablet 1 tab PO TID PRN 11/18/20 06/16/21 Unknown History lisinopril 5 mg tablet 1 tab PO DAILY 11/18/20 06/16/21 Unknown History propranolol 60 mg tablet 1 tab PO BID 11/18/20 06/16/21 Unknown History topiramate 50 mg tablet 1 tab PO DAILY 11/18/20 06/16/21 Unknown History acetaminophen 500 mg tablet 500 mg PO Q6H PRN 06/16/21 06/16/21 Unknown History albuterol sulfate 2.5 mg INHALATION Q4-6H PRN 06/16/21 06/16/21 Unknown History fluticasone propionate 50 1 spray INTRANASAL BID 06/16/21 06/16/21 Unknown History mcg/actuation nasal spray,suspension oxcarbazepine 600 mg tablet 600 mg PO BID 06/16/21 06/16/21 Unknown History polyethylene glycol 3350 17 gram 17 g PO DAILY 06/16/21 06/16/21 Unknown History oral powder packet (Miralax) trazodone 150 mg tablet 1 tab PO BEDTIME PRN 06/16/21 06/16/21 Unknown History Physical Exam Vital Signs: Vital Signs: Last Vital Signs Temp 97.6 F 06/17/21 07:49 Pulse 70 06/17/21 07:49 Resp 16 06/17/21 07:49 BP 139/78 06/17/21 07:49 Pulse Ox 95 06/17/21 07:49 BMI result Body Mass Index 24.3 Neuro: Other: Alert and awake with somewhat childish demeanor and dysphasic speech. He was able to answer simple questions. He did not know where he was. He was following simple commands. Face was symmetrical. Visual purdy are full. There was no obvious focal weakness. Deep tendon reflexes were trace with flexor plantars. Results Labs CBC & Chem 7: 06/16/21 13:52 06/17/21 08:00 Labs: Short CBC 06/16/21 Range/Units 13:52 WBC 10.3 (4.8-10.8) X10*3/uL Hgb 14.2 (14.0-18.0) g/dl Hct 40.5 L (42.0-52.0) % Plt Count 286 (160-400) X10*3/uL BMP 06/16/21 06/17/21 06/17/21 13:52 08:00 08:00 Sodium 126 L 125 L Cancelled Potassium 4.2 4.0 Cancelled Chloride 94 L 96 Cancelled Carbon Dioxide 25 23 Cancelled BUN 7 L 6 L Creatinine 0.95 0.74 Calcium 9.3 9.0 Liver Function 06/16/21 Range/Units 13:52 Total Bilirubin 0.6 (0.0-1.0) mg/dL Direct Bilirubin 0.2 (0.0-0.5) mg/dL AST 29 (5-37) U/L ALT 36 (0-40) U/L Alkaline Phosphatase 83 D (39-117) U/L Albumin 4.8 (3.5-5.0) g/dL Urine 06/16/21 Range/Units 16:35 Urine Color YELLOW Urine Appearance CLEAR Urine pH 7.0 (5.0-8.0) Ur Specific [place] <= 1.005 (1.005-1.025) Urine Protein NEG (NEG-TRACE) MG/DL Urine Glucose (UA) 100 H (NEG) MG/DL Noncontrast head CT did not reveal any significant abnormality other than mild diffuse atrophy. CTA of brain and neck did not reveal any significant stenosis. Assessment and Plan (1) Syncope: Status: Acute Probable seizure disorder in this 61 years old man with underlying cognitive dysfunction of unknown etiology. He had 2 episodes that might be seizures. His examination did not reveal any focal finding and his EEG did not reveal any epileptic tendency. CT scan of brain did not reveal any focal lesion. At this time I recommend discharging him and arranging an outpatient 48 hour ambulatory EEG for further definition. Procedures Date of Service Date of Service: 06/17/21
--- NOTE | 2021-06-17 12:32 | P.PNIM_ITS ---
Subjective Subjective Date of Service: 06/17/21 Interval History: patient complaining of localized mid chest pain, with no associated shortness of breath lightheadedness dizziness or diaphoresis, pain is constant, worse with breathing, patient wants to know if he can stay 1 more night at hospital otherwise offers no other acute symptoms of lightheadedness dizziness, admits he did not have a good night sleep, unable to express why has chronic dysphasic speech Review of Systems Review of Systems: Yes all other systems are reviewed and are negative Physical Exam Vital Signs: Vital Signs: Last Vital Signs Temp 97.6 F 06/17/21 07:49 Pulse 70 06/17/21 07:49 Resp 16 06/17/21 07:49 BP 139/78 06/17/21 07:49 Pulse Ox 95 06/17/21 07:49 BMI result Body Mass Index 24.3 Const: Other: General? awake ag rt, in no acute di stress. HEENT pupi ls equal round mauricio ctive to light and accommodation ant erior chest point tenderness mid faraz st over sternum N billy? supple no JVD . CVS? regular rat e rhythm, Respirat ory lungs clear to auscultation, no respiratory distre ss, no wheeze, no rhonchi. Gastroint estinal abdomen so ft, nontender, bow el sounds audible, no guarding , no rigidity. Extremit ies no edema. 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 dysphas ic speech, normal strength and tone. Skin no rash Objective Data Active Medications Acetaminophen (Acetaminophen 325 Mg Tablet) 650 mg PO Q6H PRN PRN Reason: Pain, Mild (Pain Scale 1-3) Last Admin: 06/17/21 09:38 Dose: 650 mg Documented by: LEXX Atorvastatin Calcium (Atorvastatin Calcium 10 Mg Tablet) 10 mg PO BEDTIME TAI Benztropine Mesylate (Benztropine Mesylate 1 Mg Tablet) 1 mg PO BID TAI Last Admin: 06/17/21 09:40 Dose: 1 mg Documented by: LEXX Chlorpromazine HCl (Chlorpromazine Hcl 100 Mg Tablet) 100 mg PO BID PRN PRN Reason: Agitation Chlorpromazine HCl (Chlorpromazine Hcl 100 Mg Tablet) 100 mg PO BEDTIME [facility] Last Admin: 06/16/21 21:55 Dose: 100 mg Documented by: FERMIN Enoxaparin Sodium (Enoxaparin Sodium 40 Mg/0.4 Ml Syringe) 40 mg SUBCUT Q24H [facility] Last Admin: 06/16/21 21:54 Dose: 40 mg Documented by: FERMIN Famotidine (Famotidine 20 Mg Tablet) 40 mg PO BID [facility] Last Admin: 06/17/21 09:40 Dose: 40 mg Documented by: LEXX Fluticasone Propionate (Fluticasone Propionate Nasal 16 Gm [place]) 1 spray NOSTRIL-B BID [facility] Last Admin: 06/17/21 10:32 Dose: 1 spray Documented by: LEXX Hydroxyzine HCl (Hydroxyzine Hcl 50 Mg Tablet) 50 mg PO TID PRN PRN Reason: anxiety or agitation Ondansetron HCl (Ondansetron Hcl 4 Mg/2 Ml Vial) 4 mg IVPUSH Q8H PRN PRN Reason: Nausea and Vomiting Oxcarbazepine (Oxcarbazepine 300 Mg Tablet) 600 mg PO BID [facility] Last Admin: 06/17/21 09:40 Dose: 600 mg Documented by: LEXX Pharmacy Consult (Consult Rx Perform Med Rec) 1 each MISCELLANE ONCE PRN PRN Reason: Consult order Polyethylene Glycol (Polyethylene Glycol 3350 17 Gm Powd.Pack) 17 gm PO DAILY [facility] Last Admin: 06/17/21 09:43 Dose: 17 gm Documented by: LEXX Propranolol HCl (Propranolol Hcl 20 Mg Tablet) 60 mg PO BID [facility]; Protocol Last Admin: 06/17/21 09:40 Dose: 60 mg Documented by: LEXX Sodium Chloride (0.9 % Sodium Chloride Flush 3 Ml Syringe) 3 ml IVFLUSH QSHIFT [facility] Last Admin: 06/17/21 09:40 Dose: 3 ml Documented by: LEXX Topiramate (Topiramate 25 Mg Tablet) 50 mg PO DAILY [facility] Last Admin: 06/17/21 09:40 Dose: 50 mg Documented by: LEXX Trazodone HCl (Trazodone Hcl 50 Mg Tablet) 150 mg PO BEDTIME PRN PRN Reason: insomnia Labs CBC & Chem 7: 06/16/21 13:52 06/17/21 08:00 Labs: Laboratory Results - last 24 hr 06/16/21 06/16/21 06/16/21 13:52 13:52 13:52 MCV 78.8 L MCH 27.6 MCHC 35.1 RDW 12.1 Plt Count 286 MPV 8.5 L Immature Gran % (Auto) 0.4 Neut % (Auto) 81.1 H Lymph % (Auto) 12.9 L [place] % (Auto) 4.6 Eos % (Auto) 0.8 Baso % (Auto) 0.2 Lymph # (Auto) 1.3 [place] # (Auto) 0.5 Eos # (Auto) 0.1 Baso # (Auto) 0.0 Abs Immat Gran (auto) 0.04 H Absolute Neuts (auto) 8.3 Absolute Nucleated RBC 0.000 Nucleated RBC % (auto) 0.0 PT INR Anion Gap 11 L Estim Creat Clear Calc 86.4 Estimated GFR > 60 POC Glucose Random Glucose 123 H Osmolality 260 L Lactic Acid Uric Acid Calcium 9.3 Magnesium 2.0 Total Bilirubin 0.6 Direct Bilirubin 0.2 AST 29 ALT 36 Alkaline Phosphatase 83 D Ammonia Total Protein 7.4 Albumin 4.8 Urine Color Urine Appearance Urine pH Ur Specific [place] Urine Protein Urine Glucose (UA) Urine Ketones Urine Blood Urine Nitrite Ur Leukocyte Esterase Urine Opiates Screen Urine Fentanyl Screen Ur Barbiturates Screen Ur Phencyclidine Scrn Ur Amphetamines Screen U Benzodiazepines Scrn Urine Cocaine Screen U Marijuana (THC) Screen Ethyl Alcohol COVID-19 (NATALIE) COVID-19 Clin Com Influenza Type A (NAMRATA) Influenza Type B (NAMRATA) Influenza A & B Note 06/16/21 06/16/21 06/16/21 13:53 13:53 13:53 MCV MCH MCHC RDW Plt Count MPV Immature Gran % (Auto) Neut % (Auto) Lymph % (Auto) [place] % (Auto) Eos % (Auto) Baso % (Auto) Lymph # (Auto) [place] # (Auto) Eos # (Auto) Baso # (Auto) Abs Immat Gran (auto) Absolute Neuts (auto) Absolute Nucleated RBC Nucleated RBC % (auto) PT INR Anion Gap Estim Creat Clear Calc Estimated GFR POC Glucose Random Glucose Osmolality Lactic Acid 1.6 Uric Acid Calcium Magnesium Total Bilirubin Direct Bilirubin AST ALT Alkaline Phosphatase Ammonia Total Protein Albumin Urine Color Urine Appearance Urine pH Ur Specific [place] Urine Protein Urine Glucose (UA) Urine Ketones Urine Blood Urine Nitrite Ur Leukocyte Esterase Urine Opiates Screen Urine Fentanyl Screen Ur Barbiturates Screen Ur Phencyclidine Scrn Ur Amphetamines Screen U Benzodiazepines Scrn Urine Cocaine Screen U Marijuana (THC) Screen Ethyl Alcohol < 10 COVID-19 (NATALIE) COVID-19 Clin Com Influenza Type A (NAMRATA) Negative Influenza Type B (NAMRATA) Negative Influenza A & B Note See Note 06/16/21 06/16/21 06/16/21 13:53 14:22 14:22 MCV MCH MCHC RDW Plt Count MPV Immature Gran % (Auto) Neut % (Auto) Lymph % (Auto) [place] % (Auto) Eos % (Auto) Baso % (Auto) Lymph # (Auto) [place] # (Auto) Eos # (Auto) Baso # (Auto) Abs Immat Gran (auto) Absolute Neuts (auto) Absolute Nucleated RBC Nucleated RBC % (auto) PT 12.1 INR 1.1 Anion Gap Estim Creat Clear Calc Estimated GFR POC Glucose Random Glucose Osmolality Lactic Acid Uric Acid Calcium Magnesium Total Bilirubin Direct Bilirubin AST ALT Alkaline Phosphatase Ammonia 32 Total Protein Albumin Urine Color Urine Appearance Urine pH Ur Specific [place] Urine Protein Urine Glucose (UA) Urine Ketones Urine Blood Urine Nitrite Ur Leukocyte Esterase Urine Opiates Screen Urine Fentanyl Screen Ur Barbiturates Screen Ur Phencyclidine Scrn Ur Amphetamines Screen U Benzodiazepines Scrn Urine Cocaine Screen U Marijuana (THC) Screen Ethyl Alcohol COVID-19 (NATALIE) Negative COVID-19 Clin Com See Note Influenza Type A (NAMRATA) Influenza Type B (NAMRATA) Influenza A & B Note 06/16/21 06/16/21 06/16/21 16:35 16:35 21:29 MCV MCH MCHC RDW Plt Count MPV Immature Gran % (Auto) Neut % (Auto) Lymph % (Auto) [place] % (Auto) Eos % (Auto) Baso % (Auto) Lymph # (Auto) [place] # (Auto) Eos # (Auto) Baso # (Auto) Abs Immat Gran (auto) Absolute Neuts (auto) Absolute Nucleated RBC Nucleated RBC % (auto) PT INR Anion Gap Estim Creat Clear Calc Estimated GFR POC Glucose 109 Random Glucose Osmolality Lactic Acid Uric Acid Calcium Magnesium Total Bilirubin Direct Bilirubin AST ALT Alkaline Phosphatase Ammonia Total Protein Albumin Urine Color YELLOW Urine Appearance CLEAR Urine pH 7.0 Ur Specific [place] <= 1.005 Urine Protein NEG Urine Glucose (UA) 100 H Urine Ketones NEG Urine Blood NEG Urine Nitrite NEG Ur Leukocyte Esterase NEG Urine Opiates Screen Not Detected Urine Fentanyl Screen Not Detected Ur Barbiturates Screen Not Detected Ur Phencyclidine Scrn Not Detected Ur Amphetamines Screen Not Detected U Benzodiazepines Scrn Not Detected Urine Cocaine Screen Not Detected U Marijuana (THC) Screen Not Detected Ethyl Alcohol COVID-19 (NATALIE) COVID-19 Clin Com Influenza Type A (NAMRATA) Influenza Type B (NAMRATA) Influenza A & B Note 06/17/21 06/17/21 06/17/21 07:08 08:00 08:00 MCV MCH MCHC RDW Plt Count MPV Immature Gran % (Auto) Neut % (Auto) Lymph % (Auto) [place] % (Auto) Eos % (Auto) Baso % (Auto) Lymph # (Auto) [place] # (Auto) Eos # (Auto) Baso # (Auto) Abs Immat Gran (auto) Absolute Neuts (auto) Absolute Nucleated RBC Nucleated RBC % (auto) PT INR Anion Gap 10 L Cancelled Estim Creat Clear Calc 110.9 Estimated GFR > 60 POC Glucose 135 H Random Glucose 141 H Osmolality Lactic Acid Uric Acid 2.4 L Cancelled Calcium 9.0 Magnesium Total Bilirubin Direct Bilirubin AST ALT Alkaline Phosphatase Ammonia Total Protein Albumin Urine Color Urine Appearance Urine pH Ur Specific [place] Urine Protein Urine Glucose (UA) Urine Ketones Urine Blood Urine Nitrite Ur Leukocyte Esterase Urine Opiates Screen Urine Fentanyl Screen Ur Barbiturates Screen Ur Phencyclidine Scrn Ur Amphetamines Screen U Benzodiazepines Scrn Urine Cocaine Screen U Marijuana (THC) Screen Ethyl Alcohol COVID-19 (NATALIE) COVID-19 Clin Com Influenza Type A (NAMRATA) Influenza Type B (NAMRATA) Influenza A & B Note Assessment and Plan (1) Syncope: Status: Acute (2) Acute hyponatremia: Status: Acute (3) Dizziness: Status: Acute Plan 61-year-old gentleman with past medical history significant for bipolar disorder, cognitive impairment, type 2 diabetes mellitus, hyperlipidemia presented to [facility] after of fall / syncope and noted to have hyponatremia. ? Syncope ? unknown etiology question related to seizure, normal orthostatic studies, EKG showed no acute abnormality as per mental health staff patient has remote history of seizures question patient recently weaned from Klonopin causing benzo withdrawal seizure ? orthostatic studies unremarkable, EKG showed no acute abnormality ? low-sodium but not significant? to cause? syncope ? no recurrent episode of seizure, tele monitor showed no arrhythmia, case discussed with Dr. Lyons an EEG showed no seizure-like activity he recommend outpatient 48 hour ambulatory EEG. ? hyponatremia likely related to Trileptal ? sodium 125,low serum osmolality 260, restrict fluid intake to 1200 mL, await Nephrology input, consult psychiatry to see if Trileptal can be replaced. localized anterior chest wall pain continue Tylenol as needed ? Type 2 diabetes mellitus stable blood sugars , on diabetic diet, patient not on home medication ? bipolar disorder with history of agitation continue home medications, Was placed on Trileptal last year after had an admission for Tegretol toxicity, obtain psych eval for medication adjustment. ? hypertension soft blood pressure this a.m. will hold Zestril and continue propranolol and follow BP closely. ? code status full code ?? ? DVT prophylaxis with Lovenox ? will need continued inpatient hospitalization due to persistent symptomatic hyponatremia. Quality Stroke Does the patient have a stroke diagnosis?: No VTE Prior VTE?: No VTE Risk Level:: Medical - moderate - high VTE Device Contraindication: Treatment Not Indicated VTE Drug Contraindication: N/A - Med Ordered
--- NOTE | 2021-06-17 12:42 | MHC.CM.PN ---
met with pt who is in a home managed by a pt gave howard as a person to contact [phone] called [phone] have not spoken with anyone as of yet pt reports hving a vna daily thru [facility] to manage meds he has a lock box pt says that a does everything for hime he will arrange own transportaion home
--- NOTE | 2021-06-17 14:36 | P.CNPS_ITS ---
History of Present Illness Date of Service: 06/17/2021 Chief Complaint: Syncope/ hyponatremia Reason for Consult: On Trileptal likely causing hyponatremia. Requesting physician: Roge Bhatt Discussed with referring provider: Yes Sources of Information: patient interviewed and chart reviewed HPI Narrative: Patient is a 60-year-old male with PMH of cognitive developmental delay, Type II diabetes, HTN, bipolar disorder. Lives at home, daily visits by VNA with [facility] for medications. Also supported by A, PRAVEEN, LISANDRAN. Presented to ED after fall down stairs, LOC, reports of dizziness. Labs revealed sodium level of 126. Patient was admitted for further care and management of hyponatremia and syncope. Patient was seen in this facility by Psychiatry consult Service in October of 2020, due to Depakote toxicity. At that time it was suggested that he be started with Trileptal 300 mg b.i.d. with titration, and instructions to monitor sodium, HGB, HCT. Recommendations also included continuing Depakote at that time, as titration took place, and possible clonidine as outpatient. A review of home medications revealed a recent increase in Trileptal on 06/03/2021, from a total daily dose of 900 mg to a total daily dose of 1200 mg. Upon entering room, patient was sitting up in bed. A it support engineer was present. Patient was pleasant upon approach, and agreeable to meeting with me. He also indicated that he would like his worker to stay present during interview. She reports that Trileptal was recently increased due to increased mood lability and agitation. She states that they have a follow-up appointment with outpatient provider this upcoming week, to assess patient and response to recent medication increase. Patient reports that he currently feels his mood is okay . No reports of SI/HI. His worker states that he has been weepy recently, and was weepy earlier today before I entered room. She also stated that he was slightly hitting his head earlier, and she believes it was out of frustration due to his level of physical discomfort right now. He did indicate that he had some localized mid- chest pain, and a slight headache (see hospitalist note, as he had reported these earlier as well. He stated that overall he felt okay . When asked if he felt safe, he stated ?yes ?. He stated that he would like to go home, but would prefer to stay here overnight first, and go home tomorrow. Past Psychiatric History: IP: History of several admissions, including [facility] in 2012, 2013. OP: Pt reports PRISCILLA, [facility], [place] all work with him. Outpatient psych provider is Babita Rodriguez. Trials: Several including Navane, Seroquel, Benztropine, Thorazine, Depakote, Atarax, Topamax, Propranolol, aripiprazole. Medical Evaluation Reviewed: Yes Personal & Social History: Patient disabled, lives at home with support in place, has daily VNA visits with medications kept in lock box. Has multiple service involvement, including PRISCILLA, SLOANE, [place]. Review of Systems Review of Systems PSYCH ROS: Denies anxiety, denies depression, denies irritability, denies anhedonia, denies mood lability, denies AH, VH, HI, SI. Constitutional: Reports no additional constitutional complaints and Reports headache(s) (Reports slight headache.) Eyes: Reports as per HPI Reports Normal hearing present and Reports headache(s) (Reports slight headache.) Cardiovascular: Reports as per HPI and Reports chest pain (Some mid-sternal localized discomfort.) Respiratory: Reports as per HPI Gastrointestinal: Reports as per HPI Genitourinary: Reports no additional male genitourinary complaints Musculoskeletal: Reports as per HPI Skin/Breast: Reports as per HPI Reports Normal hearing present and Reports headache(s) (Reports slight headache.) Psychiatric: Reports no additional psychiatric complaints and Reports as per HPI Endocrine: Reports no additional endocrine complaints and Reports as per HPI Hematologic/Lymphatic: Reports as per HPI Allergic/Immunologic: Reports as per HPI PMFSH Medical History (Updated 06/17/21 @ 15:16 by Doretha Vaughn) Bipolar disorder Cognitive developmental delay Diabetes HTN (hypertension) Impulse control disorder PTSD (post-traumatic stress disorder) Family History: Depression Social History: Currently lives alone he reports. 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 Disabled currently. Supported by his outreach team, has services from [facility], [facility]AVEEN in place. Substance History: beer occasionally Trauma History: Affirms Diagnostics Vital Signs (24Hr): Vital Signs - 24 hr 06/16/21 16:36 06/16/21 18:27 06/16/21 20:00 Temperature 98.5 F 98.1 F Pulse Rate 87 74 75 Respiratory Rate 18 16 14 Blood Pressure 131/80 136/85 127/62 Pulse Oximetry 100 98 96 06/16/21 23:53 06/17/21 00:25 06/17/21 03:04 Temperature 98.2 F 98.8 F Pulse Rate 68 73 68 Respiratory Rate 16 18 18 Blood Pressure 112/68 125/90 H 109/57 L Pulse Oximetry 96 98 98 06/17/21 07:49 06/17/21 12:00 Temperature 97.6 F 98.0 F Pulse Rate 70 72 Respiratory Rate 16 16 Blood Pressure 139/78 133/80 Pulse Oximetry 95 97 BMI result Body Mass Index 24.3 Labs Results: 06/16/21 13:52 06/17/21 08:00 Labs: Laboratory Results - last 48 hr 06/16/21 06/16/21 06/16/21 13:52 13:52 13:52 WBC 10.3 RBC 5.14 Hgb 14.2 Hct 40.5 L MCV 78.8 L MCH 27.6 MCHC 35.1 RDW 12.1 Plt Count 286 MPV 8.5 L Immature Gran % (Auto) 0.4 Neut % (Auto) 81.1 H Lymph % (Auto) 12.9 L [place] % (Auto) 4.6 Eos % (Auto) 0.8 Baso % (Auto) 0.2 Lymph # (Auto) 1.3 [place] # (Auto) 0.5 Eos # (Auto) 0.1 Baso # (Auto) 0.0 Abs Immat Gran (auto) 0.04 H Absolute Neuts (auto) 8.3 Absolute Nucleated RBC 0.000 Nucleated RBC % (auto) 0.0 PT INR Sodium 126 L Potassium 4.2 Chloride 94 L Carbon Dioxide 25 Anion Gap 11 L BUN 7 L Creatinine 0.95 Estim Creat Clear Calc 86.4 Estimated GFR > 60 POC Glucose Random Glucose 123 H Osmolality Lactic Acid Uric Acid Calcium 9.3 Magnesium 2.0 Total Bilirubin 0.6 Direct Bilirubin 0.2 AST 29 ALT 36 Alkaline Phosphatase 83 D Ammonia Troponin I High Sens < 3.5 Total Protein 7.4 Albumin 4.8 Urine Color Urine Appearance Urine pH Ur Specific [place] Urine Protein Urine Glucose (UA) Urine Ketones Urine Blood Urine Nitrite Ur Leukocyte Esterase Urine Opiates Screen Urine Fentanyl Screen Ur Barbiturates Screen Ur Phencyclidine Scrn Ur Amphetamines Screen U Benzodiazepines Scrn Urine Cocaine Screen U Marijuana (THC) Screen Ethyl Alcohol COVID-19 (NATALIE) COVID-19 Clin Com Influenza Type A (NAMRATA) Influenza Type B (NAMRATA) Influenza A & B Note 06/16/21 06/16/21 06/16/21 13:52 13:53 13:53 WBC RBC Hgb Hct MCV MCH MCHC RDW Plt Count MPV Immature Gran % (Auto) Neut % (Auto) Lymph % (Auto) [place] % (Auto) Eos % (Auto) Baso % (Auto) Lymph # (Auto) [place] # (Auto) Eos # (Auto) Baso # (Auto) Abs Immat Gran (auto) Absolute Neuts (auto) Absolute Nucleated RBC Nucleated RBC % (auto) PT INR Sodium Potassium Chloride Carbon Dioxide Anion Gap BUN Creatinine Estim Creat Clear Calc Estimated GFR POC Glucose Random Glucose Osmolality 260 L Lactic Acid 1.6 Uric Acid Calcium Magnesium Total Bilirubin Direct Bilirubin AST ALT Alkaline Phosphatase Ammonia Troponin I High Sens Total Protein Albumin Urine Color Urine Appearance Urine pH Ur Specific [place] Urine Protein Urine Glucose (UA) Urine Ketones Urine Blood Urine Nitrite Ur Leukocyte Esterase Urine Opiates Screen Urine Fentanyl Screen Ur Barbiturates Screen Ur Phencyclidine Scrn Ur Amphetamines Screen U Benzodiazepines Scrn Urine Cocaine Screen U Marijuana (THC) Screen Ethyl Alcohol < 10 COVID-19 (NATALIE) COVID-19 Clin Com Influenza Type A (NAMRATA) Influenza Type B (NAMRATA) Influenza A & B Note 06/16/21 06/16/21 06/16/21 13:53 13:53 14:22 WBC RBC Hgb Hct MCV MCH MCHC RDW Plt Count MPV Immature Gran % (Auto) Neut % (Auto) Lymph % (Auto) [place] % (Auto) Eos % (Auto) Baso % (Auto) Lymph # (Auto) [place] # (Auto) Eos # (Auto) Baso # (Auto) Abs Immat Gran (auto) Absolute Neuts (auto) Absolute Nucleated RBC Nucleated RBC % (auto) PT 12.1 INR 1.1 Sodium Potassium Chloride Carbon Dioxide Anion Gap BUN Creatinine Estim Creat Clear Calc Estimated GFR POC Glucose Random Glucose Osmolality Lactic Acid Uric Acid Calcium Magnesium Total Bilirubin Direct Bilirubin AST ALT Alkaline Phosphatase Ammonia Troponin I High Sens Total Protein Albumin Urine Color Urine Appearance Urine pH Ur Specific [place] Urine Protein Urine Glucose (UA) Urine Ketones Urine Blood Urine Nitrite Ur Leukocyte Esterase Urine Opiates Screen Urine Fentanyl Screen Ur Barbiturates Screen Ur Phencyclidine Scrn Ur Amphetamines Screen U Benzodiazepines Scrn Urine Cocaine Screen U Marijuana (THC) Screen Ethyl Alcohol COVID-19 (NATALIE) Negative COVID-19 Clin Com See Note Influenza Type A (NAMRATA) Negative Influenza Type B (NAMRATA) Negative Influenza A & B Note See Note 06/16/21 06/16/21 06/16/21 14:22 16:35 16:35 WBC RBC Hgb Hct MCV MCH MCHC RDW Plt Count MPV Immature Gran % (Auto) Neut % (Auto) Lymph % (Auto) [place] % (Auto) Eos % (Auto) Baso % (Auto) Lymph # (Auto) [place] # (Auto) Eos # (Auto) Baso # (Auto) Abs Immat Gran (auto) Absolute Neuts (auto) Absolute Nucleated RBC Nucleated RBC % (auto) PT INR Sodium Potassium Chloride Carbon Dioxide Anion Gap BUN Creatinine Estim Creat Clear Calc Estimated GFR POC Glucose Random Glucose Osmolality Lactic Acid Uric Acid Calcium Magnesium Total Bilirubin Direct Bilirubin AST ALT Alkaline Phosphatase Ammonia 32 Troponin I High Sens Total Protein Albumin Urine Color YELLOW Urine Appearance CLEAR Urine pH 7.0 Ur Specific [place] <= 1.005 Urine Protein NEG Urine Glucose (UA) 100 H Urine Ketones NEG Urine Blood NEG Urine Nitrite NEG Ur Leukocyte Esterase NEG Urine Opiates Screen Not Detected Urine Fentanyl Screen Not Detected Ur Barbiturates Screen Not Detected Ur Phencyclidine Scrn Not Detected Ur Amphetamines Screen Not Detected U Benzodiazepines Scrn Not Detected Urine Cocaine Screen Not Detected U Marijuana (THC) Screen Not Detected Ethyl Alcohol COVID-19 (NATALIE) COVID-19 Clin Com Influenza Type A (NAMRATA) Influenza Type B (NAMRATA) Influenza A & B Note 06/16/21 06/17/21 06/17/21 21:29 00:42 07:08 WBC RBC Hgb Hct MCV MCH MCHC RDW Plt Count MPV Immature Gran % (Auto) Neut % (Auto) Lymph % (Auto) [place] % (Auto) Eos % (Auto) Baso % (Auto) Lymph # (Auto) [place] # (Auto) Eos # (Auto) Baso # (Auto) Abs Immat Gran (auto) Absolute Neuts (auto) Absolute Nucleated RBC Nucleated RBC % (auto) PT INR Sodium Potassium Chloride Carbon Dioxide Anion Gap BUN Creatinine Estim Creat Clear Calc Estimated GFR POC Glucose 109 135 H Random Glucose Osmolality Lactic Acid Uric Acid Calcium Magnesium Total Bilirubin Direct Bilirubin AST ALT Alkaline Phosphatase Ammonia Troponin I High Sens < 3.5 Total Protein Albumin Urine Color Urine Appearance Urine pH Ur Specific [place] Urine Protein Urine Glucose (UA) Urine Ketones Urine Blood Urine Nitrite Ur Leukocyte Esterase Urine Opiates Screen Urine Fentanyl Screen Ur Barbiturates Screen Ur Phencyclidine Scrn Ur Amphetamines Screen U Benzodiazepines Scrn Urine Cocaine Screen U Marijuana (THC) Screen Ethyl Alcohol COVID-19 (NATALIE) COVID-19 Clin Com Influenza Type A (NAMRATA) Influenza Type B (NAMRATA) Influenza A & B Note 06/17/21 06/17/21 08:00 08:00 WBC RBC Hgb Hct MCV MCH MCHC RDW Plt Count MPV Immature Gran % (Auto) Neut % (Auto) Lymph % (Auto) [place] % (Auto) Eos % (Auto) Baso % (Auto) Lymph # (Auto) [place] # (Auto) Eos # (Auto) Baso # (Auto) Abs Immat Gran (auto) Absolute Neuts (auto) Absolute Nucleated RBC Nucleated RBC % (auto) PT INR Sodium 125 L Cancelled Potassium 4.0 Cancelled Chloride 96 Cancelled Carbon Dioxide 23 Cancelled Anion Gap 10 L Cancelled BUN 6 L Creatinine 0.74 Estim Creat Clear Calc 110.9 Estimated GFR > 60 POC Glucose Random Glucose 141 H Osmolality Lactic Acid Uric Acid 2.4 L Cancelled Calcium 9.0 Magnesium Total Bilirubin Direct Bilirubin AST ALT Alkaline Phosphatase Ammonia Troponin I High Sens Total Protein Albumin Urine Color Urine Appearance Urine pH Ur Specific [place] Urine Protein Urine Glucose (UA) Urine Ketones Urine Blood Urine Nitrite Ur Leukocyte Esterase Urine Opiates Screen Urine Fentanyl Screen Ur Barbiturates Screen Ur Phencyclidine Scrn Ur Amphetamines Screen U Benzodiazepines Scrn Urine Cocaine Screen U Marijuana (THC) Screen Ethyl Alcohol COVID-19 (NATALIE) COVID-19 Clin Com Influenza Type A (NAMRATA) Influenza Type B (NAMRATA) Influenza A & B Note Imaging Radiology Impressions: ITS Impressions Cervical Spine CT 06/16/21 13:50 IMPRESSION: 1. No acute intracranial process seen. 2. No acute fracture, dislocation or subluxation in the cervical spine. There are degenerative facet joint arthropathy as described above. Head CT 06/16/21 13:50 IMPRESSION: 1. No acute intracranial process seen. 2. No acute fracture, dislocation or subluxation in the cervical spine. There are degenerative facet joint arthropathy as described above. Chest X-Ray 06/16/21 14:48 IMPRESSION: Hypoinflation with patchy left basilar atelectasis versus early infiltrate. Lumbar Spine X-Ray 06/16/21 14:48 IMPRESSION: Mild multilevel degenerative disc disease, increased when compared to the radiographs from 2006. No acute fracture or subluxation. Moderate stool burden. Head/Neck CTA 06/16/21 16:35 IMPRESSION: 1. There are no acute bleeds or territorial infarcts. There are no masses or areas of abnormal enhancement. There is mild diffuse volume loss. 2. There are no flow-limiting stenoses in the neck circulation. There is no significant atheromatous disease. 3. Intracranially there are no focal stenoses, aneurysms or vascular malformations. 4. There is a 4 mm nodule in the right upper lobe of the lung, which appears calcified. Various management parameters for solitary pulmonary nodules are in the literature. According to the UPDATED 2017 Fleischner Society recommendations, the advised follow-up imaging for solid nodules < 6 mm is: LOW RISK PATIENT: No routine follow-up. HIGH RISK PATIENT: Optional CT at 12 months. Reference: Guidelines for Management of Incidental Pulmonary Nodules Detected on CT Images: From the Fleischner Society 2017. Mental Status Exam Mental Status Exam Narrative: Well-developed, well-nourished male, in NAD. No abnormal movements noted, no tics or tremors, no lability or constricted affect observed. Patient appeared to be sitting comfortably in bed. Patient Appearance: Well Grooomed and Appropriate Patient Orientation: Person, Place, Time and Situation Level of Consciousness: Awake and Alert Patient Behavior: Appropriate, Cooperative and Good Eye Contact Mood Description: Calm and Appropriate Affect Description: Appropriate and Cheerful Patient Cognition Impaired: No Ability to Follow Directions: Good Speech Pattern: Clear and Appropriate Memory Description: Intact Hallucinations: None Delusions: Not Present Thought Process: Intact and Goal Oriented Thought Content: positive for Intact, positive for [place] and positive for G oal Oriented (wants to go home tomorrow.) Judgement: Good Medications Medications Current Medications Acetaminophen (Acetaminophen 325 Mg Tablet) 650 mg PO Q6H PRN PRN Reason: Pain, Mild (Pain Scale 1-3) Last Admin: 06/17/21 09:38 Dose: 650 mg Documented by: Atorvastatin Calcium (Atorvastatin Calcium 10 Mg Tablet) 10 mg PO BEDTIME [facility] Benztropine Mesylate (Benztropine Mesylate 1 Mg Tablet) 1 mg PO BID [facility] Last Admin: 06/17/21 09:40 Dose: 1 mg Documented by: Chlorpromazine HCl (Chlorpromazine Hcl 100 Mg Tablet) 100 mg PO BID PRN PRN Reason: Agitation Chlorpromazine HCl (Chlorpromazine Hcl 100 Mg Tablet) 100 mg PO BEDTIME [facility] Last Admin: 06/16/21 21:55 Dose: 100 mg Documented by: Enoxaparin Sodium (Enoxaparin Sodium 40 Mg/0.4 Ml Syringe) 40 mg SUBCUT Q24H [facility] Last Admin: 06/16/21 21:54 Dose: 40 mg Documented by: Famotidine (Famotidine 20 Mg Tablet) 40 mg PO BID [facility] Last Admin: 06/17/21 09:40 Dose: 40 mg Documented by: Fluticasone Propionate (Fluticasone Propionate Nasal 16 Gm [place]) 1 spray NOSTRIL-B BID [facility] Last Admin: 06/17/21 10:32 Dose: 1 spray Documented by: Hydroxyzine HCl (Hydroxyzine Hcl 50 Mg Tablet) 50 mg PO TID PRN PRN Reason: anxiety or agitation Ondansetron HCl (Ondansetron Hcl 4 Mg/2 Ml Vial) 4 mg IVPUSH Q8H PRN PRN Reason: Nausea and Vomiting Oxcarbazepine (Oxcarbazepine 300 Mg Tablet) 600 mg PO BID [facility] Last Admin: 06/17/21 09:40 Dose: 600 mg Documented by: Pharmacy Consult (Consult Rx Perform Med Rec) 1 each MISCELLANE ONCE PRN PRN Reason: Consult order Polyethylene Glycol (Polyethylene Glycol 3350 17 Gm Powd.Pack) 17 gm PO DAILY [facility] Last Admin: 06/17/21 09:43 Dose: 17 gm Documented by: Propranolol HCl (Propranolol Hcl 20 Mg Tablet) 60 mg PO BID [facility]; Protocol Last Admin: 06/17/21 09:40 Dose: 60 mg Documented by: Sodium Chloride (0.9 % Sodium Chloride Flush 3 Ml Syringe) 3 ml IVFLUSH QSHIFT [facility] Last Admin: 06/17/21 09:40 Dose: 3 ml Documented by: Topiramate (Topiramate 25 Mg Tablet) 50 mg PO DAILY [facility] Last Admin: 06/17/21 09:40 Dose: 50 mg Documented by: Trazodone HCl (Trazodone Hcl 50 Mg Tablet) 150 mg PO BEDTIME PRN PRN Reason: insomnia Allergies Allergies Allergy/AdvReac Type Severity Reaction Status Date / Time aspirin [ASPIRIN] Allergy Unknown NOSE BLEEDS Verified 11/18/20 14:53 haloperidol [From HALDOL] Allergy Unknown EYES ROLL Verified 11/18/20 14:53 ibuprofen [IBUPROFEN] Allergy Unknown NOSE BLEEDS Verified 11/18/20 14:53 lactose [LACTOSE] Allergy Unknown DIARRHEA Verified 11/18/20 14:53 Penicillins [PENICILLINS] Allergy Unknown NAUSEA Verified 11/18/20 14:53 pineapple [PINEAPPLE] Allergy Unknown ITCHING,LISETH Verified 11/18/20 14:53 H dairy Allergy Unknown Unknown Uncoded 11/18/20 14:53 pineapple Allergy Unknown Unknown Uncoded 11/18/20 14:53 SEASONAL ALLERGIES Allergy Unknown SNEEZING,FACE Uncoded 12/11/19 16:07 SWELLING Assessment & Plan Assessment & Plan (1) Acute hyponatremia: Status: Acute Code(s): E87.1 - Hypo-osmolality and hyponatremia (2) Bipolar disorder: Status: Acute Code(s): F31.9 - Bipolar disorder, unspecified Assessment and Plan: Patient has longstanding history of bipolar disorder. Had recently had Trileptal medication increase on 06/03/2021 due to increased mood lability and agitation in the home. However today patient does not display any type of agitation or dysregulated mood, no lability noted. He does have hyponatremia, with possibility that Trileptal, especially increased recent dosing, could be a causative factor. Plan Although patient's Trileptal was recently increased, it had been done so due to labile mood and agitation. If he is being discharged within the next day, would recommend keeping Trileptal dose as is, with instructions to his staff that his outpatient provider be contacted, as she may wish to titrate down the dose or switch to another mood stabilizer, as outpatient. I have shared this with provider Dr. Bhatt. Thank you I spent minutes with the patient and/or on the patient floor today, greater than?50% of which was spent counseling/coordinating care. Patient educated on: diagnosis, medication risk/benefits, therapeutic strategies and medical condition Informed Consent: understands
[2021-06-17] MEDS: Urea 15 GM POWDER PO (15:11)
[2021-06-17 16:23] LABS: Glucose, Whole Blood 141 mg/dL (60-115)
[2021-06-17] MEDS: Enoxaparin Sodium 40 MG/0.4 ML SYRINGE SUBCUT (18:23)
[2021-06-17] MEDS: Sodium Chloride Tab 1 GM TABLET PO (18:30)
[2021-06-17 19:16] LABS: Creatinine Urine 45.43 mg/dL
[2021-06-17] MEDS: chlorproMAZINE HCl 100 MG TABLET PO (19:57)
[2021-06-17] MEDS: Atorvastatin Calcium 10 MG TABLET PO (19:57)
[2021-06-17 20:09] LABS: Glucose, Whole Blood 140 mg/dL (60-115)
[2021-06-17 20:28] LABS: Anion Gap 10 (12-20); Blood Urea Nitrogen 16 mg/dL (9-16); Calcium 9.2 mg/dL (8.4-10.2); Carbon Dioxide 24 mmol/L (22-29); Chloride 97 mmol/L (96-108); Estimated Glomerular Filt Rate > 60; Glucose Random 153 mg/dL (60-115); Potassium 3.8 mmol/L (3.3-5.1); Sodium 127 mmol/L (135-145)
[2021-06-18 03:50] VITALS: BP 138/76; PULSE 76; RESP 20; TEMP 36.8; O2SAT 96
[2021-06-18] MEDS: Acetaminophen 325 MG TABLET 650 MG PO (06:17)
[2021-06-18 06:49] LABS: Anion Gap 14 (12-20); Blood Urea Nitrogen 11 mg/dL (9-16); Calcium 9.1 mg/dL (8.4-10.2); Carbon Dioxide 22 mmol/L (22-29); Chloride 99 mmol/L (96-108); Creatinine Clr Calc Pharmacy 110.9; Estimated Glomerular Filt Rate > 60; Glucose Random 116 mg/dL (60-115); Potassium 4.6 mmol/L (3.3-5.1); Sodium 130 mmol/L (135-145)
[2021-06-18 07:08] VITALS: BP 131/80; PULSE 70; RESP 18; TEMP 36.7; O2SAT 96
[2021-06-18 07:15] LABS: Osmolality, Serum 262 mosm/kg (281-305)
[2021-06-18 07:29] LABS: Glucose, Whole Blood 175 mg/dL (60-115)
[2021-06-18 07:57] LABS: Cortisol Random 16.5 ug/dL
[2021-06-18] MEDS: 0.9 % Sodium Chloride Flush 3 ML SYRINGE IVFLUSH (08:19)
[2021-06-18] MEDS: Topiramate 25 MG TABLET 50 MG PO (08:19)
[2021-06-18] MEDS: OXcarbazepine 300 MG TABLET 600 MG PO (08:19)
[2021-06-18] MEDS: Benztropine Mesylate 1 MG TABLET PO (08:19)
[2021-06-18] MEDS: Famotidine 20 MG TABLET 40 MG PO (08:19)
[2021-06-18] MEDS: Propranolol HCL 20 MG TABLET 60 MG PO (08:19)
[2021-06-18] MEDS: polyethylene glycoL 3350 17 GM POWD.PACK PO (08:20)
[2021-06-18] MEDS: Fluticasone Propionate Nasal 16 GM SPRAY 1 SPRAY NOSTRIL-B (08:29)
[2021-06-18 11:04] VITALS: BP 131/81; PULSE 71; RESP 18; TEMP 36.3; O2SAT 94
[2021-06-18 11:28] LABS: Glucose, Whole Blood 121 mg/dL (60-115)
--- NOTE | 2021-06-18 14:31 | P.DS_ITS ---
DS: Providers Provider Date of Service: 06/18/21 Date of admission: 06/16/21 17:55 Primary care physician: [facility] Consults: 06/16/21 18:01 Consult to Neurology Routine Consulting Provider: [facility] Reason for consultation: syncope ? seizure Has provider been notified: No 06/17/21 07:49 Consult to Nephrology Routine Consulting Provider: Salvador Paris Reason for consultation: hyponatremia Has provider been notified: No 06/17/21 12:33 Consult to Psychiatry Routine Consulting Provider: [facility] Reason for consultation: on trileptal likley causing hyponatremia Has provider been notified: No DS: Diagnosis Discharge Diagnosis (1) Acute hyponatremia: Status: Acute (2) Bipolar disorder: Status: Acute DS: Summary Hospital Course Hospital Course: Chief Complaint:? syncope ?60-year-old gentleman with past medical history significant for cognitive developmental delay, type 2 diabetes mellitus, hypertension, bipolar disorder lives at home with daily visit by? [facility], was walking with A staff into his apartment down a flight of stairs when he fell down 4 steps, staff is unsure if he had loss of consciousness since patient was not responding when they called his name, later patient became more awake and conscious and admitted that he was dizzy prior to fall and he has been dizzy for last couple days, patient is a poor historian , patient is friend is at bedside and informed that patient had a fall at her home 5 6 days ago at that time he also lost his consciousness, friend noticed today that patient was having jerky movements of upper extremities and also feels that his is speech is more impaired than baseline dysarthria, patient is tearful crying because he does not want to stay in the h ospital he is complaining of right-sided chest pain, denies associated fever chills no shortness of breath no palpitations, recently according to girlfriend he has been weaned down his Klonopin, that likely he stopped 1 week ago previously was taking 1 tablet twice daily, of note patient had similar presentation last year and was noted to have elevated valproic acid level since then his valproic acid has been discontinued, lab work today showed a sodium of 126, lactic acid of 1.6, normal urine and analysis and imaging studies of C- spine, CTA head and neck, chest x-ray and lumbar spine x-rays. patient is being admitted to [facility] with a diagnosis of hyponatremia and syncope possible related to seizure. hospital course Syncope, unknown etiology,normal orthostatic studies, EKG showed no acute abnormality, normal orthostatic studies, patient had no recurrent symptoms of lightheadedness or dizziness seen by Neurology EEG obtained that showed no seizure-like activity neurologist recommend outpatient 48 hour ambulatory EEG. ? Hyponatremia likely related to Trileptal, patient started on Trileptal last year and dose has been gradually up titrated to 600 mg b.i.d.?low serum osmo lality 260, sodium improved to 130 with sodium chloride tablets and urea 15 gm, recommend to continue urea 15 g daily and follow BMP in 1 week, recommend to transition to other anti psychiatric medications to avoid hyponatremia. ?Type 2 diabetes mellitus stable blood sugars , continue diabetic diet and home medication bipolar disorder with history of agitation continue home medications,? Was placed on Trileptal last year after had an? admission for Tegretol toxicity, patient seen by psychiatrist they recommend to continue current medication and close outpatient follow-up with Psychiatry Hypertension? soft blood pressure recommend to stop Zestril and continue propranolol Time Spent with Patient Time attestation: Total time spent providing and/or coordinating discharge services: Discharge coordination time: Greater than 30 minutes Quality: Stroke Does the patient have a stroke diagnosis?: No Physical Exam Vital Signs: Vital Signs: Last Vital Signs Temp 97.4 F 06/18/21 11:04 Pulse 71 06/18/21 11:04 Resp 18 06/18/21 11:04 BP 131/81 06/18/21 11:04 Pulse Ox 94 06/18/21 11:04 BMI result Body Mass Index 24.3 Const: Other: General? awake alert, no acute distress. HEENT pupils equal round reactive to light and accommodation Neck? supple no JVD. CVS? regular rate rhythm, Respiratory lungs clear to auscultation, no respiratory distress, no wheeze, no rhonchi. Gastrointestinal abdomen soft, nontender, bowel sounds audible, no guarding , no rigidity. Extremities no edema. is status post amputation of left little finger, contraction deformity of ring fingers both hands Neuro? dysphasic speech, normal strength and tone. Skin no rash DS: Data Data Completed and Pending Labs on day of discharge: Laboratory Results - last 24 hr 06/17/21 06/17/21 06/17/21 08:00 16:11 18:49 Sodium Potassium Chloride Carbon Dioxide Anion Gap BUN Creatinine Estim Creat Clear Calc Estimated GFR POC Glucose 141 H Random Glucose Osmolality 262 L Calcium Random Cortisol Ur Random Sodium 60.0 Urine Creatinine 45.43 06/17/21 06/17/21 06/18/21 19:50 20:05 06:25 Sodium 127 L Potassium 3.8 Chloride 97 Carbon Dioxide 24 Anion Gap 10 L BUN 16 D Creatinine 0.76 Estim Creat Clear Calc 108.0 Estimated GFR > 60 POC Glucose 140 H Random Glucose 153 H Osmolality Calcium 9.2 Random Cortisol 16.5 Ur Random Sodium Urine Creatinine 06/18/21 06/18/21 06/18/21 06:25 07:11 11:07 Sodium 130 L Potassium 4.6 D Chloride 99 Carbon Dioxide 22 Anion Gap 14 BUN 11 Creatinine 0.74 Estim Creat Clear Calc 110.9 Estimated GFR > 60 POC Glucose 175 H 121 H Random Glucose 116 H Osmolality Calcium 9.1 Random Cortisol Ur Random Sodium Urine Creatinine Discharge Plan Discharge Patient Disposition: Home Health Service Discharge Diagnosis: hyponatremia syncope bipolar disorder Referrals: [facility] [Outside] - 1 Week Center,[facility] [Primary Care Provider] - 1 Week Discharge Medications: New urea 15 gram powder in packet 1 packet PO DAILY Qty: 8 2RF Continued atorvastatin 10 mg tablet 1 tab PO DAILY 0RF chlorpromazine 100 mg tablet 100 mg PO BEDTIME 0RF famotidine 40 mg tablet 1 tab PO BID 0RF propranolol 60 mg tablet 1 tab PO BID 0RF hydroxyzine HCl 50 mg tablet 1 tab PO TID PRN (Reason: anxiety or agitation) 0RF benztropine 1 mg tablet 1 tab PO BID 0RF topiramate 50 mg tablet 1 tab PO DAILY 0RF chlorpromazine 100 mg tablet 100 - 200 mg PO BID PRN (Reason: Agitation) 0RF trazodone 150 mg tablet 1 tab PO BEDTIME PRN (Reason: insomnia) 0RF oxcarbazepine 600 mg tablet 600 mg PO BID 0RF albuterol sulfate 2.5 mg /3 mL (0.083 %) Solution For Nebulization 2.5 mg INHALATION Q4-6H PRN (Reason: Wheezing) 0RF polyethylene glycol 3350 [Miralax] 17 gram Powder In Packet 17 g PO DAILY 0RF acetaminophen 500 mg Tablet 500 mg PO Q6H PRN (Reason: Pain) 0RF fluticasone propionate 50 mcg/actuation Wilson,Suspension 1 spray INTRANASAL BID 0RF Rx Instructions: administer into each nostril Discontinued lisinopril 5 mg tablet 1 tab PO DAILY 0RF Discharge Orders: Discharge Order (Routine); Ordered 06/18/21 Ordered By: Roge Bhatt Diet: advance to usual diet Activity on Discharge: As tolerated Stand Alone Forms: Patient Portal Discharge page Other Ambulatory Orders: Basic Metabolic Panel (Routine) Timeframe: [id number] Facility: [facility] - Location: Laboratory Ordered By: Roge Bhatt Care Plan Goals: hyponatremia sodium improved to 130 take urea 15 g daily, follow-up with Psychiatry to wean Trileptal, repeat BMP in 1 week stop taking Zestril due to soft blood pressure syncope unknown etiology EEG showed no seizure like activity Dr. Lyons from Neurology recommend 48 hour ambulatory EEG, please follow-up with PCP to arrange for EEG Health Concerns: take all home medications as before except stop lisinopril Plan of Treatment: follow-up with PCP and Psychiatry Assessment: per discharge plan Discharge Date/Time: 06/18/21 17:15
--- NOTE | 2021-06-18 14:36 | MHC.CM.PN ---
Patient has been medically cleared for dc to home today, with services. Patient was active with [facility], who has been notified of today's dc via [facility]. Last IMM addressed yesterday.
--- NOTE | 2021-06-18 14:40 | PM.PNNEP ---
Subjective Subjective Date of Service: 06/18/21 Interval history: patientanxious to go home Physical Exam Vital Signs: Vital Signs: Last Vital Signs Temp 97.4 F 06/18/21 11:04 Pulse 71 06/18/21 11:04 Resp 18 06/18/21 11:04 BP 131/81 06/18/21 11:04 Pulse Ox 94 06/18/21 11:04 BMI result Body Mass Index 24.3 Other: General? awake alert, no acute distress. HEENT pupils equal round reactive to light and accommodation Neck? supple no JVD. CVS? regular rate rhythm, Respiratory lungs clear to auscultation, no respiratory distress, no wheeze, no rhonchi. Gastrointestinal abdomen soft, nontender, bowel sounds audible, no guarding , no rigidity. Extremities no edema. is status post amputation of left little finger, contraction deformity of ring fingers both hands Neuro? dysphasic speech, normal strength and tone. Skin no rash Objective Data Labs CBC & Chem 7: 06/16/21 13:52 06/18/21 06:25 Labs: Laboratory Results - last 24 hr 06/17/21 06/17/21 06/17/21 08:00 16:11 18:49 Sodium Potassium Chloride Carbon Dioxide Anion Gap BUN Creatinine Estim Creat Clear Calc Estimated GFR POC Glucose 141 H Random Glucose Osmolality 262 L Calcium Random Cortisol Ur Random Sodium 60.0 Urine Creatinine 45.43 06/17/21 06/17/21 06/18/21 19:50 20:05 06:25 Sodium 127 L Potassium 3.8 Chloride 97 Carbon Dioxide 24 Anion Gap 10 L BUN 16 D Creatinine 0.76 Estim Creat Clear Calc 108.0 Estimated GFR > 60 POC Glucose 140 H Random Glucose 153 H Osmolality Calcium 9.2 Random Cortisol 16.5 Ur Random Sodium Urine Creatinine 06/18/21 06/18/21 06/18/21 06:25 07:11 11:07 Sodium 130 L Potassium 4.6 D Chloride 99 Carbon Dioxide 22 Anion Gap 14 BUN 11 Creatinine 0.74 Estim Creat Clear Calc 110.9 Estimated GFR > 60 POC Glucose 175 H 121 H Random Glucose 116 H Osmolality Calcium 9.1 Random Cortisol Ur Random Sodium Urine Creatinine Procedures Date of Service Date of Service: 06/18/21 Assessment & Plan Assessment and plan (1) Acute hyponatremia: Status: Acute (2) Bipolar disorder: Status: Acute Plan 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
[2021-06-18 15:39] VITALS: BP 128/86; PULSE 78; RESP 18; TEMP 37.2; O2SAT 98
--- NOTE | 2021-06-20 14:04 | CONS_ITS ---
DATE OF SERVICE: 06/17/2021 REASON FOR CONSULTATION: Consult requested by the medical team to evaluate and help in management of patient with hyponatremia. HISTORY OF PRESENT ILLNESS: The patient is a 61-year-old gentleman with past medical history of cognitive developmental delay, type 2 diabetes mellitus, hypertension, bipolar disorder, who lives at home with daily visits by [facility], who presented to the hospital after he had a syncopal episode. It is unsure if he had loss of consciousness since the patient did not recognize after he had a fall. He is a poor historian. Most of the history was obtained from the patient's medical record. Apparently, he had some jerky movements in upper extremity. He had some right-sided chest pain. Denied any fever, chills. The patient was on Klonopin. He had similar presentation a year ago. Lab work showed his sodium level was 126 and repeat lab today was sodium of 125. Lactic acid level was 1.6. C-spine and CT of the head and neck was negative. He was admitted to the hospital for further evaluation and management. REVIEW OF SYSTEMS: Difficult to obtain, but he is able to follow simple commands. PAST MEDICAL HISTORY: History of bipolar disorder, cognitive developmental delay, diabetes, hypertension, impulse control disorder, posttraumatic stress disorder. PERSONAL AND SOCIAL HISTORY: The patient lives at home. He is developmentally delayed. Never a smoker. Does not drink alcohol or use drugs. Lives at home with VNA support. ALLERGIES: INCLUDE ASPIRIN, HALOPERIDOL, IBUPROFEN, LACTULOSE, PENICILLIN, PINEAPPLE, DIARY. HOME MEDICATIONS: Include atorvastatin, benzatropine, chlorpromazine, famotidine, lisinopril, propranolol, topiramate, Tylenol, albuterol, fluticasone, oxcarbazepine, polyethylene glycol, trazodone. PHYSICAL EXAMINATION: GENERAL: The patient is resting in the bed. Awake, alert, oriented x3. No significant distress. VITAL SIGNS: Blood pressure 133/80, pulse 72, afebrile. HEENT: Shows pupils equal bilaterally to light. No jugular venous distention is noted. Mucosa moist. There is no scleral icterus or conjunctival congestion. NECK: Supple. No thyromegaly is noted. CARDIOVASCULAR SYSTEM: S1, S2 without rub or murmur. RESPIRATORY SYSTEM: Air entry decreased in the bases. ABDOMEN: Soft. No guarding or rigidity. Bowel sounds normal. EXTREMITIES: No edema. There is no peripheral cyanosis or clubbing. NEURO: Essentially nonfocal except for his developmental delay. LABORATORY DATA: Labs done today, WBC 10.3, hemoglobin 14.42, hematocrit 40.5, platelets were normal. Sodium 125, potassium 4.0, chloride 96, CO2 of 23, anion gap 10, BUN 6, creatinine 0.74, estimated GFR more than 60, glucose 141. Serum osmolality is pending. Uric acid level 2.4, calcium 9.0. Urinalysis shows specific gravity 1.005, protein negative, ketone negative, blood negative. IMPRESSION: 1. A 61-year-old male with hyponatremia. Clinically, the patient is euvolemic. There is no history or evidence that the patient had GI losses of sodium. The hyponatremia is likely due to medication Trileptal. It can cause inappropriate antidiuretic hormone secretion. We need to rule out thyroid disease and adrenal disease. 2. Syncope, unclear etiology. 3. Type 2 diabetes mellitus. 4. Bipolar disorder. RECOMMENDATION: At this juncture, I recommend fluid restriction of 1200 cc per day. I have taken the liberty to order a sodium chloride tablet 1 g q.6 hourly x2 doses. I will also order urea 15 g on daily basis. Based on the response to sodium, I plan adjust the dose of urea. I recommend avoiding over-correction, not to correct more than 6-7 mEq over the next 24 hours. I agree with getting psychiatric evaluation regarding changing medication Trileptal to another agent if possible. Thank you for allowing me to participate in medical management of the patient. MD KIMMIE Kang/RUSSELL / [id number]
== END 2021-06-18 17:15 | disposition home health service (06) | DRG 641 ==
LOC: HO.ED 15:57 → HO.EDOVER 18:06 → HO.IMC 18:20
PROVIDERS: Internal Medicine; Internal Medicine Nephrology; Nurse Practitioner Family; Admitting Provider Hospitalist; Emergency Provider Emergency Medicine; Visit Provider Hospitalist
DX: E87.1 Hypo-osmolality and hyponatremia (principal); E11.9 Type 2 diabetes mellitus without complications; I10 Essential (primary) hypertension; R55 Syncope and collapse; T42.1X5A Adverse effect of iminostilbenes, initial encounter; F43.10 Post-traumatic stress disorder, unspecified; F31.9 Bipolar disorder, unspecified; Z20.822 Contact with and (suspected) exposure to COVID-19; Z88.0 Allergy status to penicillin; Z88.6 Allergy status to analgesic agent; Z79.51 Long term (current) use of inhaled steroids; Z79.899 Other long term (current) drug therapy
CPT/HCPCS: 36415; 70450; 70496; 70498; 71046; 72100; 72125; 80048; 80076; 80307; 81003; 82077; 82140; 82533; 82947; 83605; 83735; 83930; 84300; 84484; 84550; 85025; 85610; 87502; 87635; 93005; 95816; 99285; J1650; Q9967

== ENCOUNTER 2021-06-21 13:49 | Emergency (ER) | payer MEDICARE, MEDICAID, SELFPAY ==
--- NOTE | ~2021-06-21 | XR_ITS ---
EXAMINATION: XR CHEST CLINICAL INFORMATION: Rule out pneumonia COMPARISON: Previous chest x-ray 06/16/2021 TECHNIQUE: Frontal view of the chest was obtained. FINDINGS: No significant abnormality is noted involving the heart, lungs, mediastinum, bony thorax or soft tissues. XR/XR chest 1V IMPRESSION: Unremarkable examination.
[2021-06-21 14:04] VITALS: BP 144/89; PULSE 78; RESP 15; TEMP 36.6; O2SAT 95; BMI 31.5
--- NOTE | 2021-06-21 14:06 | ECG_ITS ---
Test Reason : WEAKNESS Blood Pressure : / mmHG Vent. Rate : 075 BPM Atrial Rate : 075 BPM P-R Int : 178 ms QRS Dur : 102 ms QT Int : 400 ms P-R-T Axes : 037 -04 023 degrees QTc Int : 446 ms Normal sinus rhythm Incomplete right bundle branch block Borderline ECG When compared with ECG of 17-JUN-2021 01:27, No significant change was found Referred By: Krystal Sosa Electronically Signed By:ALMITA LEWIS
--- NOTE | 2021-06-21 14:09 | ED.GENADULT ---
HPI - General Adult General Chief complaint: Weakness Stated complaint: GENERAL WEAKNESS Time Seen by Provider: 06/21/21 13:53 Source: patient and other (Home staff) Mode of arrival: ambulatory Limitations: no limitations History of Present Illness HPI narrative: 60-year-old gentleman with past medical history significant for cognitive developmental delay, type 2 diabetes mellitus, hypertension, bipolar disorder lives at home with daily visit by? VNA. Patient is brought today because he is acting more sluggish than usual. Patient states that he feels the same as the last time that he was here. Of note, patient was discharged 3 days ago from this hospital. Patient was treated for syncope of unknown etiology, hyponatremia likely secondary to Trileptal, patient was discharged on urea 15 g tablets and sodium chloride tablets. It is unclear if patient has been taking his medications. Patient states he does not remember. Related Data Home Medications Medication Instructions Recorded Confirmed atorvastatin 10 mg tablet 1 tab PO DAILY 11/18/20 06/16/21 benztropine 1 mg tablet 1 tab PO BID 11/18/20 06/16/21 chlorpromazine 100 mg tablet 100 - 200 mg PO BID PRN 11/18/20 06/16/21 chlorpromazine 100 mg tablet 100 mg PO BEDTIME 11/18/20 06/16/21 famotidine 40 mg tablet 1 tab PO BID 11/18/20 06/16/21 hydroxyzine HCl 50 mg tablet 1 tab PO TID PRN 11/18/20 06/16/21 propranolol 60 mg tablet 1 tab PO BID 11/18/20 06/16/21 topiramate 50 mg tablet 1 tab PO DAILY 11/18/20 06/16/21 acetaminophen 500 mg tablet 500 mg PO Q6H PRN 06/16/21 06/16/21 albuterol sulfate 2.5 mg INHALATION Q4-6H PRN 06/16/21 06/16/21 fluticasone propionate 50 1 spray INTRANASAL BID 06/16/21 06/16/21 mcg/actuation nasal spray,suspension oxcarbazepine 600 mg tablet 600 mg PO BID 06/16/21 06/16/21 polyethylene glycol 3350 17 gram 17 g PO DAILY 06/16/21 06/16/21 oral powder packet (Miralax) trazodone 150 mg tablet 1 tab PO BEDTIME PRN 06/16/21 06/16/21 Previous Rx's Medication Instructions Recorded urea 15 gram oral powder packet 1 packet PO DAILY #8 ea 06/18/21 Allergies Allergy/AdvReac Type Severity Reaction Status Date / Time aspirin [ASPIRIN] Allergy Unknown NOSE BLEEDS Verified 11/18/20 14:53 haloperidol [From HALDOL] Allergy Unknown EYES ROLL Verified 11/18/20 14:53 ibuprofen [IBUPROFEN] Allergy Unknown NOSE BLEEDS Verified 11/18/20 14:53 lactose [LACTOSE] Allergy Unknown DIARRHEA Verified 11/18/20 14:53 Penicillins [PENICILLINS] Allergy Unknown NAUSEA Verified 11/18/20 14:53 pineapple [PINEAPPLE] Allergy Unknown ITCHING,LISETH Verified 11/18/20 14:53 H dairy Allergy Unknown Unknown Uncoded 11/18/20 14:53 pineapple Allergy Unknown Unknown Uncoded 11/18/20 14:53 SEASONAL ALLERGIES Allergy Unknown SNEEZING,FACE Uncoded 12/11/19 16:07 SWELLING Review of Systems Review of Systems: Constitutional : No Weight loss, No Fever, No Chills, No Night Sweats, feeling fatigued ENT/Mouth : No Hearing loss, No Ear Pain, No Nasal Congestion, No Sinus Pain, No Hoarseness, No sore throat, No Rhinorrhea, No Swallowing Difficulty Eyes: No Eye Pain, No Swelling, No Redness, No Foreign Body, No Discharge, No Vision Changes Cardiovascular : No Chest Pain, No SOB, No Dyspnea on Exertion, No Orthopnea, No Edema, No Palpitations Respiratory : Mild cough, No Sputum, No Wheezing, No Smoke Exposure, No Dyspnea Gastrointestinal : No Nausea, No Vomiting, No Diarrhea, No Constipation, No abdominal Pain, No Hematochezia, No Melena Genitourinary : no irregular bleeding, No Dysuria, No Urinary Frequency, No Hematuria, No Urinary Incontinence, No Urgency, No Flank Pain, No Urinary Flow Changes, No Hesitancy Musculoskeletal : No joint pain, No Myalgias, No Joint Swelling Skin : No Skin Lesions, No rash Neuro : No Weakness, No Numbness, No Paresthesias, No Loss of Consciousness, No Dizziness, No Headache Psych : No Anxiety/Panic, No Depression, No SI/HI/AH/VH, No Social Issues, Heme/Lymph: No Bruising, No Bleeding,No Lymphadenopathy Endocrine : No Polyuria, No Polydipsia, No Temperature Intolerance PMFSH Past Medical History Medical History (Updated 06/21/21 @ 16:37 by Krystal Sosa MD) Bipolar disorder Cognitive developmental delay Diabetes HTN (hypertension) Hyponatremia Impulse control disorder PTSD (post-traumatic stress disorder) Social History Social History Household Members: None Housing: Apartment Do you presently have visiting nurse or other home services: Yes ([facility]NA daily) Alcohol intake: never Patient Tobacco Use Status: Never used Tobacco Advance Directives: No Advance Directives Information Provided: Yes service: No Current occupational status: disabled Physical Exam ED Vital Signs: Vital Signs - 24 hr 06/21/21 14:04 Temperature 97.9 F Pulse Rate 78 Respiratory Rate 15 Blood Pressure 144/89 H Pulse Oximetry 95 BMI result Body Mass Index 31.5 Const Other: Appearance: Alert. Oriented X3. No acute distress. Seems weak Eyes: Pupils equal, round and reactive to light. ENT: Pharynx normal. Neck: Normal inspection. Neck supple. No lymph nodes noted. No crepitus CVS: Normal heart rate and rhythm. Pulses normal. Normal S1 and S2 Respiratory: No respiratory distress. Breath sounds normal. No Wheezing. No rales Abdomen: Soft and nontender. No rigidity. No distention. Skin: Skin warm and dry. Normal skin color. Normal skin turgor. Extremities: No lower extremity edema. No Lacerations. No Rash Neuro: Oriented X 3. No motor deficit. No sensory deficit. Moving all extremities. No slurred speech. CN 2 through 12 grossly intact Psych: calm, cooperative, normal affect Course Course Course Narrative: Patient is by himself, unclear if patient has been taking his medications as prescribed. It is possible the patient may be hyponatremic again. Labs pending. At this time, patient's labs resolved, patient's urine is within normal limits, no UTI, patient's sodium is 134, which is better than when he left the hospital. Patient states that he feels much better than when he 1st came in. Patient ready for discharge. Medical Decision Making Lab Data Result diagrams: 06/21/21 14:22 06/21/21 14:22 Labs: Lab Results 06/21/21 06/21/21 06/21/21 Range/Units 14:22 14:22 14:22 WBC 7.8 (4.8-10.8) X10*3/uL RBC 4.98 (4.60-5.80) X10*6/uL Hgb 13.8 L (14.0-18.0) g/dl Hct 40.2 L (42.0-52.0) % MCV 80.7 (80.0-98.0) fL MCH 27.7 (27.0-33.0) pg MCHC 34.3 (31.0-36.0) g/dl RDW 12.9 (11.0-16.0) % Plt Count 287 (160-400) X10*3/uL MPV 8.6 L (9.4-12.4) fL Immature Gran % (Auto) 0.3 (0.0-0.4) % Neut % (Auto) 58.4 (45-73) % Lymph % (Auto) 29.9 (20-40) % [place] % (Auto) 9.6 (2-11) % Eos % (Auto) 1.4 (0-4) % Baso % (Auto) 0.4 (0-2) % Lymph # (Auto) 2.3 (1.2-4.9) X10*3/uL [place] # (Auto) 0.8 (0.1-1.2) X10*3/uL Eos # (Auto) 0.1 (0.0-0.4) X10*3/uL Baso # (Auto) 0.0 (0.0-0.2) X10*3/uL Abs Immat Gran (auto) 0.02 (0.00-0.03) X10*3/uL Absolute Neuts (auto) 4.6 (2.0-8.3) x10*3/uL Absolute Nucleated RBC 0.000 (0.0-0.012) X10*3/uL Nucleated RBC % (auto) 0.0 (0.0-0.2) /100WBC Sodium 134 L (135-145) mmol/L Potassium 3.9 (3.3-5.1) mmol/L Chloride 103 (96-108) mmol/L Carbon Dioxide 22 (22-29) mmol/L Anion Gap 13 (12-20) BUN 20 H D (9-16) mg/dL Creatinine 0.82 (0.5-1.4) mg/dL Estim Creat Clear Calc 114.8 Estimated GFR > 60 Random Glucose 135 H (60-115) mg/dL Calcium 9.4 (8.4-10.2) mg/dL Magnesium 1.9 (1.6-2.6) mg/dL Total Bilirubin 0.3 (0.0-1.0) mg/dL Direct Bilirubin < 0.2 (0.0-0.5) mg/dL AST 21 (5-37) U/L ALT 33 (0-40) U/L Alkaline Phosphatase 95 (39-117) U/L Troponin I High Sens < 3.5 (<3.5-35.0) ng/L Total Protein 7.1 (6.5-8.0) g/dL Albumin 4.5 (3.5-5.0) g/dL Lipase 28 (8-78) U/L Urine Color Urine Appearance Urine pH (5.0-8.0) Ur Specific [place] (1.005-1.025) Urine Protein (NEG-TRACE) MG/DL Urine Glucose (UA) (NEG) MG/DL Urine Ketones (NEG) MG/DL Urine Blood (NEG) Urine Nitrite (NEG) Ur Leukocyte Esterase (NEG) Urine Opiates Screen (Not Detect) Urine Fentanyl Screen (Not Detect) Ur Barbiturates Screen (Not Detect) Ur Phencyclidine Scrn (Not Detect) Ur Amphetamines Screen (Not Detect) U Benzodiazepines Scrn (Not Detect) Urine Cocaine Screen (Not Detect) U Marijuana (THC) Screen (Not Detect) COVID-19 ([facility]) (Negative) COVID-19 Clin Com 06/21/21 06/21/21 06/21/21 Range/Units 14:22 16:06 16:06 WBC (4.8-10.8) X10*3/uL RBC (4.60-5.80) X10*6/uL Hgb (14.0-18.0) g/dl Hct (42.0-52.0) % MCV (80.0-98.0) fL MCH (27.0-33.0) pg MCHC (31.0-36.0) g/dl RDW (11.0-16.0) % Plt Count (160-400) X10*3/uL MPV (9.4-12.4) fL Immature Gran % (Auto) (0.0-0.4) % Neut % (Auto) (45-73) % Lymph % (Auto) (20-40) % [place] % (Auto) (2-11) % Eos % (Auto) (0-4) % Baso % (Auto) (0-2) % Lymph # (Auto) (1.2-4.9) X10*3/uL [place] # (Auto) (0.1-1.2) X10*3/uL Eos # (Auto) (0.0-0.4) X10*3/uL Baso # (Auto) (0.0-0.2) X10*3/uL Abs Immat Gran (auto) (0.00-0.03) X10*3/uL Absolute Neuts (auto) (2.0-8.3) x10*3/uL Absolute Nucleated RBC (0.0-0.012) X10*3/uL Nucleated RBC % (auto) (0.0-0.2) /100WBC Sodium (135-145) mmol/L Potassium (3.3-5.1) mmol/L Chloride (96-108) mmol/L Carbon Dioxide (22-29) mmol/L Anion Gap (12-20) BUN (9-16) mg/dL Creatinine (0.5-1.4) mg/dL Estim Creat Clear Calc Estimated GFR Random Glucose (60-115) mg/dL Calcium (8.4-10.2) mg/dL Magnesium (1.6-2.6) mg/dL Total Bilirubin (0.0-1.0) mg/dL Direct Bilirubin (0.0-0.5) mg/dL AST (5-37) U/L ALT (0-40) U/L Alkaline Phosphatase (39-117) U/L Troponin I High Sens (<3.5-35.0) ng/L Total Protein (6.5-8.0) g/dL Albumin (3.5-5.0) g/dL Lipase (8-78) U/L Urine Color YELLOW Urine Appearance CLEAR Urine pH 6.0 (5.0-8.0) Ur Specific [place] 1.020 (1.005-1.025) Urine Protein NEG (NEG-TRACE) MG/DL Urine Glucose (UA) NEG (NEG) MG/DL Urine Ketones NEG (NEG) MG/DL Urine Blood NEG (NEG) Urine Nitrite NEG (NEG) Ur Leukocyte Esterase NEG (NEG) Urine Opiates Screen Not Detected (Not Detect) Urine Fentanyl Screen Not Detected (Not Detect) Ur Barbiturates Screen Not Detected (Not Detect) Ur Phencyclidine Scrn Not Detected (Not Detect) Ur Amphetamines Screen Not Detected (Not Detect) U Benzodiazepines Scrn Not Detected (Not Detect) Urine Cocaine Screen Not Detected (Not Detect) U Marijuana (THC) Screen Not Detected (Not Detect) COVID-19 ([facility]) Negative (Negative) COVID-19 Clin Com See Note Discharge Plan Discharge Clinical Impression: Generalized weakness Patient Disposition: Home, Self-Care Instructions: Weakness (ED) Additional Instructions: Please follow-up with your primary care physician tomorrow. If you have any worsening or new symptoms, please return to the emergency room or call 911 Prescriptions: No Action atorvastatin 10 mg tablet 1 tab PO DAILY 0RF chlorpromazine 100 mg tablet 100 mg PO BEDTIME 0RF famotidine 40 mg tablet 1 tab PO BID 0RF propranolol 60 mg tablet 1 tab PO BID 0RF hydroxyzine HCl 50 mg tablet 1 tab PO TID PRN (Reason: anxiety or agitation) 0RF benztropine 1 mg tablet 1 tab PO BID 0RF topiramate 50 mg tablet 1 tab PO DAILY 0RF chlorpromazine 100 mg tablet 100 - 200 mg PO BID PRN (Reason: Agitation) 0RF trazodone 150 mg tablet 1 tab PO BEDTIME PRN (Reason: insomnia) 0RF oxcarbazepine 600 mg tablet 600 mg PO BID 0RF albuterol sulfate 2.5 mg /3 mL (0.083 %) Solution For Nebulization 2.5 mg INHALATION Q4-6H PRN (Reason: Wheezing) 0RF polyethylene glycol 3350 [Miralax] 17 gram Powder In Packet 17 g PO DAILY 0RF acetaminophen 500 mg Tablet 500 mg PO Q6H PRN (Reason: Pain) 0RF fluticasone propionate 50 mcg/actuation [place],Suspension 1 spray INTRANASAL BID 0RF Rx Instructions: administer into each nostril urea 15 gram powder in packet 1 packet PO DAILY Qty: 8 2RF
[2021-06-21 14:27] LABS: MANUAL DIFF FLAG NO
[2021-06-21 14:28] LABS: Basophils Percent Auto 0.4 % (0-2); Eosinophils Absolute Auto 0.1 X10*3/uL (0.0-0.4); Eosinophils Percent Auto 1.4 % (0-4); Hematocrit 40.2 % (42.0-52.0); Hemoglobin 13.8 g/dl (14.0-18.0); Imm Gran Abs Auto 0.02 X10*3/uL (0.00-0.03); Imm Gran Pct Auto 0.3 % (0.0-0.4); Lymphocytes Absolute Auto 2.3 X10*3/uL (1.2-4.9); Lymphocytes Percent Auto 29.9 % (20-40); Mean Corpuscular HGB Conc 34.3 g/dl (31.0-36.0); Mean Corpuscular Hemoglobin 27.7 pg (27.0-33.0); Mean Corpuscular Volume 80.7 fL (80.0-98.0); Mean Platelet Volume 8.6 fL (9.4-12.4); Monocytes Absolute Auto 0.8 X10*3/uL (0.1-1.2); Monocytes Percent Auto 9.6 % (2-11); Neutrophils Absolute Auto 4.6 x10*3/uL (2.0-8.3); Neutrophils Percent Auto 58.4 % (45-73); Platelet Count 287 X10*3/uL (160-400); Red Blood Count 4.98 X10*6/uL (4.60-5.80); Red Cell Distribution Width 12.9 % (11.0-16.0); White Blood Count 7.8 X10*3/uL (4.8-10.8)
[2021-06-21 14:47] LABS: COVID-19 Test Negative (Negative)
[2021-06-21 14:48] LABS: Troponin-I High Sensitivity < 3.5 ng/L (<3.5-35.0)
[2021-06-21 14:53] LABS: Alanine Aminotransferase 33 U/L (0-40); Albumin Level 4.5 g/dL (3.5-5.0); Alkaline Phosphatase 95 U/L (39-117); Anion Gap 13 (12-20); Aspartate Amino Transferase 21 U/L (5-37); Bilirubin Direct < 0.2 mg/dL (0.0-0.5); Bilirubin Total 0.3 mg/dL (0.0-1.0); Blood Urea Nitrogen 20 mg/dL (9-16); Calcium 9.4 mg/dL (8.4-10.2); Carbon Dioxide 22 mmol/L (22-29); Chloride 103 mmol/L (96-108); Creatinine Clr Calc Pharmacy 114.8; Estimated Glomerular Filt Rate > 60; Glucose Random 135 mg/dL (60-115); Lipase 28 U/L (8-78); Magnesium 1.9 mg/dL (1.6-2.6); Potassium 3.9 mmol/L (3.3-5.1); Sodium 134 mmol/L (135-145); Total Protein 7.1 g/dL (6.5-8.0)
[2021-06-21 16:20] LABS: Appearance Urine CLEAR; Color Urine YELLOW; Glucose Urine UA NEG (NEG); Leukocyte Esterase Urine NEG (NEG); Nitrite Urine NEG (NEG); Urine Blood NEG (NEG); Urine Ketones NEG (NEG); Urine Protein NEG (NEG-TRACE)
[2021-06-21 16:30] LABS: Amphetamine Screen Urine Not Detected (Not Detect); Barbiturates, Urine Not Detected (Not Detect); Benzodiazepines Screen Urine Not Detected (Not Detect); Cannabinoid Screen Urine Not Detected (Not Detect); Cocaine Screen Urine Not Detected (Not Detect); Fentanyl, urine Not Detected (Not Detect); Opiate Screen Urine Not Detected (Not Detect); Phencyclidine Screen Urine Not Detected (Not Detect)
== END 2021-06-21 17:19 | disposition home or self-care (01) ==
PROVIDERS: Emergency Provider Emergency Medicine; PCP Family Medicine
DX: R53.1 Weakness (principal); I10 Essential (primary) hypertension; E11.9 Type 2 diabetes mellitus without complications; Z20.822 Contact with and (suspected) exposure to COVID-19; Z79.899 Other long term (current) drug therapy
CPT/HCPCS: 36415; 71045; 80048; 80076; 80307; 81003; 83690; 83735; 84484; 85025; 87635; 93005; 99283; 99284

== ENCOUNTER 2021-06-22 15:12 | Emergency (ER) | payer MEDICARE, MEDICAID, SELFPAY ==
--- NOTE | 2021-06-22 15:17 | ED_ITS ---
HPI - Altered Mental Status General Chief Complaint: Altered Mental Status Stated Complaint: AMS PER PCP,SEEN FOR SAME RECENTLY PER EMS Time Seen by Provider: 06/22/21 15:15 Source: old records reviewed Mode of arrival: EMS Limitations: altered mental status History of Present Illness HPI narrative: [facility] a [facility] with altered mental status, he was recently admitted for hyponatremia. MD complaint: altered mental status Onset (ago): day(s) Severity: mild Associated symptoms: denies other symptoms Related Data Home Medications Medication Instructions Recorded Confirmed atorvastatin 10 mg tablet 1 tab PO DAILY 11/18/20 06/16/21 benztropine 1 mg tablet 1 tab PO BID 11/18/20 06/16/21 chlorpromazine 100 mg tablet 100 - 200 mg PO BID PRN 11/18/20 06/16/21 chlorpromazine 100 mg tablet 100 mg PO BEDTIME 11/18/20 06/16/21 famotidine 40 mg tablet 1 tab PO BID 11/18/20 06/16/21 hydroxyzine HCl 50 mg tablet 1 tab PO TID PRN 11/18/20 06/16/21 propranolol 60 mg tablet 1 tab PO BID 11/18/20 06/16/21 topiramate 50 mg tablet 1 tab PO DAILY 11/18/20 06/16/21 acetaminophen 500 mg tablet 500 mg PO Q6H PRN 06/16/21 06/16/21 albuterol sulfate 2.5 mg INHALATION Q4-6H PRN 06/16/21 06/16/21 fluticasone propionate 50 1 spray INTRANASAL BID 06/16/21 06/16/21 mcg/actuation nasal spray,suspension oxcarbazepine 600 mg tablet 600 mg PO BID 06/16/21 06/16/21 polyethylene glycol 3350 17 gram 17 g PO DAILY 06/16/21 06/16/21 oral powder packet (Miralax) trazodone 150 mg tablet 1 tab PO BEDTIME PRN 06/16/21 06/16/21 Previous Rx's Medication Instructions Recorded urea 15 gram oral powder packet 1 packet PO DAILY #8 ea 06/18/21 Allergies Allergy/AdvReac Type Severity Reaction Status Date / Time aspirin [ASPIRIN] Allergy Unknown NOSE BLEEDS Verified 11/18/20 14:53 haloperidol [From HALDOL] Allergy Unknown EYES ROLL Verified 11/18/20 14:53 ibuprofen [IBUPROFEN] Allergy Unknown NOSE BLEEDS Verified 11/18/20 14:53 lactose [LACTOSE] Allergy Unknown DIARRHEA Verified 11/18/20 14:53 Penicillins [PENICILLINS] Allergy Unknown NAUSEA Verified 11/18/20 14:53 pineapple [PINEAPPLE] Allergy Unknown ITCHING,LISETH Verified 11/18/20 14:53 H dairy Allergy Unknown Unknown Uncoded 11/18/20 14:53 pineapple Allergy Unknown Unknown Uncoded 11/18/20 14:53 SEASONAL ALLERGIES Allergy Unknown SNEEZING,FACE Uncoded 12/11/19 16:07 SWELLING Review of Systems Review of Systems: Yes Unobtainable due to mental status Neurologic: Denies Sensory deficit (Neuro) [facility] Past Medical History Medical History Bipolar disorder Cognitive developmental delay Diabetes HTN (hypertension) Hyponatremia Impulse control disorder PTSD (post-traumatic stress disorder) Social History Social History Household Members: None Housing: Apartment Do you presently have visiting nurse or other home services: Yes ([facility]NA daily) Alcohol intake: never Patient Tobacco Use Status: Never used Tobacco Advance Directives: No Advance Directives Information Provided: No service: No Current occupational status: disabled Physical Exam ED Vital Signs: Vital Signs - 24 hr 06/22/21 15:25 Temperature 98.1 F Pulse Rate 71 Respiratory Rate 16 Blood Pressure 149/85 H Pulse Oximetry 98 BMI result Body Mass Index 29.8 Const Other: Male with MR, slightly anxious Nutritional Appearance: average body habitus Orientation/consciousness: oriented to person Limitations: behavioral limitations HENMT Head: Yes normal to inspection Ears: external ears normal General nose exam: Normal external nose present Mouth: Normal oral and palatal mucosa present and oropharynx normal Throat: Yes posterior oropharynx normal Eyes General: appearance normal, both eyes and all related structures Neck Neck: Yes normal visual inspection Chest Chest palpation & inspection: normal inspection of the chest Resp Auscultation: clear to auscultation bilaterally Cardio Jugular venous distension: no JVD Rate: regular rate Rhythm: regular rhythm Heart sounds: S1 normal heart sound present and S2 normal heart sound present GI Inspection: Yes normal to inspection Palpation (GI): Soft to palpation, nontender and No hepatosplenomegaly present Auscultation: normal bowel sounds General: Yes no CVA tenderness Back/Spine/Pelvis Back: no CVA tenderness Skin General skin exam: no rashes or lesions noted Neuro General: oriented to person Cranial nerves: Yes CN's II-XII intact bilaterally Motor exam (neuro): 5/5 motor strength present throughout Sensory Exam: No Sensory deficit (Neuro) Extrem General: Yes normal to inspection Psych Other: awake and alert Course Course Course Narrative: patient communicating clearly, asking for food. Will check his sodium, neuro nonfocal Reevaluation(s) Reevaluation #1: patient ate, is interactive and non focal, will dc home. Patient talking on the phone Time: 16:45 MDM - Altered Mental Status Lab Data Result diagrams: 06/22/21 15:51 06/22/21 15:51 Labs: Lab Results 06/22/21 06/22/21 Range/Units 15:51 15:51 WBC 7.0 (4.8-10.8) X10*3/uL RBC 5.06 (4.60-5.80) X10*6/uL Hgb 13.8 L (14.0-18.0) g/dl Hct 40.9 L (42.0-52.0) % MCV 80.8 (80.0-98.0) fL MCH 27.3 (27.0-33.0) pg MCHC 33.7 (31.0-36.0) g/dl RDW 13.2 (11.0-16.0) % Plt Count 298 (160-400) X10*3/uL MPV 8.4 L (9.4-12.4) fL Immature Gran % (Auto) 0.3 (0.0-0.4) % Neut % (Auto) 53.1 (45-73) % Lymph % (Auto) 35.4 (20-40) % [place] % (Auto) 9.2 (2-11) % Eos % (Auto) 1.6 (0-4) % Baso % (Auto) 0.4 (0-2) % Lymph # (Auto) 2.5 (1.2-4.9) X10*3/uL [place] # (Auto) 0.6 (0.1-1.2) X10*3/uL Eos # (Auto) 0.1 (0.0-0.4) X10*3/uL Baso # (Auto) 0.0 (0.0-0.2) X10*3/uL Abs Immat Gran (auto) 0.02 (0.00-0.03) X10*3/uL Absolute Neuts (auto) 3.7 (2.0-8.3) x10*3/uL Absolute Nucleated RBC 0.000 (0.0-0.012) X10*3/uL Nucleated RBC % (auto) 0.0 (0.0-0.2) /100WBC Sodium 135 (135-145) mmol/L Potassium 3.9 (3.3-5.1) mmol/L Chloride 102 (96-108) mmol/L Carbon Dioxide 26 (22-29) mmol/L Anion Gap 11 L (12-20) BUN 20 H (9-16) mg/dL Creatinine 0.90 (0.5-1.4) mg/dL Estim Creat Clear Calc 95.8 Estimated GFR > 60 Random Glucose 110 (60-115) mg/dL Calcium 9.7 (8.4-10.2) mg/dL Discharge Plan Discharge Clinical Impression: Acute hyponatremia Patient Disposition: Home, Self-Care Instructions: Hyponatremia (ED) Prescriptions: No Action atorvastatin 10 mg tablet 1 tab PO DAILY 0RF chlorpromazine 100 mg tablet 100 mg PO BEDTIME 0RF famotidine 40 mg tablet 1 tab PO BID 0RF propranolol 60 mg tablet 1 tab PO BID 0RF hydroxyzine HCl 50 mg tablet 1 tab PO TID PRN (Reason: anxiety or agitation) 0RF benztropine 1 mg tablet 1 tab PO BID 0RF topiramate 50 mg tablet 1 tab PO DAILY 0RF chlorpromazine 100 mg tablet 100 - 200 mg PO BID PRN (Reason: Agitation) 0RF trazodone 150 mg tablet 1 tab PO BEDTIME PRN (Reason: insomnia) 0RF oxcarbazepine 600 mg tablet 600 mg PO BID 0RF albuterol sulfate 2.5 mg /3 mL (0.083 %) Solution For Nebulization 2.5 mg INHALATION Q4-6H PRN (Reason: Wheezing) 0RF polyethylene glycol 3350 [Miralax] 17 gram Powder In Packet 17 g PO DAILY 0RF acetaminophen 500 mg Tablet 500 mg PO Q6H PRN (Reason: Pain) 0RF fluticasone propionate 50 mcg/actuation [place],Suspension 1 spray INTRANASAL BID 0RF Rx Instructions: administer into each nostril urea 15 gram powder in packet 1 packet PO DAILY Qty: 8 2RF Referrals: Jenni Green MD [Primary Care Provider] - 3 days
[2021-06-22 15:25] VITALS: BP 143/80; BP 149/85; PULSE 71; PULSE 76; RESP 16; TEMP 36.7; O2SAT 97; O2SAT 98; BMI 29.8
[2021-06-22 15:57] LABS: MANUAL DIFF FLAG NO
[2021-06-22 16:00] LABS: Basophils Percent Auto 0.4 % (0-2); Eosinophils Absolute Auto 0.1 X10*3/uL (0.0-0.4); Eosinophils Percent Auto 1.6 % (0-4); Hematocrit 40.9 % (42.0-52.0); Hemoglobin 13.8 g/dl (14.0-18.0); Imm Gran Abs Auto 0.02 X10*3/uL (0.00-0.03); Imm Gran Pct Auto 0.3 % (0.0-0.4); Lymphocytes Absolute Auto 2.5 X10*3/uL (1.2-4.9); Lymphocytes Percent Auto 35.4 % (20-40); Mean Corpuscular HGB Conc 33.7 g/dl (31.0-36.0); Mean Corpuscular Hemoglobin 27.3 pg (27.0-33.0); Mean Corpuscular Volume 80.8 fL (80.0-98.0); Mean Platelet Volume 8.4 fL (9.4-12.4); Monocytes Absolute Auto 0.6 X10*3/uL (0.1-1.2); Monocytes Percent Auto 9.2 % (2-11); Neutrophils Absolute Auto 3.7 x10*3/uL (2.0-8.3); Neutrophils Percent Auto 53.1 % (45-73); Platelet Count 298 X10*3/uL (160-400); Red Blood Count 5.06 X10*6/uL (4.60-5.80); Red Cell Distribution Width 13.2 % (11.0-16.0)
[2021-06-22 16:13] LABS: Anion Gap 11 (12-20); Blood Urea Nitrogen 20 mg/dL (9-16); Calcium 9.7 mg/dL (8.4-10.2); Carbon Dioxide 26 mmol/L (22-29); Chloride 102 mmol/L (96-108); Creatinine Clr Calc Pharmacy 95.8; Estimated Glomerular Filt Rate > 60; Glucose Random 110 mg/dL (60-115); Potassium 3.9 mmol/L (3.3-5.1); Sodium 135 mmol/L (135-145)
== END 2021-06-22 17:38 | disposition home or self-care (01) ==
PROVIDERS: Emergency Provider Emergency Medicine; PCP Family Medicine
DX: E87.1 Hypo-osmolality and hyponatremia (principal); E11.9 Type 2 diabetes mellitus without complications; I10 Essential (primary) hypertension; Z79.02 Long term (current) use of antithrombotics/antiplatelets; Z79.899 Other long term (current) drug therapy
CPT/HCPCS: 36415; 80048; 85025; 99283; 99284

== ENCOUNTER 2021-06-29 10:48 | Outpatient (REF) | payer MEDICARE, MEDICAID, SELFPAY ==
[2021-06-29 12:13] LABS: Anion Gap 10 (12-20); Blood Urea Nitrogen 8 mg/dL (9-16); Calcium 9.3 mg/dL (8.4-10.2); Carbon Dioxide 24 mmol/L (22-29); Chloride 109 mmol/L (96-108); Estimated Glomerular Filt Rate > 60; Glucose Random 151 mg/dL (60-115); Potassium 4.1 mmol/L (3.3-5.1); Sodium 139 mmol/L (135-145)
== END 2021-06-29 10:49 | disposition home or self-care (01) ==
LOC: HO.LAB 10:48
PROVIDERS: PCP Family Medicine; Visit Provider Hospitalist
DX: E87.1 Hypo-osmolality and hyponatremia (principal)
CPT/HCPCS: 36415; 80048

== ENCOUNTER 2021-12-22 16:04 | Outpatient (REF) | payer MEDICARE, MEDICAID, SELFPAY ==
[2021-12-22 16:51] LABS: Anion Gap 14 (12-20); Carbon Dioxide 24 mmol/L (22-29); Chloride 105 mmol/L (96-108); Potassium 3.9 mmol/L (3.3-5.1); Sodium 139 mmol/L (135-145)
== END 2021-12-22 16:05 | disposition home or self-care (01) ==
LOC: HO.LAB 16:04
PROVIDERS: Visit Provider Internal Medicine Nephrology
DX: E87.1 Hypo-osmolality and hyponatremia (principal)
CPT/HCPCS: 36415; 80051

== ENCOUNTER 2022-11-27 22:23 | Emergency (ER) | payer MEDICARE, MEDICAID, SELFPAY ==
[2022-11-27 22:26] VITALS: BP 151/90; PULSE 83; RESP 16; TEMP 36.5; O2SAT 96; BMI 31.9
[2022-11-27 22:53] VITALS: RESP 16
[2022-11-27 22:56] LABS: Appearance Urine Clear; Color Urine Yellow; Glucose Urine UA Negative (Negative); Leukocyte Esterase Urine Negative (Negative); Nitrite Urine Negative (Negative); PH 5.5 (5.0-9.0); Urine Blood Negative (Negative); Urine Ketones Negative (Negative); Urine Protein Negative (Neg-Trace)
[2022-11-27 23:07] LABS: Basophils Percent Auto 0.2 % (0-2); Eosinophils Absolute Auto 0.1 X10*3/uL (0.0-0.4); Eosinophils Percent Auto 0.4 % (0-4); Hemoglobin 16.9 g/dl (14.0-18.0); Imm Gran Abs Auto 0.04 X10*3/uL (0.00-0.03); Imm Gran Pct Auto 0.3 % (0.0-0.4); Lymphocytes Absolute Auto 2.5 X10*3/uL (1.2-4.9); Lymphocytes Percent Auto 20.5 % (20-40); MANUAL DIFF FLAG NO; Mean Corpuscular Volume 83.5 fL (80.0-98.0); Mean Platelet Volume 9.1 fL (9.4-12.4); Monocytes Absolute Auto 0.9 X10*3/uL (0.1-1.2); Monocytes Percent Auto 7.2 % (2-11); Neutrophils Absolute Auto 8.8 x10*3/uL (2.0-8.3); Neutrophils Percent Auto 71.4 % (45-73); Platelet Count 274 X10*3/uL (160-400); Red Blood Count 5.63 X10*6/uL (4.60-5.80); Red Cell Distribution Width 13.5 % (11.0-16.0); White Blood Count 12.3 X10*3/uL (4.8-10.8)
[2022-11-27 23:07] LABS: Amphetamine Screen Urine Not Detected (Not Detect); Barbiturates, Urine Not Detected (Not Detect); Benzodiazepines Screen Urine Not Detected (Not Detect); Cannabinoid Screen Urine Not Detected (Not Detect); Cocaine Screen Urine Not Detected (Not Detect); Fentanyl, urine Not Detected (Not Detect); Opiate Screen Urine Not Detected (Not Detect); Phencyclidine Screen Urine Not Detected (Not Detect)
[2022-11-27 23:27] LABS: Alanine Aminotransferase 29 U/L (0-40); Albumin Level 4.9 g/dL (3.5-5.0); Alkaline Phosphatase 101 U/L (39-117); Anion Gap 14 (12-20); Aspartate Amino Transferase 22 U/L (5-37); Bilirubin Total 0.6 mg/dL (0.0-1.0); Blood Urea Nitrogen 11 mg/dL (9-16); Calcium 10.2 mg/dL (8.4-10.2); Carbon Dioxide 21 mmol/L (22-29); Chloride 106 mmol/L (96-108); Creatinine Clr Calc Pharmacy 94.5; Estimated Glomerular Filt Rate > 60; Glucose Random 153 mg/dL (60-115); Potassium 3.8 mmol/L (3.3-5.1); Sodium 137 mmol/L (135-145); Total Protein 8.2 g/dL (6.5-8.0)
[2022-11-27] MEDS: LORazepam 1 MG TABLET 2 MG PO (23:38)
[2022-11-27 23:41] LABS: Ethanol < 10 mg/dL
--- NOTE | 2022-11-27 23:48 | ED.PSYCH ---
HPI - Psych General Chief Complaint: Psychiatric Symptoms Stated Complaint: SI Time Seen by Provider: 11/27/22 22:32 Source: patient Mode of arrival: EMS Limitations: no limitations History of Present Illness HPI Narrative: Patient is a 62-year-old male who presents emergency department via EMS with suicidal ideations. He expresses these thoughts as he believes that his current is going to contest his divorce which he does not want her to do. He states that he called [facility] today and told them that he planned on not taking his medications and that he had a knife in front of him that he ultimately put back in the kitchen. Police were called to his home, which he reports he then went back to the kitchen and obtained a nice with the intention of harming himself although he did not use this. At this time he continues to report suicidal ideations, but states he would like to be discharged home as he is concerned about who will assume care of his cat in his absence. He denies any physical complaints. Denies any drug or alcohol usage. Related Data Home Medications Medication Instructions Recorded Confirmed albuterol sulfate 2.5 mg/3 mL 2.5 mg inhalation Q4-6H PRN 06/16/21 11/27/22 (0.083 %) solution for nebulization Wheezing atorvastatin 10 mg tablet 10 mg PO DAILY 11/27/22 11/27/22 benztropine 1 mg tablet 1 mg PO BID 11/27/22 11/27/22 chlorpromazine 100 mg tablet 100 mg PO BEDTIME 11/27/22 11/27/22 docusate sodium 100 mg capsule 200 mg PO DAILY 11/27/22 11/27/22 famotidine 40 mg tablet 40 mg PO BID 11/27/22 11/27/22 gabapentin 100 mg capsule 100 mg PO TID 11/27/22 11/27/22 hydroxyzine HCl 25 mg tablet 25 - 50 mg PO DAILY anxiety 11/27/22 11/27/22 lamotrigine 200 mg tablet 200 mg PO BEDTIME 11/27/22 11/27/22 lamotrigine 25 mg tablet 50 mg PO BID 11/27/22 11/27/22 lisinopril 5 mg tablet 5 mg PO DAILY 11/27/22 11/27/22 mirtazapine 7.5 mg tablet 7.5 mg PO BEDTIME 11/27/22 11/27/22 propranolol 60 mg tablet 60 mg PO BID 11/27/22 11/27/22 ramelteon 8 mg tablet 8 mg PO BEDTIME 11/27/22 11/27/22 sennosides 8.6 mg tablet (Tenisha-mango) 17.2 mg PO DAILY PRN constipation 11/27/22 11/27/22 topiramate 50 mg tablet 50 mg PO DAILY 11/27/22 11/27/22 Allergies Allergy/AdvReac Type Severity Reaction Status Date / Time aspirin [ASPIRIN] Allergy Unknown NOSE BLEEDS Verified 11/18/20 14:53 haloperidol [From HALDOL] Allergy Unknown EYES ROLL Verified 11/18/20 14:53 ibuprofen [IBUPROFEN] Allergy Unknown NOSE BLEEDS Verified 11/18/20 14:53 lactose [LACTOSE] Allergy Unknown DIARRHEA Verified 11/18/20 14:53 Penicillins [PENICILLINS] Allergy Unknown NAUSEA Verified 11/18/20 14:53 pineapple [PINEAPPLE] Allergy Unknown ITCHING,LISETH Verified 11/18/20 14:53 H dairy Allergy Unknown Unknown Uncoded 11/18/20 14:53 pineapple Allergy Unknown Unknown Uncoded 11/18/20 14:53 SEASONAL ALLERGIES Allergy Unknown SNEEZING,FACE Uncoded 12/11/19 16:07 SWELLING Review of Systems Review of Systems: Constitutional : No Fever, No Chills ENT/Mouth : No Ear Pain, No Nasal Congestion, No sore throat Eyes: No Eye Pain, No Swelling, No Redness Cardiovascular : No Chest Pain, No SOB Respiratory : No Cough, No Sputum, No Dyspnea Gastrointestinal : No Nausea, No Vomiting, No Diarrhea, No Hematochezia, No Melena Genitourinary : No Dysuria, No Urinary Frequency, No Hematuria Musculoskeletal : No Myalgias Skin : No Skin Lesions, No rash Neuro : No Weakness, No Numbness, No Paresthesias, No Dizziness, No Headache Psych : positive Anxiety, positive Depression, positive SI/HI Heme/Lymph: No Lymphadenopathy Endocrine : No Polyuria, No Polydipsia Yes all other systems are reviewed and are negative [facility] Past Medical History Attestation statement: The following information was validated with the patient. Source: old records reviewed Medical History Bipolar disorder Cognitive developmental delay Diabetes Dizziness HTN (hypertension) Hyponatremia Impulse control disorder PTSD (post-traumatic stress disorder) Syncope Social History Social History Household Members: None Housing: Apartment Do you presently have visiting nurse or other home services: Yes ([facility] daily) Alcohol intake: never Patient Tobacco Use Status: Never used Tobacco Advance Directives: No Advance Directives Information Provided: Yes service: No Current occupational status: disabled Physical Exam Vital Signs: Vital Signs: Last Vital Signs Temp 97.7 F 11/27/22 22:26 Pulse 83 11/27/22 22:26 Resp 16 11/27/22 22:53 BP 151/90 H 11/27/22 22:26 Pulse Ox 96 11/27/22 22:26 O2 Del Method Room Air 11/27/22 22:26 BMI result Body Mass Index 31.9 Appearance: Alert.?Oriented to person, place and time. No acute distress.?Normal affect. Eyes: Pupils equal, round and reactive to light.? ENT: Pharynx normal.?? Neck: Normal inspection.? Neck supple.?? CVS: Heart sounds normal. Normal heart rate and rhythm.? Pulses normal.?? Respiratory: No respiratory distress.? Lung sounds clear to auscultation bilaterally?? Abdomen: Soft and non-tender. Normoactive bowel sounds. ?? Skin: Skin warm and dry.? Normal skin color.? ? Extremities: No lower extremity edema.? ? Neuro: Moves all extremities spontaneously. Sensation intact bilaterally. CN II-XII intact. No focal neuro deficits. Ambulates with normal steady gait. Medications Administered Generic Name Dose Route Start Last Admin Trade Name Freq PRN Reason Stop Dose Admin Benztropine Mesylate 1 mg 11/27/22 23:30 11/27/22 23:56 Benztropine Mesylate 1 Mg Tablet PO 1 mg BID TAI Administration Chlorpromazine HCl 100 mg 11/27/22 23:30 11/27/22 23:56 Chlorpromazine Hcl 100 Mg Tablet PO 100 mg BEDTIME TAI Administration Famotidine 40 mg 11/27/22 23:30 11/27/22 23:55 Famotidine 20 Mg Tablet PO 40 mg BID TAI Administration Gabapentin 100 mg 11/27/22 23:30 11/27/22 23:55 Gabapentin 100 Mg Capsule PO 100 mg TID TAI Administration Lamotrigine 50 mg 11/27/22 23:30 11/27/22 23:56 Lamotrigine 25 Mg Tablet PO 50 mg BID TAI Administration Lamotrigine 200 mg 11/27/22 23:30 11/27/22 23:56 Lamotrigine 100 Mg Tablet PO 200 mg BEDTIME TAI Administration Mirtazapine 7.5 mg 11/27/22 23:30 11/27/22 23:56 Mirtazapine 7.5 Mg Tablet PO 7.5 mg BEDTIME TAI Administration Propranolol HCl 60 mg 11/27/22 23:30 11/27/22 23:56 Propranolol Hcl 20 Mg Tablet PO 60 mg BID TAI Administration Protocol Discontinued Medications Generic Name Dose Route Start Last Admin Trade Name Kourtney PRN Reason Stop Dose Admin Lorazepam 2 mg 11/27/22 23:31 11/27/22 23:38 Lorazepam 1 Mg Tablet PO 11/27/22 23:32 2 mg ONCE ONE Administration Medical Decision Making Medical Decision Making [facility] Narrative: Patient is a 62-year-old male past medical history of bipolar disorder, cognitive delay, diabetes, hypertension, hyponatremia, PTSD presenting to emergency department for evaluation of suicidal ideations with a plan is to utilize a knife. Is calm cooperative at the time of my examination, easily redirectable. No physical complaints, and physical examination is benign. Will obtain basic labs medical clearance and refer to care team for evaluation as to whether inpatient psychiatric services would be required at this time. Differential Diagnosis Differential Diagnoses: The differential diagnosis associated with the presentation includes (Suicidal ideation, bipolar disorder, substance use, metabolic encephalopathy) Admission/Observation Consideration of admission/observation: Escalation of care including admission/observation considered (Observation so that care team evaluation can ensue) Consult Healthcare Provider Management of the patient was discussed with: Behavioral Health Provider (Care team) Lab Data [facility] Lab Attestation statement: I reviewed the patient's lab results. CBC and CMP are overall unremarkable. Urinalysis is without evidence of infection. Toxicology testing is negative. 11/27/22 23:01 11/27/22 23:01 Labs: Lab Results 11/27/22 11/27/22 11/27/22 Range/Units 22:48 22:48 23:01 WBC 12.3 H (4.8-10.8) X10*3/uL RBC 5.63 (4.60-5.80) X10*6/uL Hgb 16.9 D (14.0-18.0) g/dl Hct 47.0 (42.0-52.0) % MCV 83.5 (80.0-98.0) fL MCH 30.0 (27.0-33.0) pg MCHC 36.0 (31.0-36.0) g/dl RDW 13.5 (11.0-16.0) % Plt Count 274 (160-400) X10*3/uL MPV 9.1 L (9.4-12.4) fL Immature Gran % (Auto) 0.3 (0.0-0.4) % Neut % (Auto) 71.4 (45-73) % Lymph % (Auto) 20.5 (20-40) % [place] % (Auto) 7.2 (2-11) % Eos % (Auto) 0.4 (0-4) % Baso % (Auto) 0.2 (0-2) % Lymph # (Auto) 2.5 (1.2-4.9) X10*3/uL [place] # (Auto) 0.9 (0.1-1.2) X10*3/uL Eos # (Auto) 0.1 (0.0-0.4) X10*3/uL Baso # (Auto) 0.0 (0.0-0.2) X10*3/uL Abs Immat Gran (auto) 0.04 H (0.00-0.03) X10*3/uL Absolute Neuts (auto) 8.8 H (2.0-8.3) x10*3/uL Absolute Nucleated RBC 0.000 (0.0-0.012) X10*3/uL Nucleated RBC % (auto) 0.0 (0.0-0.2) /100WBC Sodium (135-145) mmol/L Potassium (3.3-5.1) mmol/L Chloride (96-108) mmol/L Carbon Dioxide (22-29) mmol/L Anion Gap (12-20) BUN (9-16) mg/dL Creatinine (0.5-1.4) mg/dL Estim Creat Clear Calc Estimated GFR Random Glucose (60-115) mg/dL Calcium (8.4-10.2) mg/dL Total Bilirubin (0.0-1.0) mg/dL AST (5-37) U/L ALT (0-40) U/L Alkaline Phosphatase (39-117) U/L Total Protein (6.5-8.0) g/dL Albumin (3.5-5.0) g/dL Urine Color Yellow Urine Appearance Clear Urine pH 5.5 (5.0-9.0) Ur Specific [place] 1.020 (1.005-1.025) Urine Protein Negative (Neg-Trace) mg/dL Urine Glucose (UA) Negative (Negative) mg/dL Urine Ketones Negative (Negative) mg/dL Urine Blood Negative (Negative) Urine Nitrite Negative (Negative) Ur Leukocyte Esterase Negative (Negative) Urine Opiates Screen Not Detected (Not Detect) Urine Fentanyl Screen Not Detected (Not Detect) Ur Barbiturates Screen Not Detected (Not Detect) Ur Phencyclidine Scrn Not Detected (Not Detect) Ur Amphetamines Screen Not Detected (Not Detect) U Benzodiazepines Scrn Not Detected (Not Detect) Urine Cocaine Screen Not Detected (Not Detect) U Marijuana (THC) Screen Not Detected (Not Detect) Ethyl Alcohol mg/dL 11/27/22 11/27/22 Range/Units 23:01 23:01 WBC (4.8-10.8) X10*3/uL RBC (4.60-5.80) X10*6/uL Hgb (14.0-18.0) g/dl Hct (42.0-52.0) % MCV (80.0-98.0) fL MCH (27.0-33.0) pg MCHC (31.0-36.0) g/dl RDW (11.0-16.0) % Plt Count (160-400) X10*3/uL MPV (9.4-12.4) fL Immature Gran % (Auto) (0.0-0.4) % Neut % (Auto) (45-73) % Lymph % (Auto) (20-40) % [place] % (Auto) (2-11) % Eos % (Auto) (0-4) % Baso % (Auto) (0-2) % Lymph # (Auto) (1.2-4.9) X10*3/uL [place] # (Auto) (0.1-1.2) X10*3/uL Eos # (Auto) (0.0-0.4) X10*3/uL Baso # (Auto) (0.0-0.2) X10*3/uL Abs Immat Gran (auto) (0.00-0.03) X10*3/uL Absolute Neuts (auto) (2.0-8.3) x10*3/uL Absolute Nucleated RBC (0.0-0.012) X10*3/uL Nucleated RBC % (auto) (0.0-0.2) /100WBC Sodium 137 (135-145) mmol/L Potassium 3.8 (3.3-5.1) mmol/L Chloride 106 (96-108) mmol/L Carbon Dioxide 21 L (22-29) mmol/L Anion Gap 14 (12-20) BUN 11 (9-16) mg/dL Creatinine 0.93 (0.5-1.4) mg/dL Estim Creat Clear Calc 94.5 Estimated GFR > 60 Random Glucose 153 H (60-115) mg/dL Calcium 10.2 D (8.4-10.2) mg/dL Total Bilirubin 0.6 (0.0-1.0) mg/dL AST 22 (5-37) U/L ALT 29 (0-40) U/L Alkaline Phosphatase 101 (39-117) U/L Total Protein 8.2 H (6.5-8.0) g/dL Albumin 4.9 (3.5-5.0) g/dL Urine Color Urine Appearance Urine pH (5.0-9.0) Ur Specific [place] (1.005-1.025) Urine Protein (Neg-Trace) mg/dL Urine Glucose (UA) (Negative) mg/dL Urine Ketones (Negative) mg/dL Urine Blood (Negative) Urine Nitrite (Negative) Ur Leukocyte Esterase (Negative) Urine Opiates Screen (Not Detect) Urine Fentanyl Screen (Not Detect) Ur Barbiturates Screen (Not Detect) Ur Phencyclidine Scrn (Not Detect) Ur Amphetamines Screen (Not Detect) U Benzodiazepines Scrn (Not Detect) Urine Cocaine Screen (Not Detect) U Marijuana (THC) Screen (Not Detect) Ethyl Alcohol < 10 mg/dL Independent Historian Clinical information obtained from an independent historian. History obtained from or confirmed by: EMS External Record Review External record reviewed: Outpatient record Discharge Plan Discharge Clinical Impression: Suicidal ideation Patient Disposition: Still a Patient Prescriptions: No Action albuterol sulfate 2.5 mg /3 mL (0.083 %) Solution For Nebulization 2.5 mg INHALATION Q4-6H PRN (Reason: Wheezing) sennosides [Tenisha-mango] 8.6 mg tablet 17.2 mg PO DAILY PRN (Reason: constipation) lamotrigine 200 mg tablet 200 mg PO BEDTIME atorvastatin 10 mg tablet 10 mg PO DAILY chlorpromazine 100 mg tablet 100 mg PO BEDTIME famotidine 40 mg tablet 40 mg PO BID propranolol 60 mg tablet 60 mg PO BID lamotrigine 25 mg tablet 50 mg PO BID benztropine 1 mg tablet 1 mg PO BID hydroxyzine HCl 25 mg tablet 25 - 50 mg PO DAILY gabapentin 100 mg capsule 100 mg PO TID topiramate 50 mg tablet 50 mg PO DAILY mirtazapine 7.5 mg tablet 7.5 mg PO BEDTIME ramelteon 8 mg tablet 8 mg PO BEDTIME docusate sodium 100 mg capsule 200 mg PO DAILY lisinopril 5 mg tablet 5 mg PO DAILY Interventions: [place]-Suicide Risk Severity Scale Last Done: 11/27/22 22:51
[2022-11-27] MEDS: Gabapentin 100 MG CAPSULE PO (23:55)
[2022-11-27] MEDS: Famotidine 20 MG TABLET 40 MG PO (23:55)
[2022-11-27] MEDS: chlorproMAZINE HCl 100 MG TABLET PO (23:56)
[2022-11-27] MEDS: lamoTRIgine 25 MG TABLET 50 MG PO (23:56)
[2022-11-27] MEDS: Propranolol HCL 20 MG TABLET 60 MG PO (23:56)
[2022-11-27] MEDS: Benztropine Mesylate 1 MG TABLET PO (23:56)
[2022-11-27] MEDS: lamoTRIgine 100 MG TABLET 200 MG PO (23:56)
[2022-11-27] MEDS: Mirtazapine 7.5 MG TABLET PO (23:56)
[2022-11-28 00:56] VITALS: BP 119/75; PULSE 78; RESP 12; TEMP 36.4; O2SAT 96
[2022-11-28 01:19] LABS: COVID-19 Test Negative (Negative); IDNOW Serial# 08D9AD1C
--- NOTE | 2022-11-28 06:35 | PC.NURSE ---
Patient slept through the night, no distress observed/reported, Ativan 2 mg PO administered at 2338 with + effect, medication compliant, mood labile, behavior unpredictable but re-directable, care consult ordered/pending evaluation, VSS, labs completed/resulted, will continue to monitor.
--- NOTE | 2022-11-28 07:30 | PC.NURSE ---
Assumed care of pt at 0700. Patient resting quietly in back area. No apparent distress.
[2022-11-28 08:12] VITALS: BP 126/82; PULSE 85; RESP 16; TEMP 36.3; O2SAT 95
[2022-11-28] MEDS: lamoTRIgine 25 MG TABLET 50 MG PO (08:21)
[2022-11-28] MEDS: Propranolol HCL 20 MG TABLET 60 MG PO (08:22)
[2022-11-28] MEDS: lisinopriL 5 MG TABLET PO (08:22)
[2022-11-28] MEDS: Docusate Sodium 100 MG CAPSULE 200 MG PO (08:23)
[2022-11-28] MEDS: Benztropine Mesylate 1 MG TABLET PO (08:23)
[2022-11-28] MEDS: Topiramate 25 MG TABLET 50 MG PO (08:23)
[2022-11-28] MEDS: hydrOXYzine HCL 50 MG TABLET PO (08:23)
[2022-11-28] MEDS: Atorvastatin Calcium 10 MG TABLET PO (08:23)
[2022-11-28] MEDS: Gabapentin 100 MG CAPSULE PO (08:26)
[2022-11-28] MEDS: Famotidine 20 MG TABLET 40 MG PO (08:26)
== END 2022-11-28 12:24 | disposition home or self-care (01) ==
PROVIDERS: Nurse Practitioner Family; Emergency Provider Student in an Organized Health Care Education/Training Program; PCP Family Medicine
DX: R45.851 Suicidal ideations (principal); Z63.5 Disruption of family by separation and divorce; Z79.899 Other long term (current) drug therapy; Z20.822 Contact with and (suspected) exposure to COVID-19; Z20.828 Contact with and (suspected) exposure to other viral communicable diseases
CPT/HCPCS: 36415; 80053; 80307; 81003; 85025; 87635; 99284; S9485

== ENCOUNTER 2022-12-01 15:19 | Emergency (ER) | payer MEDICARE, MEDICAID, SELFPAY ==
[2022-12-01 16:19] VITALS: BP 152/73; PULSE 69; RESP 18; TEMP 36.6; O2SAT 96; BMI 31.0
[2022-12-01 16:51] LABS: MANUAL DIFF FLAG NO
[2022-12-01 16:53] LABS: Basophils Percent Auto 0.3 % (0-2); Eosinophils Absolute Auto 0.1 X10*3/uL (0.0-0.4); Eosinophils Percent Auto 1.1 % (0-4); Hematocrit 43.4 % (42.0-52.0); Hemoglobin 15.1 g/dl (14.0-18.0); Imm Gran Abs Auto 0.03 X10*3/uL (0.00-0.03); Imm Gran Pct Auto 0.3 % (0.0-0.4); Lymphocytes Absolute Auto 2.7 X10*3/uL (1.2-4.9); Lymphocytes Percent Auto 30.2 % (20-40); Mean Corpuscular HGB Conc 34.8 g/dl (31.0-36.0); Mean Corpuscular Hemoglobin 29.6 pg (27.0-33.0); Mean Corpuscular Volume 85.1 fL (80.0-98.0); Mean Platelet Volume 9.1 fL (9.4-12.4); Monocytes Absolute Auto 0.7 X10*3/uL (0.1-1.2); Monocytes Percent Auto 8.1 % (2-11); Neutrophils Absolute Auto 5.3 x10*3/uL (2.0-8.3); Platelet Count 248 X10*3/uL (160-400); Red Cell Distribution Width 13.5 % (11.0-16.0); White Blood Count 8.9 X10*3/uL (4.8-10.8)
[2022-12-01 16:58] LABS: Appearance Urine Clear; Color Urine Yellow; Glucose Urine UA Negative (Negative); Leukocyte Esterase Urine Negative (Negative); Nitrite Urine Negative (Negative); Urine Blood Negative (Negative); Urine Ketones Negative (Negative); Urine Protein Negative (Neg-Trace)
[2022-12-01 17:03] LABS: Bacteria Urine None Seen (None Seen); RBC Urine 0-2 /HPF (0-2); Squamous Epithelial Cell Urine 0-2 /HPF (0-2); WBC Urine 0-5 /HPF (0-5)
[2022-12-01 17:11] LABS: Anion Gap 11 (12-20); Blood Urea Nitrogen 14 mg/dL (9-16); Calcium 9.5 mg/dL (8.4-10.2); Carbon Dioxide 23 mmol/L (22-29); Chloride 107 mmol/L (96-108); Estimated Glomerular Filt Rate > 60; Glucose Random 178 mg/dL (60-115); Potassium 3.8 mmol/L (3.3-5.1); Sodium 137 mmol/L (135-145)
[2022-12-01 19:32] VITALS: BP 144/87; PULSE 76; RESP 18; TEMP 36.6; O2SAT 96
--- NOTE | 2022-12-01 21:47 | ED.BACK ---
HPI - Back Pain/Injury General Chief Complaint: Back Pain/Injury Stated Complaint: threw back out, cant stand up straight Time Seen by Provider: 12/01/22 21:46 Source: patient Mode of arrival: ambulatory Limitations: no limitations History of Present Illness HPI Narrative: Patient was lifting some bottles 3 days noticed pain on left side of the back no radiation of the pain no muscle weakness patient does get pain off and on no bladder bowel involved patient ambulatory as such no fever no chills Related Data Home Medications Medication Instructions Recorded Confirmed albuterol sulfate 2.5 mg/3 mL 2.5 mg inhalation Q4-6H PRN 06/16/21 11/27/22 (0.083 %) solution for nebulization Wheezing atorvastatin 10 mg tablet 10 mg PO DAILY 11/27/22 11/27/22 benztropine 1 mg tablet 1 mg PO BID 11/27/22 11/27/22 chlorpromazine 100 mg tablet 100 mg PO BEDTIME 11/27/22 11/27/22 docusate sodium 100 mg capsule 200 mg PO DAILY 11/27/22 11/27/22 famotidine 40 mg tablet 40 mg PO BID 11/27/22 11/27/22 gabapentin 100 mg capsule 100 mg PO TID 11/27/22 11/27/22 hydroxyzine HCl 25 mg tablet 25 - 50 mg PO DAILY anxiety 11/27/22 11/27/22 lamotrigine 200 mg tablet 200 mg PO BEDTIME 11/27/22 11/27/22 lamotrigine 25 mg tablet 50 mg PO BID 11/27/22 11/27/22 lisinopril 5 mg tablet 5 mg PO DAILY 11/27/22 11/27/22 mirtazapine 7.5 mg tablet 7.5 mg PO BEDTIME 11/27/22 11/27/22 propranolol 60 mg tablet 60 mg PO BID 11/27/22 11/27/22 ramelteon 8 mg tablet 8 mg PO BEDTIME 11/27/22 11/27/22 sennosides 8.6 mg tablet (Tenisha-mango) 17.2 mg PO DAILY PRN constipation 11/27/22 11/27/22 topiramate 50 mg tablet 50 mg PO DAILY 11/27/22 11/27/22 Previous Rx's Medication Instructions Recorded cyclobenzaprine 10 mg tablet 10 mg PO Q8H #20 tabs 09/08/23 tramadol 50 mg tablet 50 mg PO Q6H PRN pain #20 tabs 12/01/22 Allergies Allergy/AdvReac Type Severity Reaction Status Date / Time aspirin [ASPIRIN] Allergy Unknown NOSE BLEEDS Verified 12/01/22 16:18 haloperidol [From HALDOL] Allergy Unknown EYES ROLL Verified 12/01/22 16:18 ibuprofen [IBUPROFEN] Allergy Unknown NOSE BLEEDS Verified 12/01/22 16:18 lactose [LACTOSE] Allergy Unknown DIARRHEA Verified 12/01/22 16:18 Penicillins [PENICILLINS] Allergy Unknown NAUSEA Verified 12/01/22 16:18 pineapple [PINEAPPLE] Allergy Unknown ITCHING,LISETH Verified 12/01/22 16:18 H dairy Allergy Unknown Unknown Uncoded 12/01/22 16:18 pineapple Allergy Unknown Unknown Uncoded 12/01/22 16:18 SEASONAL ALLERGIES Allergy Unknown SNEEZING,FACE Uncoded 12/01/22 16:18 SWELLING Review of Systems Review of Systems: Yes all other systems are reviewed and are negative [facility] Past Medical History Medical History Hyponatremia Syncope Dizziness PTSD (post-traumatic stress disorder) Impulse control disorder Bipolar disorder Cognitive developmental delay HTN (hypertension) Diabetes Social History Social History Household Members: None Housing: Apartment Do you presently have visiting nurse or other home services: Yes ([facility]NA daily) Alcohol intake: never Patient Tobacco Use Status: Never used Tobacco Smoked in Last 30 Days: No Use of substances other than those prescribed or required for medical reasons: No Advance Directives: No Advance Directives Information Provided: Yes service: No Current occupational status: disabled Physical Exam Vital Signs: Vital Signs: Last Vital Signs Temp 97.8 F 12/01/22 19:32 Pulse 76 12/01/22 19:32 Resp 18 12/01/22 19:32 BP 144/87 H 12/01/22 19:32 Pulse Ox 96 12/01/22 19:32 O2 Del Method Room Air 12/01/22 19:32 BMI result Body Mass Index 31.0 Appearance: Alert. Oriented X3. No acute distress. Eyes: PERRLA, No Nystagmus ENT: Pharynx normal. Oral Mucosa moist Neck: Normal inspection. Neck supple. CVS: Normal heart rate and rhythm. Pulses normal. Respiratory: No respiratory distress. Equal air entry bilateral, no wheezing/rales/rhonchi Abdomen: Soft and nontender. Bowel sounds are present, no mass palpable, no CVA tenderness back: Left lumbar paraspinal tenderness, no midline tenderness SLR normal b/l, patient ambulatory Skin: Skin warm and dry. Normal skin color. Normal skin turgor. Extremities: No lower extremity edema. No calf tenderness Neuro: Oriented X 3. No motor deficit. No sensory deficit.No cerebellar signs , cranial nerves II-XII intact Medications Administered Discontinued Medications Generic Name Dose Route Start Last Admin Trade Name Freq PRN Reason Stop Dose Admin Morphine Sulfate 15 mg 12/01/22 22:07 12/01/22 22:25 Morphine Sulfate Immed Release 15 Mg Tablet PO 12/01/22 22:08 15 mg ONCE ONE Administration Medical Decision Making Lab Data 12/01/22 16:45 12/01/22 16:46 Labs: Lab Results 12/01/22 12/01/22 Range/Units 16:45 16:46 WBC 8.9 (4.8-10.8) X10*3/uL RBC 5.10 (4.60-5.80) X10*6/uL Hgb 15.1 (14.0-18.0) g/dl Hct 43.4 (42.0-52.0) % MCV 85.1 (80.0-98.0) fL MCH 29.6 (27.0-33.0) pg MCHC 34.8 (31.0-36.0) g/dl RDW 13.5 (11.0-16.0) % Plt Count 248 (160-400) X10*3/uL MPV 9.1 L (9.4-12.4) fL Immature Gran % (Auto) 0.3 (0.0-0.4) % Neut % (Auto) 60.0 (45-73) % Lymph % (Auto) 30.2 (20-40) % [place] % (Auto) 8.1 (2-11) % Eos % (Auto) 1.1 (0-4) % Baso % (Auto) 0.3 (0-2) % Lymph # (Auto) 2.7 (1.2-4.9) X10*3/uL [place] # (Auto) 0.7 (0.1-1.2) X10*3/uL Eos # (Auto) 0.1 (0.0-0.4) X10*3/uL Baso # (Auto) 0.0 (0.0-0.2) X10*3/uL Abs Immat Gran (auto) 0.03 (0.00-0.03) X10*3/uL Absolute Neuts (auto) 5.3 (2.0-8.3) x10*3/uL Absolute Nucleated RBC 0.000 (0.0-0.012) X10*3/uL Nucleated RBC % (auto) 0.0 (0.0-0.2) /100WBC Sodium 137 (135-145) mmol/L Potassium 3.8 (3.3-5.1) mmol/L Chloride 107 (96-108) mmol/L Carbon Dioxide 23 (22-29) mmol/L Anion Gap 11 L (12-20) BUN 14 (9-16) mg/dL Creatinine 1.04 (0.5-1.4) mg/dL Estim Creat Clear Calc 86.0 Estimated GFR > 60 Random Glucose 178 H (60-115) mg/dL Calcium 9.5 D (8.4-10.2) mg/dL Urine Color Yellow Urine Appearance Clear Urine pH 6.0 (5.0-9.0) Ur Specific [place] 1.020 (1.005-1.025) Urine Protein Negative (Neg-Trace) mg/dL Urine Glucose (UA) Negative (Negative) mg/dL Urine Ketones Negative (Negative) mg/dL Urine Blood Negative (Negative) Urine Nitrite Negative (Negative) Ur Leukocyte Esterase Negative (Negative) Urine RBC 0-2 (0-2) /HPF Urine WBC 0-5 (0-5) /HPF Ur Squamous Epith Cells 0-2 (0-2) /HPF Urine Bacteria None Seen (None Seen) Hyaline Casts 3-5 (0-2) /LPF Discharge Plan Discharge Clinical Impression: Strain of lumbar region Patient Disposition: Home, Self-Care Instructions: Low Back Strain (ED) Additional Instructions: Take pain medication and muscle relaxant as prescribed Follow with PCP if not better Prescriptions: New cyclobenzaprine 10 mg tablet 10 mg PO Q8H Qty: 20 0RF tramadol 50 mg tablet 50 mg PO Q6H PRN (Reason: pain) Qty: 20 0RF No Action albuterol sulfate 2.5 mg /3 mL (0.083 %) Solution For Nebulization 2.5 mg INHALATION Q4-6H PRN (Reason: Wheezing) sennosides [Tenisha-mango] 8.6 mg tablet 17.2 mg PO DAILY PRN (Reason: constipation) lamotrigine 200 mg tablet 200 mg PO BEDTIME atorvastatin 10 mg tablet 10 mg PO DAILY chlorpromazine 100 mg tablet 100 mg PO BEDTIME famotidine 40 mg tablet 40 mg PO BID propranolol 60 mg tablet 60 mg PO BID lamotrigine 25 mg tablet 50 mg PO BID benztropine 1 mg tablet 1 mg PO BID hydroxyzine HCl 25 mg tablet 25 - 50 mg PO DAILY gabapentin 100 mg capsule 100 mg PO TID topiramate 50 mg tablet 50 mg PO DAILY mirtazapine 7.5 mg tablet 7.5 mg PO BEDTIME ramelteon 8 mg tablet 8 mg PO BEDTIME docusate sodium 100 mg capsule 200 mg PO DAILY lisinopril 5 mg tablet 5 mg PO DAILY Interventions: ED Discharge Assessment Last Done: 12/01/22 22:28 Discharge Date/Time: 12/01/22 22:29
[2022-12-01] MEDS: Morphine Sulfate Immed Release 15 MG TABLET PO (22:25)
== END 2022-12-01 22:29 | disposition home or self-care (01) ==
PROVIDERS: Emergency Provider Internal Medicine; PCP Family Medicine
DX: S39.012A Strain of muscle, fascia and tendon of lower back, initial encounter (principal); X50.0XXA Overexertion from strenuous movement or load, initial encounter; Y93.89 Activity, other specified; Y92.9 Unspecified place or not applicable; Y99.9 Unspecified external cause status
CPT/HCPCS: 36415; 80048; 81001; 85025; 99283; 99284

== ENCOUNTER 2023-01-29 16:10 | Outpatient (REF) | payer MEDICARE, MEDICAID, SELFPAY ==
[2023-01-29 17:20] LABS: Anion Gap 13 (12-20); Blood Urea Nitrogen 10 mg/dL (9-16); Calcium 9.7 mg/dL (8.4-10.2); Carbon Dioxide 25 mmol/L (22-29); Chloride 105 mmol/L (96-108); Estimated Glomerular Filt Rate > 60; Potassium 3.9 mmol/L (3.3-5.1); Sodium 139 mmol/L (135-145)
== END 2023-01-29 16:11 | disposition home or self-care (01) ==
LOC: HO.LAB 16:10
PROVIDERS: PCP Family Medicine; Visit Provider Internal Medicine Nephrology
DX: E11.9 Type 2 diabetes mellitus without complications (principal); E87.1 Hypo-osmolality and hyponatremia
CPT/HCPCS: 36415; 80051; 82310; 82565; 84520

== ENCOUNTER → 2023-09-26 10:03 | Outpatient (REF) | payer MEDICARE, MEDICAID, SELFPAY ==
--- NOTE | 2023-09-26 10:17 | ECG_ITS ---
Test Reason : z79.899 Blood Pressure : / mmHG Vent. Rate : 063 BPM Atrial Rate : 063 BPM P-R Int : 174 ms QRS Dur : 096 ms QT Int : 402 ms P-R-T Axes : 040 -06 093 degrees QTc Int : 411 ms Normal sinus rhythm Nonspecific T wave abnormality Abnormal ECG When compared with ECG of 21-JUN-2021 14:19, Nonspecific T wave abnormality, worse in Lateral leads Referred By: USMAN MALIN Electronically Signed By:ALMITA LEWIS
[2023-09-26 10:24] LABS: MANUAL DIFF FLAG NO
[2023-09-26 10:38] LABS: Basophils Percent Auto 0.2 % (0-2); Eosinophils Absolute Auto 0.1 X10*3/uL (0.0-0.4); Hematocrit 45.9 % (42.0-52.0); Hemoglobin 15.9 g/dl (14.0-18.0); Imm Gran Abs Auto 0.04 X10*3/uL (0.00-0.03); Imm Gran Pct Auto 0.5 % (0.0-0.4); Lymphocytes Percent Auto 24.4 % (20-40); Mean Corpuscular HGB Conc 34.6 g/dl (31.0-36.0); Mean Corpuscular Hemoglobin 30.3 pg (27.0-33.0); Mean Corpuscular Volume 87.4 fL (80.0-98.0); Monocytes Absolute Auto 0.6 X10*3/uL (0.1-1.2); Monocytes Percent Auto 7.5 % (2-11); Neutrophils Absolute Auto 5.4 x10*3/uL (2.0-8.3); Neutrophils Percent Auto 66.4 % (45-73); Platelet Count 220 X10*3/uL (160-400); Red Blood Count 5.25 X10*6/uL (4.60-5.80); Red Cell Distribution Width 13.7 % (11.0-16.0); White Blood Count 8.1 X10*3/uL (4.8-10.8)
[2023-09-26 10:45] LABS: Estimated Average Glucose 146 mg/dL; Hemoglobin A1c % 6.7 % (<6.0)
[2023-09-26 11:03] LABS: Alanine Aminotransferase 31 U/L (0-40); Albumin Level 4.5 g/dL (3.5-5.0); Alkaline Phosphatase 95 U/L (39-117); Anion Gap 12 (12-20); Aspartate Amino Transferase 20 U/L (5-37); Bilirubin Total 0.6 mg/dL (0.0-1.0); Blood Urea Nitrogen 9 mg/dL (9-16); Calcium 9.6 mg/dL (8.4-10.2); Carbon Dioxide 23 mmol/L (22-29); Chloride 108 mmol/L (96-108); Cholesterol 144 mg/dL (<200); Estimated Glomerular Filt Rate > 60; Glucose Random 159 mg/dL (60-115); HDL Cholesterol 43 mg/dL (>40); LDL Cholesterol Calculated 85 mg/dL (<100); Potassium 4.1 mmol/L (3.3-5.1); Sodium 139 mmol/L (135-145); Total Protein 7.3 g/dL (6.5-8.0); Triglycerides 83 mg/dL (<150)
== END ==
LOC: HO.CARD 10:03
PROVIDERS: PCP Family Medicine; Visit Provider Registered Nurse
DX: Z79.899 Other long term (current) drug therapy (principal)
CPT/HCPCS: 36415; 80053; 80061; 83036; 85025; 93005

== ENCOUNTER → 2023-09-26 10:17 | Outpatient (BNV) | payer MEDICARE, SELFPAY | PROVIDERS: PCP Family Medicine; Visit Provider Internal Medicine | DX: R94.31 Abnormal electrocardiogram [ECG] [EKG] (principal) | CPT/HCPCS: 93010 ==

== ENCOUNTER → 2024-09-29 15:33 | Outpatient (BNVA) | payer SELFPAY | PROVIDERS: PCP Family Medicine | DX: Z11.1 Encounter for screening for respiratory tuberculosis (principal) ==

== ENCOUNTER 2024-12-18 16:50 | Observation (INO) | payer MEDICARE, MEDICAID, SELFPAY ==
--- NOTE | ~2024-12-18 | XR_ITS ---
CLINICAL HISTORY: Stroke Protocol 1 view chest x-ray Comparison: None provided Findings: The lungs are clear. Heart size is normal. No acute fracture. IMPRESSION: 1. No acute findings. This document has been electronically signed by: Ines Long MD on 12/18/2024 18:06:29
--- NOTE | ~2024-12-18 | CT_ITS ---
CLINICAL HISTORY: Stroke Protocol CT angiography head and neck with contrast. 3D Postprocessing. Comparison: None provided Findings: Aortic arch and cervical great vessels are patent with no aneurysm, dissection, hemodynamically significant stenoses, or occlusion. Evaluation is limited by phase of contrast and imaging artifact. Intracranial arteries are patent. No aneurysm, dissection, hemodynamically significant stenoses, or occlusion. No abnormal intracranial enhancement. The visualized thyroid gland is unremarkable. No cervical mass or fluid collection. Lung apices clear. No acute fracture. IMPRESSION: Patent neck CTA. No large intracranial artery occlusion. This document has been electronically signed by: Ines Long MD on 12/18/2024 17:50:45
--- NOTE | ~2024-12-18 | MR_ITS ---
EXAMINATION: MR BRAIN WITHOUT CONTRAST CLINICAL INFORMATION: Slurred speech. Rule out stroke. COMPARISON: 11/19/2020. Correlation made with CT head, and CT angiography head and neck 12/18/2024. TECHNIQUE: MRI of the brain was obtained using routine sequences without contrast. Examination was performed on a 1.5 Sulema Siemens high-field unit. FINDINGS: There is no diffusion restriction. There is no intracranial hemorrhage, acute infarction, mass effect, or edema. Ventricles, sulci, and cisterns are normal in size and configuration for patient age. No shift of midline. No abnormal hemosiderin deposition is identified. There are a rare scattered tiny punctate foci of white matter T2 hyperintensity in the periventricular, subcortical, and hemispheric deep white matter. These foci are nonspecific but statistically most likely relate to small vessel ischemic changes. Midline structures appear normally formed. The pituitary gland appears normal. Posterior fossa structures appear normal. Cerebellar tonsils are appropriately located. Major flow voids are preserved within the skull base. The globes and orbital contents demonstrate no abnormalities. Paranasal sinuses are clear bilaterally. The mastoids and tympanic cavities are normally aerated. Extracranial soft tissues demonstrate no abnormalities. No suspicious bone marrow changes are evident. There are mild degenerative changes in both TM joints. Atlantoaxial joint demonstrates moderate degenerative changes. MR/MR head/brain wo con IMPRESSION: 1. No evidence of intracranial hemorrhage, acute infarction, mass effect, or edema. 2. There are minimal changes of small vessel ischemia. Electronically signed by: Jem Smyth MD 12/19/2024 10:12 AM EDT
--- NOTE | ~2024-12-18 | CT_ITS ---
CLINICAL HISTORY: Stroke Protocol CT head without contrast Comparison: None provided Findings: No intra-axial mass, midline shift, hydrocephalus, or acute hemorrhage. No significant atrophy-like change or white matter disease. There is no sinus or mastoid fluid. The orbits are within normal limits. No skull fracture. IMPRESSION: 1. No acute intracranial findings. This document has been electronically signed by: Ines Long MD on 12/18/2024 17:21:41
--- NOTE | 2024-12-18 16:55 | ECG_ITS ---
Test Reason : AMS Blood Pressure : */* mmHG Vent. Rate : 88 BPM Atrial Rate : 88 BPM P-R Int : 182 ms QRS Dur : 106 ms QT Int : 384 ms P-R-T Axes : 26 -45 75 degrees QTcB Int : 464 ms Normal sinus rhythm Left anterior fascicular block Minimal voltage criteria for LVH, may be normal variant ( R in aVL ) Abnormal ECG When compared with ECG of 26-Sep-2023 10:24, Left anterior fascicular block is now Present T wave inversion less evident in Lateral leads QT has lengthened Referred By: Lory Lira Electronically Signed By: Daniel Watson
[2024-12-18 16:58] VITALS: BP 158/78; PULSE 90; O2SAT 96; BMI 31.0
[2024-12-18 16:58] LABS: Glucose, Whole Blood 186 mg/dL (60-115)
--- NOTE | 2024-12-18 16:58 | ED.AMS ---
HPI - Altered Mental Status General Chief Complaint: Stroke Stated Complaint: headache,dizziness, AMS fast 4 Time Seen by Provider: 12/18/24 16:54 History of Present Illness HPI narrative: 60-year-old gentleman with past medical history significant for cognitive developmental delay, type 2 diabetes mellitus, hypertension, bipolar disorder lives at home with daily visit by? VNA. Noted by staff to have increasing confusion this morning when he woke up. Unsure as to when the last time patient was normal. Patient was also noted to have change in speech which is baseline but might have gotten worse. Has a history of diabetes was noted to have a sugar greater than 100 by EMS. No fever no chills. Patient has a baseline stroke which left him with some weakness and change in speech in the past. There has been no change in medication. Patient is not on any blood thinners. Related Data Home Medications ?Medication ?Instructions ?Recorded ?Confirmed albuterol sulfate 2.5 mg/3 mL 2.5 mg inhalation Q4-6H PRN 06/16/21 11/27/22 (0.083 %) solution for nebulization Wheezing atorvastatin 10 mg tablet 10 mg PO DAILY 11/27/22 11/27/22 benztropine 1 mg tablet 1 mg PO BID 11/27/22 11/27/22 chlorpromazine 100 mg tablet 100 mg PO BEDTIME 11/27/22 11/27/22 docusate sodium 100 mg capsule 200 mg PO DAILY 11/27/22 11/27/22 famotidine 40 mg tablet 40 mg PO BID 11/27/22 11/27/22 gabapentin 100 mg capsule 100 mg PO TID 11/27/22 11/27/22 hydroxyzine HCl 25 mg tablet 25 - 50 mg PO DAILY anxiety 11/27/22 11/27/22 lamotrigine 200 mg tablet 200 mg PO BEDTIME 11/27/22 11/27/22 lamotrigine 25 mg tablet 50 mg PO BID 11/27/22 11/27/22 lisinopril 5 mg tablet 5 mg PO DAILY 11/27/22 11/27/22 mirtazapine 7.5 mg tablet 7.5 mg PO BEDTIME 11/27/22 11/27/22 propranolol 60 mg tablet 60 mg PO BID 11/27/22 11/27/22 ramelteon 8 mg tablet 8 mg PO BEDTIME 11/27/22 11/27/22 sennosides 8.6 mg tablet (Tenisha-mango) 17.2 mg PO DAILY PRN constipation 11/27/22 11/27/22 topiramate 50 mg tablet 50 mg PO DAILY 11/27/22 11/27/22 Previous Rx's ?Medication ?Instructions ?Recorded cyclobenzaprine 10 mg tablet 10 mg PO Q8H #20 tabs 12/01/22 tramadol 50 mg tablet 50 mg PO Q6H PRN pain #20 tabs 12/01/22 Allergies Allergy/AdvReac Type Severity Reaction Status Date / Time aspirin (ASPIRIN) Allergy Unknown NOSE BLEEDS Verified 12/18/24 17:01 haloperidol (From HALDOL) Allergy Unknown EYES ROLL Verified 12/18/24 17:01 ibuprofen (IBUPROFEN) Allergy Unknown NOSE BLEEDS Verified 12/18/24 17:01 lactose (LACTOSE) Allergy Unknown DIARRHEA Verified 12/18/24 17:01 Penicillins (PENICILLINS) Allergy Unknown NAUSEA Verified 12/18/24 17:01 pineapple (PINEAPPLE) Allergy Unknown ITCHING,LISETH Verified 12/18/24 17:01 H dairy Allergy Unknown Unknown Uncoded 12/18/24 17:01 pineapple Allergy Unknown Unknown Uncoded 12/18/24 17:01 SEASONAL ALLERGIES Allergy Unknown SNEEZING,FACE Uncoded 12/18/24 17:01 SWELLING Review of Systems Review of Systems: Positive confusion Positive increasing weakness Yes all other systems are reviewed and are negative PMFSH Past Medical History Attestation statement: The following information was validated with the patient. Medical History Hyponatremia Syncope Dizziness PTSD (post-traumatic stress disorder) Impulse control disorder Bipolar disorder Cognitive developmental delay HTN (hypertension) Diabetes Social History Social History Household Members: None Housing: Apartment Do you presently have visiting nurse or other home services: Yes ([facility]NA daily) Alcohol intake: never Comment: 1;1 sitter at bedside Patient Tobacco Use Status: Never used Tobacco Smoked in Last 30 Days: No Use of substances other than those prescribed or required for medical reasons: No Advance Directives: No Advance Directives Information Provided: No Do you have a plan to hurt others: No Plan service: No Current occupational status: disabled Physical Exam ED Exam Exam: Appearance: Alert. Oriented X3. No acute distress. Eyes: Pupils equal, round and reactive to light. ENT: Pharynx normal. Neck: Normal inspection. Neck supple. No lymph nodes noted. No crepitus CVS: Normal heart rate and rhythm. Pulses normal. Normal S1 and S2 Respiratory: No respiratory distress. Breath sounds normal. No Wheezing. No rales Abdomen: Soft and nontender. No rigidity. No distention. good BS x4 Skin: Skin warm and dry. Normal skin color. Normal skin turgor. Extremities: No lower extremity edema. Neurovascular intact to all extremities. No Lacerations. No Rash Neuro: Oriented to self. Refused to answer any other question follows simple commands has good equal hand grasp bilaterally can not lift up the hands against gravity can not maintain both legs up against gravity for 5 seconds but can lift them bilaterally. Bilateral strength is about the same. Reflexes were 2+ at patella bilaterally please see NIH stroke scale Vital Signs: Vital Signs - 24 hr 12/18/24 17:05 12/18/24 19:05 12/18/24 19:30 Temperature 97.5 F 97.6 F Pulse Rate 88 74 85 Respiratory Rate 18 16 Blood Pressure 132/86 118/70 132/84 Pulse Oximetry 94 95 Oxygen Delivery Method Room Air Room Air 12/18/24 22:05 Temperature 97.6 F Pulse Rate 78 Respiratory Rate 14 Blood Pressure 114/68 Pulse Oximetry 95 Oxygen Delivery Method Room Air BMI result Body Mass Index 31.0 NIH Stroke Scale Internal: Initial- Upon Arrival Time: 17:00 Level of Consciousness: Alert Level of Consciousness Questions: Answers one question correctly Level of Consciousness Commands: Performs both tasks correctly Best Gaze: Normal Visual: No visual loss Facial Palsy: Minor paralyis Motor Arm (Right): Some effort against gravity Motor Arm (Left): Some effort against gravity Motor Leg (Right): Some effort against gravity Motor Leg (Left): Some effort against gravity Limb Ataxia: Absent Sensory: Normal Best Language: No aphasia Dysarthia: Mild to moderate dysarthria Extinction and Inattention: No abnormality Score: 11 Medications Administered Discontinued Medications Generic Name Dose Route Start Last Admin Trade Name Freq PRN Reason Stop Dose Admin Iohexol 100 ml 12/18/24 17:13 12/18/24 17:13 Iohexol 350 Mg/Ml 100 Ml Infus..Btl IV 12/18/24 17:14 60 ml ONCE ONE Administration Medical Decision Making Medical Decision Making [facility] Narrative: 64 years old presents today with having question worsening speech. Last time patient was noted to be normal was yesterday. Patient is white count is normal. Hemoglobin is normal. Urine showed no signs of infection. Electrolytes are unremarkable. Glucose is in the 140 to 160s range. Patient is COVID flu RSV were all negative. CT of the head was grossly negative by my interpretation. CT angio of the head and neck per radiology's interpretation was negative for any large vessel occlusion. Patient's chest x-ray by my interpretation showed no acute pneumonia no pneumothorax. Awake alert mumbles moving will discharge patient back to the senior living. Attempted to contact family but there is no reply. Differential Diagnosis Differential Diagnoses: The differential diagnosis associated with the presentation includes Electrolyte disturbance, CVA, UTI Admission/Observation Consideration of admission/observation: Escalation of care including admission/observation considered Lab Data [facility] Lab Attestation statement: I reviewed the patient's lab results. 12/18/24 18:18 12/18/24 18:18 Labs: Lab Results 12/18/24 12/18/24 12/18/24 Range/Units 16:54 18:18 18:34 WBC 7.8 (4.8-10.8) X10*3/uL RBC 5.15 (4.60-5.80) X10*6/uL Hgb 15.7 (14.0-18.0) g/dl Hct 43.4 (42.0-52.0) % MCV 84.3 (80.0-98.0) fL MCH 30.5 (27.0-33.0) pg MCHC 36.2 H (31.0-36.0) g/dl RDW 13.2 (11.0-16.0) % Plt Count 230 (160-400) X10*3/uL MPV 9.1 L (9.4-12.4) fL Immature Gran % (Auto) 0.3 (0.0-0.4) % Neut % (Auto) 63.0 (45-73) % Lymph % (Auto) 26.5 (20-40) % Jennings % (Auto) 8.4 (2-11) % Eos % (Auto) 1.5 (0-4) % Baso % (Auto) 0.3 (0-2) % Lymph # (Auto) 2.1 (1.2-4.9) X10*3/uL Jennings # (Auto) 0.7 (0.1-1.2) X10*3/uL Eos # (Auto) 0.1 (0.0-0.4) X10*3/uL Baso # (Auto) 0.0 (0.0-0.2) X10*3/uL Abs Immat Gran (auto) 0.02 (0.00-0.03) X10*3/uL Absolute Neuts (auto) 4.9 (2.0-8.3) x10*3/uL Absolute Nucleated RBC 0.000 (0.0-0.012) X10*3/uL Nucleated RBC % (auto) 0.0 (0.0-0.2) /100WBC PT 11.4 (10.9-12.4) SEC INR 1.0 (0.9-1.1) APTT 35.9 H (26.7-34.1) SEC Sodium 140 (135-145) mmol/L Potassium 3.5 (3.3-5.1) mmol/L Chloride 107 (96-108) mmol/L Carbon Dioxide 23 (22-29) mmol/L Anion Gap 14 (12-20) BUN 10 (9-16) mg/dL Creatinine 0.85 (0.5-1.4) mg/dL Estim Creat Clear Calc 102.6 Estimated GFR > 60 POC Glucose 186 H (60-115) mg/dL Random Glucose 161 H (60-115) mg/dL Calcium 9.3 (8.4-10.2) mg/dL Troponin I High Sens < 2.7 (<3.5-35.0) ng/L Triglycerides 155 H (<150) mg/dL Cholesterol 144 (<200) mg/dL LDL Cholesterol, Calc 75 (<100) mg/dL HDL Cholesterol 38 L (>40) mg/dL Urine Color Yellow Urine Appearance Clear Urine pH 6.5 (5.0-9.0) Ur Specific [place] 1.020 (1.005-1.025) Urine Protein Negative (Neg-Trace) mg/dL Urine Glucose (UA) Negative (Negative) mg/dL Urine Ketones Negative (Negative) mg/dL Urine Blood Negative (Negative) Urine Nitrite Negative (Negative) Ur Leukocyte Esterase Negative (Negative) Urine RBC 0-2 (0-2) /HPF Urine WBC 0-5 (0-5) /HPF Ur Squamous Epith Cells 0-2 (0-2) /HPF Urine Bacteria None Seen (None Seen) Hyaline Casts 0-2 (0-2) /LPF Ethyl Alcohol < 10 mg/dL Influenza Type A (PCR) (Negative) Influenza Type B (PCR) (Negative) RSV RNA Qual (PCR) (Negative) SARS-CoV-2 RNA (RT-PCR) (Negative) 12/18/24 12/18/24 Range/Units 19:34 22:39 WBC (4.8-10.8) X10*3/uL RBC (4.60-5.80) X10*6/uL Hgb (14.0-18.0) g/dl Hct (42.0-52.0) % MCV (80.0-98.0) fL MCH (27.0-33.0) pg MCHC (31.0-36.0) g/dl RDW (11.0-16.0) % Plt Count (160-400) X10*3/uL MPV (9.4-12.4) fL Immature Gran % (Auto) (0.0-0.4) % Neut % (Auto) (45-73) % Lymph % (Auto) (20-40) % Jennings % (Auto) (2-11) % Eos % (Auto) (0-4) % Baso % (Auto) (0-2) % Lymph # (Auto) (1.2-4.9) X10*3/uL Jennings # (Auto) (0.1-1.2) X10*3/uL Eos # (Auto) (0.0-0.4) X10*3/uL Baso # (Auto) (0.0-0.2) X10*3/uL Abs Immat Gran (auto) (0.00-0.03) X10*3/uL Absolute Neuts (auto) (2.0-8.3) x10*3/uL Absolute Nucleated RBC (0.0-0.012) X10*3/uL Nucleated RBC % (auto) (0.0-0.2) /100WBC PT (10.9-12.4) SEC INR (0.9-1.1) APTT (26.7-34.1) SEC Sodium (135-145) mmol/L Potassium (3.3-5.1) mmol/L Chloride (96-108) mmol/L Carbon Dioxide (22-29) mmol/L Anion Gap (12-20) BUN (9-16) mg/dL Creatinine (0.5-1.4) mg/dL Estim Creat Clear Calc Estimated GFR POC Glucose 128 H (60-115) mg/dL Random Glucose (60-115) mg/dL Calcium (8.4-10.2) mg/dL Troponin I High Sens (<3.5-35.0) ng/L Triglycerides (<150) mg/dL Cholesterol (<200) mg/dL LDL Cholesterol, Calc (<100) mg/dL HDL Cholesterol (>40) mg/dL Urine Color Urine Appearance Urine pH (5.0-9.0) Ur Specific [place] (1.005-1.025) Urine Protein (Neg-Trace) mg/dL Urine Glucose (UA) (Negative) mg/dL Urine Ketones (Negative) mg/dL Urine Blood (Negative) Urine Nitrite (Negative) Ur Leukocyte Esterase (Negative) Urine RBC (0-2) /HPF Urine WBC (0-5) /HPF Ur Squamous Epith Cells (0-2) /HPF Urine Bacteria (None Seen) Hyaline Casts (0-2) /LPF Ethyl Alcohol mg/dL Influenza Type A (PCR) NEGATIVE (Negative) Influenza Type B (PCR) NEGATIVE (Negative) RSV RNA Qual (PCR) NEGATIVE (Negative) SARS-CoV-2 RNA (RT-PCR) NEGATIVE (Negative) Independent Interpretation I performed an independent interpretation of an: EKG, Plain X-Ray (Chest x-ray negative) and CT Scan (CT head negative for any acute evidence of bleed.) Radiology Impression Discussion of test interpretation with radiology: I have reviewed the radiologist's reading. External Record Review External record reviewed: Inpatient record Chronic Conditions Previous history of CVA history of diabetes history of hyponatremia. History of diabetes, hypertension Social Determinants Patient?s care significantly limited by Social Determinants of Health including: Low income and Problems related to primary support group Discharge Plan Discharge Clinical Impression: Cerebrovascular accident Patient Disposition: Xfer [facility] Prescriptions: No Action albuterol sulfate 2.5 mg /3 mL (0.083 %) Solution For Nebulization 2.5 mg INHALATION Q4-6H PRN (Reason: Wheezing) sennosides [Tenisha-mango] 8.6 mg tablet 17.2 mg PO DAILY PRN (Reason: constipation) lamotrigine 200 mg tablet 200 mg PO BEDTIME atorvastatin 10 mg tablet 10 mg PO DAILY chlorpromazine 100 mg tablet 100 mg PO BEDTIME famotidine 40 mg tablet 40 mg PO BID propranolol 60 mg tablet 60 mg PO BID lamotrigine 25 mg tablet 50 mg PO BID benztropine 1 mg tablet 1 mg PO BID hydroxyzine HCl 25 mg tablet 25 - 50 mg PO DAILY gabapentin 100 mg capsule 100 mg PO TID topiramate 50 mg tablet 50 mg PO DAILY mirtazapine 7.5 mg tablet 7.5 mg PO BEDTIME ramelteon 8 mg tablet 8 mg PO BEDTIME docusate sodium 100 mg capsule 200 mg PO DAILY lisinopril 5 mg tablet 5 mg PO DAILY cyclobenzaprine 10 mg tablet 10 mg PO Q8H Qty: 20 0RF tramadol 50 mg tablet 50 mg PO Q6H PRN (Reason: pain) Qty: 20 0RF Referrals: Jenni Green MD [Primary Care Provider, Medical] - 12/22/24 Print Language: Maldivian
[2024-12-18 17:05] VITALS: BP 132/86; PULSE 88; RESP 18; TEMP 36.4; O2SAT 94
[2024-12-18] MEDS: iohexoL 350 MG/ML 100 ML INFUS..BTL IV (17:13)
[2024-12-18 18:24] LABS: MANUAL DIFF FLAG NO
[2024-12-18 18:35] LABS: INTERNATIONAL NORM RATIO 1.0 (0.9-1.1); Prothrombin Time 11.4 SEC (10.9-12.4)
--- NOTE | 2024-12-18 18:35 | PC.NURSE ---
Contact [facility] upon discharge for transport and d/c instructions, @ [phone] ([place] or [place])
[2024-12-18 18:38] LABS: Partial Thromboplastin Time 35.9 SEC (26.7-34.1)
[2024-12-18 18:42] LABS: Hematocrit 43.4 % (42.0-52.0); Hemoglobin 15.7 g/dl (14.0-18.0); Imm Gran Abs Auto 0.02 X10*3/uL (0.00-0.03); Imm Gran Pct Auto 0.3 % (0.0-0.4); Lymphocytes Absolute Auto 2.1 X10*3/uL (1.2-4.9); Mean Corpuscular HGB Conc 36.2 g/dl (31.0-36.0); Mean Corpuscular Hemoglobin 30.5 pg (27.0-33.0); Mean Corpuscular Volume 84.3 fL (80.0-98.0); NRBC Abs Auto 0.000 X10*3/uL (0.0-0.012); NRBC Pct Auto 0.0 /100WBC (0.0-0.2); Platelet Count 230 X10*3/uL (160-400); Red Blood Count 5.15 X10*6/uL (4.60-5.80); White Blood Count 7.8 X10*3/uL (4.8-10.8)
[2024-12-18 18:48] LABS: Appearance Urine Clear; Glucose Urine UA Negative (Negative); PH 6.5 (5.0-9.0); Specific Gravity - Urine 1.020 (1.005-1.025)
[2024-12-18 18:52] LABS: Troponin-I High Sensitivity < 2.7 ng/L (<3.5-35.0)
[2024-12-18 18:53] LABS: Anion Gap 14 (12-20); Blood Urea Nitrogen 10 mg/dL (9-16); Calcium 9.3 mg/dL (8.4-10.2); Carbon Dioxide 23 mmol/L (22-29); Chloride 107 mmol/L (96-108); Cholesterol 144 mg/dL (<200); Creatinine Clr Calc Pharmacy 102.6; Estimated Glomerular Filt Rate > 60; HDL Cholesterol 38 mg/dL (>40); Potassium 3.5 mmol/L (3.3-5.1); Sodium 140 mmol/L (135-145); Triglycerides 155 mg/dL (<150)
[2024-12-18 19:05] VITALS: BP 118/70; PULSE 74
[2024-12-18 19:07] LABS: Stroke Lab Use COMPLETE
[2024-12-18 19:30] VITALS: BP 132/84; PULSE 85; RESP 16; TEMP 36.4; O2SAT 95
--- OUTSIDE RECORDS SUMMARY | 2024-12-18 20:04 | XMS_ITS | Clinical Summary ---
Author Organization [facility] Address [address] [place] [address] [address] [place] [place] [id number] Phone Care Team Providers Care Social Staff Worker Name Role Phone Unavailable Primary Care Provider Unavailabl e Allergies Active Allergy Reactions Criticality Noted Date Comments Aspirin 12/19/2021 Haloperidol Other (see comments) 02/05/2021 Unconscious? Ibuprofen 12/19/2021 Penicillins Other (see comments) 02/05/2021 Makes nose blood Pineapple 12/19/2021 Medications traZODone (DESYREL) 150 MG tablet Take 1 tablet by mouth at night if needed 1 Active topiramate (TOPAMAX) 50 MG tablet Take 1 tablet by mouth 1 (one) time each day 1 Active tamsulosin (FLOMAX) 0.4 MG 24 hr capsule Take 1 capsule by mouth 1 (one) time each day 1 Active propranolol (INDERAL) 60 MG tablet TAKE ONE TABLET BY MOUTH two (2) times a day 2 Active OXcarbazepine (TRILEPTAL) 600 MG tablet TAKE ONE TABLET BY MOUTH two (2) times a day. SECOND DOSE TO BE GIVEN AT 7PM 2 Active hydrOXYzine (ATARAX) 50 MG tablet TAKE ONE TABLET BY MOUTH 3 (THREE) TIMES A DAY NEEDED FOR ANXIETY OR AGITATION 2 Active famotidine (PEPCID) 40 MG tablet TAKE ONE TABLET BY MOUTH two (2) times a day 2 Active benztropine (COGENTIN) 1 MG tablet TAKE 1 TABLET BY MOUTH TWICE DAILY DIRECTED 1 Active atorvastatin (LIPITOR) 10 MG tablet Take 10 mg by mouth 1 (one) time each day 2 Active acetaminophen (TYLENOL) 500 MG tablet Take by mouth every 6 (six) hours if needed for mild pain Active albuterol (2.5 MG/3ML) 0.083% nebulizer solution Take 2.5 mg by nebulization every 6 (six) hours if needed for wheezing Active chlorproMAZINE (THORAZINE) 100 MG tablet Take 100 mg by mouth in the morning and 100 mg in the evening and 100 mg before bedtime. Active fluticasone (FLONASE) 50 MCG/ACT nasal spray Administer 1 spray into each nostril 1 (one) time each day Active busPIRone (BUSPAR) 15 MG tablet 60 each, 0 Refill(s), Take 1 tablet by mouth twice a day as needed for anxiety, 0 Refills, 02/06/24 3:04:00 PM EST, Partial fill upon patient request if the prescription is for a schedule II opioid drug. 4 Active gabapentin (NEURONTIN) 100 MG capsule Refills 0, Maintenance, 12/07/22 10:04:00 AM EDT, Partial fill upon patient request if the prescription is for a schedule II opioid drug. 3 Active lamoTRIgine (LaMICtal) 100 MG tablet 4 Active lamoTRIgine (LaMICtal) 200 MG tablet Take 300 mg by mouth 2 Active lurasidone (LATUDA) 40 MG tablet 4 Active metFORMIN (GLUCOPHAGE) 500 MG tablet Take 1 tablet by mouth 4 Active mirtazapine (REMERON) 7.5 MG tablet 0 Refills, Maintenance, 12/07/22 10:04:00 AM EDT, Partial fill upon patient request if the prescription is for a schedule II opioid drug. 3 Active ramelteon (ROZEREM) 8 MG tablet Take 8 mg by mouth at bed time Active Active Problems Problem Noted Date Diagnosed Date Allergic rhinitis 12/19/2021 Asthma 12/19/2021 Backache 12/19/2021 Chronic constipation 12/19/2021 Chronic hyperglycemia 12/19/2021 Dupuytren's contracture 12/19/2021 Gastro-esophageal reflux disease with esophagiti s 12/19/2021 Hypercholesterolemia 12/19/2021 Injury of head 12/19/2021 Mass of pancreas 12/19/2021 Mixed anxiety and depressive disorder 12/19/2021 Migraine 12/19/2021 Headache 12/19/2021 Seizure disorder 12/19/2021 Hypo-osmolality and hyponatremia 06/28/2021 Bipolar disorder 06/28/2021 Essential (primary) hypertension 06/28/2021 Type 2 diabetes mellitus without complication Resolved Problems Problem Noted Date Diagnosed Date Resolved Date Type 2 diabetes mellitus wit h diabetic autonomic (poly)neuropathy 06/28/2021 06/28/2021 Immunizations Immunization Administration Dates Next Due Influenza Whole 01/05/2020,11/07/2013,01/24/2011 Influenza, Unspecified 12/29/2021,2020,01/24/2018,12/18/2017,09/0 06/2016,12/13/2015,01/20/2015,10/16/2013,11/26/19 13,09/25/2011,11/13/2009 Moderna SARS-COV-2 02/24/2021,05/26/2020, 021 Pneumococcal Polysaccharide 10/16/2013, 3 SARS-CoV-2, Unspecified 12/29/2021 Shingrix 04/08/2018,02/07/2018 Tdap 08/13/2009 Social History Tobacco Use Types Packs/Day Years Used Date Smoking Tobacco: Never Tobacco Cessation:Counseling Given: Not Answered Alcohol Use Standard Drinks/Week Comments Never 0 (1 standard drink = 0.6 oz pur e alcohol) Sex and Gender Information Value Date Recorded Sex Assigned at Not on file Legal Sex Male 8:36 AM EDT Gender Identity Not on file Sexual Orientation Not on file Last Filed Vital Signs Vital Sign Reading Time Taken Comments Blood Pressure 140/90 03/20/2024 2:56 PM EST Pulse 84 01/29/2023 3:57 PM EST Temperature - - Respiratory Rate - - Oxygen Saturation 96% 01/29/2023 3:57 PM EST Inhaled Oxygen Concentration - - Weight 96.3 kg (212 lb 3.2 oz) 03/20/2024 2:56 P M EST Height - - Body Mass Index - - Plan of Treatment Health Maintenance Due Date Last Done Comments Colorectal Cancer Screening: Annual FOBT 2011 Colorectal Cancer Screening: Colonoscopy 2011 Colorectal Cancer Screening: Sigmoidoscopy 2011 Pneumococcal Vaccine: 50+ Years (3 of 3 - PCV) 10/16/2014 10/16/2013, 2013 Diabetes: Hemoglobin A1C 06/28/2021 Diabetes: Ophthalmology Exam 06/28/2021 Diabetes: Pedal Pulse Checked 06/28/2021 Diabetes: Sensory Foot Exam 06/28/2021 Diabetes: Visual Foot Exam 06/28/2021 Influenza Vaccine (#1) 2024 2, 12/06/2020, 01/05/2020, Additional history exists Pneumococcal Vaccine: Peds (0 to 5 Years) and At-Risk Patients (6 to 49 Years) Discontinued 10/16/2013, 2013 Hepatitis B Vaccine Aged Out No longe r eligible based on patient's age to complete this topic Insurance Medicare Medicaid [place]
[2024-12-18 20:16] LABS: Resp Syncy Virus RNA Qual PCR NEGATIVE (Negative); SARS COV2 PCR INHOUSE NEGATIVE (Negative)
[2024-12-18 22:05] VITALS: BP 114/68; PULSE 78; RESP 14; TEMP 36.4; O2SAT 95
[2024-12-18 22:48] LABS: Glucose, Whole Blood 128 mg/dL (60-115)
[2024-12-19] VITALS (8 sets, daily range): BP systolic 112–144; BP diastolic 74–90; PULSE 72–99; RESP 17–20; TEMP 36.1–36.6; O2SAT 95–96; BMI 30.6
--- NOTE | 2024-12-19 | EEG_ITS ---
Reason: ams and slurred speech, possible seizure history History: hyponatremia, syncope, dizziness, PTSD, impulse control, bipolar, cognitive developmental delay, HTN, diabetes - Patient was brought to ED after detention staff noted slurred speech and new confusion. Patient reports dizziness and tingling in toes. Medication: aspirin, atorvastatin, enoxaparin, magnesium hydroxide, melatonin, ondansetron, oxycodone, sodium chloride, tramadol Technical description Photic stimulation: omitted Hyperventilation:?omitted Behavioral state: pleasant State of Consciousness: awake Skull defect: none Sedation: none Handedness: right Duration of study:?22 min ? 0? sec Description: This is a 16 channel EEG with an EKG lead. Patient is reported awake during the tracing. Background EEG rhythm is 10 to 16 hertz 5-20 microvolt posteriorly and lower amplitude fast anteriorly. Photic stimulation and hyperventilation were not performed. Cardiac lead does not reveal any significant abnormality. No sharp wave spikes or paroxysmal tendency noted. Impression: No significant abnormality noted on this EEG. MTDD
--- NOTE | 2024-12-19 00:23 | PM.IMHP ---
History of Present Illness Date of Service: 12/19/24 Attending physician on admission: Dominic Rhodes Chief Complaint: Slurred speech Patient is a 64-year-old male with a past medical history significant for previous stroke with speech deficits, HLD, mood disorder, HTN, chronic pain and class 1 obesity, who presented to the ED via EMS due to change in speech, slurred and new confusion upon waking up. The patient reports that he does not know why he reported to the ED, he states that his ?worker ?called EMS for an unknown reason. He denies any chest pain, shortness of breath, nausea, vomiting, abdominal pain or urinary symptoms including frequency, urgency or dysuria. No visual changes, headache or neck pain. He does report right-sided leg numbness but then states it is related to the bed. He then reports he is having right-sided leg pain. Workup in the ED has been reassuring, head CT and CTA head and neck both negative. UA and chest x-ray negative. Review of Systems Constitutional: Constitutional: Denies body ache(s), Denies chills, Denies fatigue, Denies fever(s) and Denies headache(s) Eyes: Eyes: Denies blurry vision and Denies change in vision ENT: Denies headache(s), Denies nasal congestion and Denies sore throat Cardiovascular: Cardiovascular: Denies chest pain, Denies rapid heart rate, Denies leg edema, Denies lightheadedness and Denies dyspnea Respiratory: Respiratory: Denies chest congestion, Denies cough, Denies dyspnea and Denies wheezing Gastrointestinal: Gastrointestinal: Denies abdominal pain, Denies diarrhea, Denies nausea and Denies vomiting Genitourinary: Genitourinary: Denies oliguria, Denies dysuria, Denies urinary frequency and Denies urinary urgency Musculoskeletal: Musculoskeletal: Reports as per HPI Integumentary/Breasts: Skin/Breast: Denies rash Neurologic: Reports Abnormal speech present, Reports confusion and Denies headache(s) Psychiatric: Psychiatric: Reports confusion Endocrine: Endocrine: Denies fatigue Hematologic/Lymphatic: Hematologic/Lymphatic: Denies easy bleeding and Denies easy bruising Allergic/Immunologic: Allergic/Immunologic: Denies wheezing [facility] Medical History Hyponatremia Syncope Dizziness PTSD (post-traumatic stress disorder) Impulse control disorder Bipolar disorder Cognitive developmental delay HTN (hypertension) Diabetes Social History Household Members: None Housing: Apartment Do you presently have visiting nurse or other home services: Yes (VNA daily) Alcohol intake: never Comment: 1;1 sitter at bedside Patient Tobacco Use Status: Never used Tobacco Smoked in Last 30 Days: No Use of substances other than those prescribed or required for medical reasons: No Advance Directives: No Advance Directives Information Provided: No Do you have a plan to hurt others: No Plan service: No Current occupational status: disabled Meds Allergies Allergy/AdvReac Type Severity Reaction Status Date / Time aspirin (ASPIRIN) Allergy Unknown NOSE BLEEDS Verified 12/18/24 17:01 haloperidol (From HALDOL) Allergy Unknown EYES ROLL Verified 12/18/24 17:01 ibuprofen (IBUPROFEN) Allergy Unknown NOSE BLEEDS Verified 12/18/24 17:01 lactose (LACTOSE) Allergy Unknown DIARRHEA Verified 12/18/24 17:01 Penicillins (PENICILLINS) Allergy Unknown NAUSEA Verified 12/18/24 17:01 pineapple (PINEAPPLE) Allergy Unknown ITCHING,LISETH Verified 12/18/24 17:01 H dairy Allergy Unknown Unknown Uncoded 12/18/24 17:01 pineapple Allergy Unknown Unknown Uncoded 12/18/24 17:01 SEASONAL ALLERGIES Allergy Unknown SNEEZING,FACE Uncoded 12/18/24 17:01 SWELLING Home Medications ?Medication ?Instructions ?Recorded ?Confirmed ?Last Taken ?Type albuterol sulfate 2.5 mg/3 mL 2.5 mg inhalation Q4-6H PRN 06/16/21 11/27/22 Unknown History (0.083 %) solution for nebulization Wheezing atorvastatin 10 mg tablet 10 mg PO DAILY 11/27/22 11/27/22 Unknown History benztropine 1 mg tablet 1 mg PO BID 11/27/22 11/27/22 Unknown History chlorpromazine 100 mg tablet 100 mg PO BEDTIME 11/27/22 11/27/22 Unknown History docusate sodium 100 mg capsule 200 mg PO DAILY 11/27/22 11/27/22 Unknown History famotidine 40 mg tablet 40 mg PO BID 11/27/22 11/27/22 Unknown History gabapentin 100 mg capsule 100 mg PO TID 11/27/22 11/27/22 Unknown History hydroxyzine HCl 25 mg tablet 25 - 50 mg PO DAILY anxiety 11/27/22 11/27/22 Unknown History lamotrigine 200 mg tablet 200 mg PO BEDTIME 11/27/22 11/27/22 Unknown History lamotrigine 25 mg tablet 50 mg PO BID 11/27/22 11/27/22 Unknown History lisinopril 5 mg tablet 5 mg PO DAILY 11/27/22 11/27/22 Unknown History mirtazapine 7.5 mg tablet 7.5 mg PO BEDTIME 11/27/22 11/27/22 Unknown History propranolol 60 mg tablet 60 mg PO BID 11/27/22 11/27/22 Unknown History ramelteon 8 mg tablet 8 mg PO BEDTIME 11/27/22 11/27/22 Unknown History sennosides 8.6 mg tablet (Tenisha-mango) 17.2 mg PO DAILY PRN constipation 11/27/22 11/27/22 Unknown History topiramate 50 mg tablet 50 mg PO DAILY 11/27/22 11/27/22 Unknown History Physical Exam Vital Signs and Narrative: Vital Signs: Last Vital Signs Temp 97.6 F 12/18/24 22:05 Pulse 78 12/18/24 22:05 Resp 14 12/18/24 22:05 BP 114/68 12/18/24 22:05 Pulse Ox 95 12/18/24 22:05 O2 Del Method Room Air 12/18/24 22:05 BMI result Body Mass Index 31.0 General: AOx3, no acute distress, speech slurred however is slurred at baseline. Patient is a poor historian, different responses for same question Resp: CTA bilaterally CVS: S1, S2, RRR GI: +BS, NT, no distention Skin: Warm, dry Neuro: Cranial nerves II-XII grossly intact bilaterally. Motor grossly intact bilaterally, ?RLE weakness and decreased sensation vs pain due to positioning per pt, unclear. No right upper extremity weakness, left upper extremity weakness or left lower extremity weakness Extremities: No pitting edema Psych: Appropriate affect Const: General: confusion Orientation/consciousness: confusion Neuro: General: confusion Speech: Abnormal speech present Results Labs 12/18/24 18:18 12/18/24 18:18 Labs: Laboratory Results - last 24 hr 12/18/24 12/18/24 12/18/24 16:54 18:18 18:34 MCV 84.3 MCH 30.5 MCHC 36.2 H RDW 13.2 Plt Count 230 MPV 9.1 L Immature Gran % (Auto) 0.3 Neut % (Auto) 63.0 Lymph % (Auto) 26.5 Bandera % (Auto) 8.4 Eos % (Auto) 1.5 Baso % (Auto) 0.3 Lymph # (Auto) 2.1 Bandera # (Auto) 0.7 Eos # (Auto) 0.1 Baso # (Auto) 0.0 Abs Immat Gran (auto) 0.02 Absolute Neuts (auto) 4.9 Absolute Nucleated RBC 0.000 Nucleated RBC % (auto) 0.0 PT 11.4 INR 1.0 APTT 35.9 H Anion Gap 14 Estim Creat Clear Calc 102.6 Estimated GFR > 60 POC Glucose 186 H Random Glucose 161 H Calcium 9.3 Troponin I High Sens < 2.7 Triglycerides 155 H Cholesterol 144 LDL Cholesterol, Calc 75 HDL Cholesterol 38 L Urine Color Yellow Urine Appearance Clear Urine pH 6.5 Ur Specific [place] 1.020 Urine Protein Negative Urine Glucose (UA) Negative Urine Ketones Negative Urine Blood Negative Urine Nitrite Negative Ur Leukocyte Esterase Negative Urine RBC 0-2 Urine WBC 0-5 Ur Squamous Epith Cells 0-2 Urine Bacteria None Seen Hyaline Casts 0-2 Ethyl Alcohol < 10 Influenza Type A (PCR) Influenza Type B (PCR) RSV RNA Qual (PCR) SARS-CoV-2 RNA (RT-PCR) 12/18/24 12/18/24 19:34 22:39 MCV MCH MCHC RDW Plt Count MPV Immature Gran % (Auto) Neut % (Auto) Lymph % (Auto) Bandera % (Auto) Eos % (Auto) Baso % (Auto) Lymph # (Auto) Bandera # (Auto) Eos # (Auto) Baso # (Auto) Abs Immat Gran (auto) Absolute Neuts (auto) Absolute Nucleated RBC Nucleated RBC % (auto) PT INR APTT Anion Gap Estim Creat Clear Calc Estimated GFR POC Glucose 128 H Random Glucose Calcium Troponin I High Sens Triglycerides Cholesterol LDL Cholesterol, Calc HDL Cholesterol Urine Color Urine Appearance Urine pH Ur Specific [place] Urine Protein Urine Glucose (UA) Urine Ketones Urine Blood Urine Nitrite Ur Leukocyte Esterase Urine RBC Urine WBC Ur Squamous Epith Cells Urine Bacteria Hyaline Casts Ethyl Alcohol Influenza Type A (PCR) NEGATIVE Influenza Type B (PCR) NEGATIVE RSV RNA Qual (PCR) NEGATIVE SARS-CoV-2 RNA (RT-PCR) NEGATIVE Assessment and Plan (1) Slurred speech: Status: Acute Plan Patient is a 64-year-old male with a past medical history significant for previous stroke with speech deficits, HLD, mood disorder, HTN, chronic pain and class 1 obesity, who presented to the ED via EMS due to change in speech, slurred and new confusion upon waking up. Admit for observation for possible TIA Slurred speech, confusion, ?RLE weakness - ASA 81 daily and high-intensity statin - MRI - echo - neuro consult - tele HLD - statin mood - continue home meds HTN - continue home meds class 1 obesity - weight loss encouraged med rec pending full code VTE prophylaxis: Lovenox Patient with reported slurred speech and confusion, possible right lower extremity weakness, concern for TIA, requiring admission for observation for further evaluation, monitoring and neurology consult. Quality Stroke Does the patient have a stroke diagnosis?: No VTE Prior VTE?: No VTE Risk Level:: Medical - moderate - high VTE Device Contraindication: Treatment Not Indicated VTE Drug Contraindication: N/A - Med Ordered
[2024-12-19 04:59] LABS: MANUAL DIFF FLAG NO
[2024-12-19 05:01] LABS: Hematocrit 43.6 % (42.0-52.0); Hemoglobin 15.2 g/dl (14.0-18.0); Imm Gran Abs Auto 0.02 X10*3/uL (0.00-0.03); Imm Gran Pct Auto 0.2 % (0.0-0.4); Lymphocytes Absolute Auto 2.6 X10*3/uL (1.2-4.9); Mean Corpuscular HGB Conc 34.9 g/dl (31.0-36.0); Mean Corpuscular Hemoglobin 29.4 pg (27.0-33.0); Mean Corpuscular Volume 84.3 fL (80.0-98.0); NRBC Abs Auto 0.000 X10*3/uL (0.0-0.012); NRBC Pct Auto 0.0 /100WBC (0.0-0.2); Platelet Count 233 X10*3/uL (160-400); Red Blood Count 5.17 X10*6/uL (4.60-5.80); White Blood Count 9.0 X10*3/uL (4.8-10.8)
[2024-12-19 05:18] LABS: Anion Gap 12 (12-20); Blood Urea Nitrogen 9 mg/dL (9-16); Calcium 9.3 mg/dL (8.4-10.2); Carbon Dioxide 22 mmol/L (22-29); Chloride 109 mmol/L (96-108); Creatinine Clr Calc Pharmacy 109.0; Estimated Glomerular Filt Rate > 60; Potassium 3.6 mmol/L (3.3-5.1); Sodium 139 mmol/L (135-145)
--- NOTE | 2024-12-19 06:13 | PC.NURSE ---
MRI form completed with pt and faxed.
--- NOTE | 2024-12-19 07:00 | CA_ITS ---
Transthoracic Echocardiogram Patient (Last, First, Middle): Evert Bartlett, Gender: Male Date of : 1960 Age: 64 Procedure Date: 12/19/2024 Procedure Type: Transthoracic Echocardiogram Location: ER Height: 175.26 cm Weight: 95.26 kg BSA: 2.11 m2 Heart Rate: bpm BP: 112 / 82 mmHg Want Ad Supervisor: Referring MD: Mary Mcmanus PA-C Symptoms: TIA Study Quality: Technically Difficult, contrast Conclusions: - Normal left ventricular size and systolic function. There is moderately increased left ventricular wall thickness. The visually estimated ejection fraction is between 60-65%. - Normal right ventricular cavity size and systolic function. - Bubble study performed but suboptimal imaging, cannot comment about shunting. The right atrium was not well visualized. - Bubble study performed but suboptimal imaging, cannot comment about shunting. - There is mild dilatation of the ascending aorta measuring 3.50 cm. Findings Left Ventricle Normal left ventricular size and systolic function. There is moderately increased left ventricular wall thickness. The visually estimated ejection fraction is between 60-65%. There is no evidence of regional wall motion abnormalities. Diastolic function is normal for age. Right Ventricle Normal right ventricular cavity size and systolic function. Atria The left atrium is normal in size. Bubble study performed but suboptimal imaging, cannot comment about shunting. The right atrium was not well visualized. Aortic Valve Normal aortic valve structure and function. There is no aortic valve stenosis. There is no aortic valve regurgitation. Mitral Valve The mitral valve appears normal. There is trace mitral valve regurgitation. There is no mitral valve stenosis. Pulmonic Valve The pulmonic valve is likely normal. Tricuspid Valve Normal tricuspid valve structure. Tricuspid regurgitation envelope is inadequate for calculation of right ventricular systolic pressure. Low right atrial pressure. Great Vessels There is mild dilatation of the ascending aorta measuring 3.50 cm. Venous The inferior vena cava is collapsed, consistent with reduced intravascular volume. Pericardium/Pleural There is no evidence of pericardial effusion. Prior Study Comparison No prior study available for comparison. Measurements 2D Linear Measurements IVSd: 1.32 0.6-0.9/0.6-1.0 cm LVIDd: 4.12 3.9-5.3/4.2-5.9 cm LVIDd Index: 1.95 2.4-3.2/2.2-3.1 cm/m2 LVIDs: 2.65 2.0-3.6 cm LVPWd: 1.26 0.7-1.1 cm LA Diam: 2.10 2.7-3.8/3.0-4.0 cm LAIDs Index: 1.00 1.5-2.3 cm/m2 LV Mass: 240.06 67-162/88-224 g LV Mass Index: 113.77 43-95/49-115 g/m2 LVOT Diam: 2.30 3.0+(-)1.3 cm Mitral Valve MV Pk E: 0.41 MV PK A: 0.69 MV Decel Time: 122.00 E/A: 0.60 E'Lateral: 6.42 E'Medial: 4.24 E/E' Med: 9.70 E/E' Lat: 6.40 PHT: 36.00 MVA PHT: 6.11 Decel Oliver: 3.37 Aortic Valve AoV Pk Roc: 0.92 AoV Mn Roc: 0.68 AoV VTI: 0.17 AoV Pk Grad: 3.00 Aov Mn Grad: 2.00 SINCERE Cont.VTI: 4.08 LVOT LVOT Pk Roc: 0.81 LVOT Mn Roc: 0.57 LVOT VTI: 0.17 LVOT Pk Grad: 3.00 LVOT Mn Grad: 1.00 LVOT Diam: 2.30 LVOT Area: 4.15 Diastolic Function MV Pk E: 0.41 MV Pk A: 0.69 E/A: 0.60 E'Medial: 4.24 E/E' Med: 9.70 E' Laterial: 6.42 E/E' Lat: 6.40 Right Ventricle TAPSE (mm): 21.90 Tricuspid Valve TR Pk Roc: 1.33 TR Pk Grad: 7.00 Great Vessels Aorta Sinus of Valsalva: 3.30 2.0-3.5 cm Ao Asc: 3.50 2.1-3.4 cm Pulmonary Valve PV Pk Roc: 1.05 Peak PV Grad: 4.00 Updated in Other Vendor System with Status of Final Daniel Watson MD electronically signed on 12/21/2024 3:06:21 PM with status of Final
[2024-12-19 07:32] LABS: Glucose, Whole Blood 177 mg/dL (60-115)
[2024-12-19] MEDS: 0.9 % Sodium Chloride Flush 3 ML SYRINGE IVFLUSH ×3 (07:43→21:47)
--- NOTE | 2024-12-19 08:14 | PC.NURSE ---
Pt assisted into bedside recliner and verbally reports better comfort. Remains on tele, NSR. Steady with pivot transfer. Awaits MRI and bed assgn. Alert/oriented. Difficult to understand speech at times. Able to make needs known.
--- NOTE | 2024-12-19 09:09 | PHA.MEDREC ---
Addendum entered by Rajiv Spaulding, Samina 12/19/24 09:26: med rec checked by [facility] Original Note: Pharmacy Consult ? Medication Reconciliation Pharmacy has completed the medication reconciliation. Patient is a poor historian,however he did have a list of his medications from [facility] [employer] [phone]. Utilized claims and med list from patient to confirm med list. Patient is no longer taking Gabapentin 100 mg, Mirtazapine 7.5 mg, and Ramelteon 8 mg. Patient thinks he took his medications 2 days ago.
--- NOTE | 2024-12-19 09:15 | PC.NURSE ---
Addendum entered by Rajiv Spaulding, PharmD 12/19/24 09:27: med rec checked by [facility] Original Note: Pt gave permission for staff to speak to Celina, paint line supervisor for [employer], about his care. Celina's # .
--- NOTE | 2024-12-19 10:01 | PC.NURSE ---
Pt at MRI at this time
--- NOTE | 2024-12-19 10:19 | PC.NURSE ---
returned from MRI, VSS. Reports dizziness remains. Denies pain. Neuros intact/unchanged from prior. ECHO being done at this time.
[2024-12-19 11:47] LABS: Glucose, Whole Blood 144 mg/dL (60-115)
--- NOTE | 2024-12-19 12:40 | PC.NURSE ---
Staff from [facility] here, brought in updated med list, sent to pharmacy staff
--- NOTE | 2024-12-19 12:54 | PM.NEUROCN ---
History of Present Illness Data of Consult Service Date: 12/19/24 Primary Care Provider: Jenni Green MD MALINDA Loyd is a 64-year-old male patient with a past medical history of a documented stroke with notable speech deficits, hyperlipidemia, mood disorder, hypertension, chronic pain, and obesity who presented to the emergency department via EMS due to a change in speech which was noted to be slurred and new confusion upon awakening according to his [facility] staff. On arrival to the emergency room the patient was not aware of why he was transferred to the emergency room but noted that his ?worker? called EMS. He denied any vision changes, headache or neck pain according to documentation. He did however report right-sided leg numbness and weakness though he felt it was caused from sleeping on it incorrectly. Workup in the emergency room included a CT of the head and a CTA of the head and neck both of which were nonacute/negative. A UA and chest x-ray were negative. There was no evidence of infection on his lab work including absence of leukocytosis and absence of any influenza, RSV, or COVID. When I saw the patient today, he reported to me that he still feels slightly confused and his right lower extremity still feels weak. He denies any sensory changes. He does however report to me a headache which he tells me is located in the frontal area and similar to previous headache episodes in the past. This has been present he believes since he came to the hospital. He is unsure if his speech has changed in comparison to his baseline. He does tell me that he has a history of seizure but has not had a seizure in many years. He also tells me he has a history of headaches but denies a history of migraine. He is on topiramate and propranolol. The patient tells me he is on topiramate for his headaches but in his chart it is documented that he is taking the topiramate for his moods. He is on propranolol for hypertension according to his med list. The patient tells me that he has been ?out of his topiramate? for the past week or so. Review of Systems Review of Systems: Yes all other systems are reviewed and are negative Neurologic: Reports Abnormal speech present PMFSH Past Medical History Medical History Hyponatremia Syncope Dizziness PTSD (post-traumatic stress disorder) Impulse control disorder Bipolar disorder Cognitive developmental delay HTN (hypertension) Diabetes Social History Social History Household Members: None Housing: Apartment Do you presently have visiting nurse or other home services: Yes (VNA daily) Alcohol intake: never Comment: 1;1 sitter at bedside Patient Tobacco Use Status: Never used Tobacco Smoked in Last 30 Days: No Use of substances other than those prescribed or required for medical reasons: No Advance Directives: No Advance Directives Information Provided: No Do you have a plan to hurt others: No Plan Nutrition Risks: No Nutritional Risk service: No Current occupational status: disabled Meds Allergies Allergy/AdvReac Type Severity Reaction Status Date / Time aspirin (ASPIRIN) Allergy Unknown NOSE BLEEDS Verified 12/18/24 17:01 haloperidol (From HALDOL) Allergy Unknown EYES ROLL Verified 12/18/24 17:01 ibuprofen (IBUPROFEN) Allergy Unknown NOSE BLEEDS Verified 12/18/24 17:01 lactose (LACTOSE) Allergy Unknown DIARRHEA Verified 12/18/24 17:01 Penicillins (PENICILLINS) Allergy Unknown NAUSEA Verified 12/18/24 17:01 pineapple (PINEAPPLE) Allergy Unknown ITCHING,LISETH Verified 12/18/24 17:01 H dairy Allergy Unknown Unknown Uncoded 12/18/24 17:01 pineapple Allergy Unknown Unknown Uncoded 12/18/24 17:01 SEASONAL ALLERGIES Allergy Unknown SNEEZING,FACE Uncoded 12/18/24 17:01 SWELLING Active Medications: Current Medications Acetaminophen (Acetaminophen 325 Mg Tablet) 975 mg PO Q6H PRN PRN Reason: Pain, Mild 1-3,fever,headache Aspirin (Aspirin 81 Mg Tab.Chew) 81 mg PO DAILY [facility] Last Admin: 12/19/24 12:10 Dose: 81 mg Atorvastatin Calcium (Atorvastatin Calcium 80 Mg Tablet) 80 mg PO DAILY [facility] Last Admin: 12/19/24 07:42 Dose: 80 mg Dextrose (Dextrose 50 % 25 Gm/50 Ml Syringe) 25 gm IVPUSH Q15M PRN; Protocol PRN Reason: per Hypoglycemia Standing Ord. Enoxaparin Sodium (Enoxaparin Sodium 40 Mg/0.4 Ml Syringe) 40 mg SUBCUT Q24H [facility] Last Admin: 12/19/24 01:00 Dose: 40 mg Glucose (Glucose Gel 15 Gm Gel..Gram.) 15 gm PO Q15M PRN; Protocol PRN Reason: per Hypoglycemia Standing Ord. Insulin Human Lispro (Insulin Lispro 100 Unit/Ml 3 Ml Vial) 0 unit SUBCUT [facility]; Protocol Last Admin: 12/19/24 12:11 Dose: Not Given Magnesium Hydroxide (Milk Of Magnesia 30 Ml Oral.Susp) 30 ml PO DAILY PRN PRN Reason: Constipation Melatonin (Melatonin 3 Mg Tablet) 6 mg PO BEDTIME PRN PRN Reason: Insomnia Last Admin: 12/19/24 01:17 Dose: 6 mg Ondansetron HCl (Ondansetron Hcl 4 Mg/2 Ml Vial) 4 mg IVPUSH Q8H PRN PRN Reason: Nausea and Vomiting Oxycodone HCl (Oxycodone Hcl Immed Release 5 Mg Tablet) 5 mg PO Q6H PRN PRN Reason: Pain, Severe (Pain Scale 7-10) Sodium Chloride (0.9 % Sodium Chloride Flush 3 Ml Syringe) 3 ml IVFFORMERLY [facility] Last Admin: 12/19/24 07:43 Dose: 3 ml Tramadol HCl (Tramadol Hcl 50 Mg Tablet) 50 mg PO Q6H PRN PRN Reason: Pain, Moderate(Pain Scale 4-6) Home Medications ?Medication ?Instructions ?Recorded ?Confirmed ?Last Taken ?Type albuterol sulfate 2.5 mg/3 mL 2.5 mg inhalation Q4-6H PRN 06/16/21 12/19/24 Unknown History (0.083 %) solution for nebulization Wheezing atorvastatin 10 mg tablet 10 mg PO BEDTIME 11/27/22 12/19/24 Unknown History benztropine 1 mg tablet 1 mg PO BID 11/27/22 12/19/24 Unknown History chlorpromazine 100 mg tablet 100 mg PO BEDTIME 11/27/22 12/19/24 Unknown History docusate sodium 100 mg capsule 100 mg PO BID 11/27/22 12/19/24 Unknown History famotidine 40 mg tablet 40 mg PO BID@0630,1630 11/27/22 12/19/24 Unknown History lamotrigine 200 mg tablet 200 mg PO BEDTIME 11/27/22 12/19/24 Unknown History propranolol 60 mg tablet 60 mg PO BID 11/27/22 12/19/24 Unknown History sennosides 8.6 mg tablet (Tenisha-mango) 17.2 mg PO DAILY PRN constipation 11/27/22 12/19/24 Unknown History topiramate 50 mg tablet 50 mg PO DAILY 11/27/22 12/19/24 Unknown History acetaminophen 500 mg tablet 500 mg PO Q6H PRN Fever Or Pain 12/19/24 12/19/24 Unknown History buspirone 10 mg tablet 10 mg PO BID PRN anxiety 12/19/24 12/19/24 Unknown History fluticasone propionate 50 1 spray intranasal BID 12/19/24 12/19/24 Unknown History mcg/actuation nasal spray,suspension lamotrigine 100 mg tablet 100 mg PO DAILY 12/19/24 12/19/24 Unknown History lurasidone 40 mg tablet 40 mg PO BEDTIME 12/19/24 12/19/24 Unknown History metformin 500 mg tablet 500 mg PO BID 12/19/24 12/19/24 Unknown History polyethylene glycol 3350 17 17 g PO DAILY 12/19/24 12/19/24 Unknown History gram/dose oral powder tamsulosin 0.4 mg capsule 0.4 mg PO DAILY 12/19/24 12/19/24 Unknown History Physical Exam Vital Signs: Vital Signs: Last Vital Signs Temp 97.8 F 12/19/24 12:00 Pulse 72 12/19/24 12:00 Resp 18 12/19/24 12:00 BP 122/84 12/19/24 12:00 Pulse Ox 96 12/19/24 12:00 O2 Del Method Room Air 12/19/24 12:00 BMI result Body Mass Index 31.0 Const: General: cooperative, comfortable and no acute distress Orientation/consciousness: oriented to person, oriented to place and oriented to time Neuro: General: oriented to person, oriented to place, oriented to time and Unable to assess gait Cranial nerves: Yes CN's II-XII intact bilaterally Speech: Abnormal speech present garbled Gait exam (Neuro): Unable to assess gait Motor exam (neuro): Abnormal motor strength present (RLE weakness 3/5 at hip, knee, and ankle ) Results Labs 12/19/24 04:22 12/19/24 04:22 Labs: Short CBC 12/18/24 12/19/24 Range/Units 18:18 04:22 WBC 7.8 9.0 (4.8-10.8) X10*3/uL Hgb 15.7 15.2 (14.0-18.0) g/dl Hct 43.4 43.6 (42.0-52.0) % Plt Count 230 233 (160-400) X10*3/uL BMP 12/18/24 12/19/24 18:18 04:22 Sodium 140 139 Potassium 3.5 3.6 Chloride 107 109 H Carbon Dioxide 23 22 BUN 10 9 Creatinine 0.85 0.80 Calcium 9.3 9.3 Urine 12/18/24 Range/Units 18:34 Urine Color Yellow Urine Appearance Clear Urine pH 6.5 (5.0-9.0) Ur Specific Ashley 1.020 (1.005-1.025) Urine Protein Negative (Neg-Trace) mg/dL Urine Glucose (UA) Negative (Negative) mg/dL Assessment and Plan (1) Right leg weakness: Status: Acute (2) Headache: Status: Acute (3) Altered mental state: Status: Acute Plan Evert is a 64-year-old male patient with a past medical history of a documented stroke with notable speech deficits, hyperlipidemia, mood disorder, hypertension, chronic pain, and obesity who presented to the emergency department via EMS due to a change in speech which was noted to be slurred and new onset confusion upon awakening according to staff. His history of stroke is vague in his MRI completed today is reassuring without any obvious evidence of acute or old infarcts. CT and CTA also normal. He does report a remote history of seizure and history of headaches though denies migraine. It is noteworthy however that patient is not likely a reliable historian. Exam today was noteworthy for some right lower extremity weakness without any sensory changes. His speech is garbled but not slurred. There was no facial droop. He does report a headache. I would consider ruling out seizure. This event may also represent migraine. I have ordered an EEG to be performed during his hospital stay. I am also recommending that he continue on topiramate and propranolol as documented on his home medication list. Procedures Date of Service Date of Service: 12/19/24
--- NOTE | 2024-12-19 14:36 | PC.NURSE ---
Speech to bedside for evaluation, however pt became agitated and declined assessment at that time. EEG being done now at bedside
--- NOTE | 2024-12-19 15:01 | MHC.SLORD ---
Speech Language Pathology Order Status: Received Speech/Language/Cognitive assessment this a.m., made attempts X2 in am with patient away at procedures at that time. In pm, attempted evaluation, patient refused, began to make attempt to leave (started to take off franklin) RN/[employer] contacted for assistance. Patient agreed to stay as long as I left. No evaluation completed today. STOPER will continue to attempt as needed.
--- NOTE | 2024-12-19 16:32 | PM.EVENT ---
Event Note Date of Service: 12/19/24 Event Note: Pt seen and evaluated on morning rounds. Resting comfortably in bed. Reports he still feels that his speech is slurred above baseline, though otherwise feels back to baseline. No acute events overnight. Agree with assessment and plan from admission HPI. Will follow up with MRI, echo, neurology consult, and PT/OT evaluation. Time Spent With Patient Time: Total time managing care of this patient today ____ minutes.
[2024-12-19 16:49] LABS: Glucose, Whole Blood 223 mg/dL (60-115)
[2024-12-19 21:50] LABS: Glucose, Whole Blood 127 mg/dL (60-115)
[2024-12-20] VITALS: BP 106/64; PULSE 70; RESP 20; TEMP 36.3; O2SAT 93
--- NOTE | 2024-12-20 | ECG_ITS ---
Test Reason : chest pain Blood Pressure : */* mmHG Vent. Rate : 72 BPM Atrial Rate : 72 BPM P-R Int : 150 ms QRS Dur : 96 ms QT Int : 396 ms P-R-T Axes : * 221 125 degrees QTcB Int : 433 ms Limb lead reversal Normal sinus rhythm Right superior axis deviation Abnormal ECG When compared with ECG of 18-Dec-2024 17:25, Limb leads are reversed. Referred By: Jeff Ulloa Electronically Signed By: Daniel Watson
--- NOTE | 2024-12-20 02:00 | PC.NURSE ---
pt lovenox admin delayed due to rapid response on the floor
[2024-12-20 04:00] VITALS: BP 125/78; PULSE 64; RESP 16; TEMP 36.3; O2SAT 94
[2024-12-20 07:24] VITALS: BP 121/78; PULSE 79; RESP 16; TEMP 36; O2SAT 95
[2024-12-20 07:29] LABS: Glucose, Whole Blood 155 mg/dL (60-115)
[2024-12-20] MEDS: 0.9 % Sodium Chloride Flush 3 ML SYRINGE IVFLUSH (09:36)
[2024-12-20 10:29] LABS: Troponin-I High Sensitivity < 2.7 ng/L (<3.5-35.0)
--- NOTE | 2024-12-20 10:31 | MHC.CM.PN ---
PT REPORTS HE LIVES ALONE AND HAS 10 OUTREACH HOURS PER WEEK PROVIDED BY [facility] HE IS ACTIVE WITH [facility] FOR DAILY MEDICATION ADMINISTRATION, HE REPORTS THEY VISIT IN THE MORNING AND LEAVE HIS PM MEDS OUT FOR HIM HE HAS NO HCP AND UNDERSTANDS HE CANNOT NAME HIS OUTREACH WORKERS PCP: ILEANA MONTOYA OBSERVATION NOTICE DELIVERED DCP: HOME, [facility]UME [facility] AND [facility] VS [facility] TRANSPORT
[2024-12-20 11:27] LABS: Glucose, Whole Blood 157 mg/dL (60-115)
[2024-12-20 11:32] VITALS: BP 126/78; PULSE 70; RESP 18; TEMP 36; O2SAT 95
--- NOTE | 2024-12-20 15:29 | MHC.CM.PN ---
THIS CM MET WITH PT TO DISCUSS DISCHARGE PLAN, PT EVALUATED HIM AND RECOMMENDED ACUTE REHAB. PT STATES HE WISHES TO RETURN HOME WITH RESUMPTION OF HIS PREVIOUS SERVICES. [facility] AWARE OF DISCHARGE PLAN, [facility] STAFF WILL PROVIDE TRANSPORT FOR HIM HOME TODAY. DCP: RETURN HOME & [facility], [facility], AND [facility].
--- NOTE | 2024-12-20 15:34 | P.DS_ITS ---
DS: Providers Provider Date of Service: 12/20/24 Date of admission: 12/19/24 00:20 Date of discharge: 12/20/24 Primary care physician: Jenni Green MD Consults: 12/19/24 00:26 Consult to Neurology Routine Consulting Provider: [facility] Reason for consultation: ? Tia slurred speech Has provider been notified: No DS: Diagnosis Discharge Diagnosis (1) Right leg weakness: Status: Acute (2) Headache: Status: Acute (3) Altered mental state: Status: Acute DS: Summary Hospital Course Hospital Course: From admission HPI: Date of Service: 12/19/24 Attending physician on admission: Dominic Rhodes Chief Complaint: Slurred speech Patient is a 64-year-old male with a past medical history significant for previous stroke with speech deficits, HLD, mood disorder, HTN, chronic pain and class 1 obesity, who presented to the ED via EMS due to change in speech, slu rred and new confusion upon waking up. The patient reports that he does not know why he reported to the ED, he states that his ?worker ?called EMS for an unknown reason. He denies any chest pain, shortness of breath, nausea, vomiting, abdominal pain or urinary symptoms including frequency, urgency or dysuria. No visual changes, headache or neck pain. He does report right-sided leg numbness but then states it is related to the bed. He then reports he is having right-sided leg pain. Workup in the ED has been reassuring, head CT and CTA head and neck both negative. UA and chest x-ray negative. Hospital course Pt was admitted to the hospital for concerns for worsening slurring of speech and confusion as noted by his PAPER STEAMER concerning for possible TIA vs CVA. Pt himself was unaware of why he was brought in to the hospital. Workup in the hospital including CT of head, CTA of head/neck, and MRI of brain were all negative for acute or chronic stroke. Pt was also seen and evaluated by Neurology who thought pt possibly had seizure disorder vs complex migraine as pt had not been taking his topiramate for at least 1 week. EEG was performed inpatient and negative for epileptic discharges. Patient's symptoms most likely secondary to severe migraine. Pt was seen and evaluated by Physical therapy who recommended rehab, but pt is well established with PAPER STE[employer]ER and pt declined rehab in favor of going home with the services he already has not Place. No medication changes has been suggested, and pt will be discharged to resume all of his previous home medications. Time Attestation Discharge Coordination Time (in mins): 37 Quality: Safe Use of Opioids Does Pt have an Active Cancer Diagnosis on the Problem List?: No Quality: Stroke Does the patient have a stroke diagnosis?: No Physical Exam Exam: Exam: General: AOx3, no acute distress Resp: CTA bilaterally CVS: S1, S2, RRR GI: +BS, NT, no distention Skin: Warm, dry Neuro: Cranial nerves II-XII grossly intact bilaterally. Motor grossly intact bilaterally. Negative pronator drift. No facial droop. Speech garbled but not clearly slurred. Some delayed spontaneity of speech. Global weakness noticed, but strength of upper and lower extremities appears symmetric. Extremities: No edema. Chronically contracted 5th digit bilaterally Psych: Appropriate affect Vital Signs: Vital Signs: Last Vital Signs Temp 96.8 F 12/20/24 11:32 Pulse 70 12/20/24 11:32 Resp 18 12/20/24 11:32 BP 126/78 12/20/24 11:32 Pulse Ox 95 12/20/24 11:32 O2 Del Method Room Air 12/20/24 11:32 BMI result Body Mass Index 30.6 DS: Data Data Completed and Pending Labs on day of discharge: Laboratory Results - last 24 hr 12/19/24 12/19/24 12/20/24 16:43 21:46 07:22 Hold Purple Top POC Glucose 223 H 127 H 155 H Troponin I High Sens 12/20/24 12/20/24 12/20/24 09:40 09:41 11:05 Hold Purple Top SEE NOTE POC Glucose 157 H Troponin I High Sens < 2.7 Discharge Plan Discharge Anticipated Discharge Date/Time: 12/20/24 14:00 Patient Disposition: Home Health Service Referrals: [facility] [Outside] - 1 Week Jenni Green MD [Primary Care Provider, Medical] - 12/22/24 Radha Lyons MD [Physician, Neurology] - 1 Week Discharge Medications: Continued albuterol sulfate 2.5 mg /3 mL (0.083 %) Solution For Nebulization 2.5 mg INHALATION Q4-6H PRN (Reason: Wheezing) sennosides [Tenisha-mango] 8.6 mg tablet 17.2 mg PO DAILY PRN (Reason: constipation) lamotrigine 200 mg tablet 200 mg PO BEDTIME atorvastatin 10 mg tablet 10 mg PO BEDTIME chlorpromazine 100 mg tablet 100 mg PO BEDTIME famotidine 40 mg tablet 40 mg PO BID@0630,1630 propranolol 60 mg tablet 60 mg PO BID benztropine 1 mg tablet 1 mg PO BID topiramate 50 mg tablet 50 mg PO DAILY docusate sodium 100 mg capsule 100 mg PO BID metformin 500 mg tablet 500 mg PO BID buspirone 10 mg tablet 10 mg PO BID PRN (Reason: anxiety) polyethylene glycol 3350 17 gram/dose powder 17 g PO DAILY lamotrigine 100 mg tablet 100 mg PO DAILY lurasidone 40 mg tablet 40 mg PO BEDTIME acetaminophen 500 mg Tablet 500 mg PO Q6H PRN (Reason: Fever Or Pain) tamsulosin 0.4 mg Capsule 0.4 mg PO DAILY fluticasone propionate 50 mcg/actuation [place],Suspension 1 spray INTRANASAL BID Rx Instructions: administer into each nostril Discharge Orders: Discharge Order (Routine); Ordered 12/20/24 Ordered By: Jeff Ulloa Activity on Discharge: As tolerated Stand Alone Forms: Patient Portal Discharge page Print Language: Turkish Care Plan Goals: See below Health Concerns: Transient ischemic attack Acute stroke Seizure disorder Complex migraine Hemiplegia Dysarthria Plan of Treatment: You were admitted hospital over concerns about increased slurred speech and confusion upon waking up at home that was noted by your PAPER STEAMER. Workup in the ED including CTA of head, CTA of head/neck, and MRI were all negative for acute or chronic stroke. You were seen and evaluated by Neurology with concern for possible complex migraine vs seizure disorder. You underwent an EEG to evaluate for seizure disorder, but EEG was negative. You reported that you has been out of topiramate for some time, and symptoms possibly secondary to severe migraine. Given negative workup you are medically cleared for discharge home without any medication changes. You should follow up with Neurology in 1-2 weeks for post hospital visit and management of symptoms. You should resume all of your other home medications. You were seen and evaluated by Physical therapy who recommended rehab, but you preferred to go home with services that you already have in place. Assessment: See discharge summary
[2024-12-20 15:37] VITALS: BP 134/82; PULSE 68; RESP 20; TEMP 36.3; O2SAT 95
[2024-12-20 17:15] LABS: Glucose, Whole Blood 126 mg/dL (60-115)
== END 2024-12-20 18:19 | disposition home health service (06) ==
LOC: HO.ED 22:58 → HO.EDOVER 12-19 00:23 → HO.IMC 12-19 15:50
PROVIDERS: Admitting Provider Physician Assistant; Emergency Provider Emergency Medicine Emergency Medical Services; PCP Family Medicine; Visit Provider Student in an Organized Health Care Education/Training Program
DX: R41.82 Altered mental status, unspecified (principal); I69.328 Other speech and language deficits following cerebral infarction; R47.81 Slurred speech; R51.9 Headache, unspecified; I10 Essential (primary) hypertension; R29.711 NIHSS score 11; E11.39 Type 2 diabetes mellitus with other diabetic ophthalmic complication; E66.811 Obesity, class 1; F39 Unspecified mood [affective] disorder; Z79.899 Other long term (current) drug therapy; Z03.818 Encounter for observation for suspected exposure to other biological agents ruled out; Z68.30 Body mass index [BMI] 30.0-30.9, adult
CPT/HCPCS: 36415; 70450; 70496; 70498; 70551; 71045; 80048; 80061; 80307; 81001; 82947; 84484; 85025; 85610; 85730; 87637; 93005; 93306; 95816; 96372; 97162; 97166; 99222; 99285; J1650; Q9957; Q9967

== ENCOUNTER → 2024-12-18 16:55 | Outpatient (BNV) | payer MEDICARE, MEDICAID, SELFPAY | PROVIDERS: Admitting Provider Physician Assistant; Emergency Provider Emergency Medicine Emergency Medical Services; PCP Family Medicine; Visit Provider Internal Medicine Cardiovascular Disease | DX: I44.4 Left anterior fascicular block (principal) | CPT/HCPCS: 93010 ==

== ENCOUNTER → 2024-12-18 16:55 | Outpatient (BNV) | payer MEDICARE, MEDICAID, SELFPAY | PROVIDERS: Emergency Provider Emergency Medicine Emergency Medical Services; PCP Family Medicine; Visit Provider Nuclear Medicine | DX: R47.81 Slurred speech (principal); R41.0 Disorientation, unspecified | CPT/HCPCS: 70450; 70496; 70498; 71045 ==

== ENCOUNTER 2024-12-19 00:20 | Outpatient (BNV) | payer MEDICARE, MEDICAID, SELFPAY | END 2024-12-19 14:30 | PROVIDERS: Admitting Provider Physician Assistant; Emergency Provider Emergency Medicine Emergency Medical Services; PCP Family Medicine; Visit Provider Psychiatry & Neurology Neurology | DX: R41.82 Altered mental status, unspecified (principal) | CPT/HCPCS: 95816 ==

== ENCOUNTER 2024-12-19 00:20 | Outpatient (BNV) | payer MEDICARE, MEDICAID, SELFPAY | END 2024-12-19 09:31 | PROVIDERS: Admitting Provider Physician Assistant; Emergency Provider Emergency Medicine Emergency Medical Services; PCP Family Medicine; Visit Provider Radiology Diagnostic Radiology | DX: R47.81 Slurred speech (principal) | CPT/HCPCS: 70551 ==

== ENCOUNTER 2024-12-19 00:20 | Outpatient (BNV) | payer MEDICARE, MEDICAID, SELFPAY | END 2024-12-19 07:00 | PROVIDERS: Admitting Provider Physician Assistant; Emergency Provider Emergency Medicine Emergency Medical Services; PCP Family Medicine; Visit Provider Internal Medicine Cardiovascular Disease | DX: G45.9 Transient cerebral ischemic attack, unspecified (principal) | CPT/HCPCS: 93306 ==

== ENCOUNTER 2024-12-19 00:20 | Outpatient (BNV) | payer MEDICARE, MEDICAID, SELFPAY | END 2024-12-20 08:23 | PROVIDERS: Admitting Provider Physician Assistant; Emergency Provider Emergency Medicine Emergency Medical Services; PCP Family Medicine; Visit Provider Internal Medicine Cardiovascular Disease | DX: R94.31 Abnormal electrocardiogram [ECG] [EKG] (principal); R07.9 Chest pain, unspecified | CPT/HCPCS: 93010 ==

== ENCOUNTER → 2024-12-19 00:20 | Outpatient (BNV) | payer MEDICARE, MEDICAID, SELFPAY | PROVIDERS: Admitting Provider Physician Assistant; Emergency Provider Emergency Medicine Emergency Medical Services; PCP Family Medicine; Visit Provider Student in an Organized Health Care Education/Training Program | DX: R47.81 Slurred speech (principal) | CPT/HCPCS: 99223; 99499 ==